=== PATIENT | female | born 1940 | race Caucasian/White ===

== ENCOUNTER 2021-12-03 12:05 | Inpatient (IN) ==
[2021-12-03 13:01] LABS: Basophils # (auto) 0.04 K/uL (0-0.2); Basophils % (auto) 0.6 %; Eosinophils # (auto) 0.21 K/uL (0-0.50); Eosinophils % (auto) 3.1 %; Hematocrit (blood only) 28.6 % (34.1-44.9); Hemoglobin 9.3 g/dl (12.0-16.0); Immature Granulocytes # (auto) 0.03 K/uL (0.00-0.02); Immature Granulocytes % (auto) 0.4 %; Lymphocytes # (auto) 0.92 K/uL (1.2-3.4); Lymphocytes % (auto) 13.4 %; Mean Corpuscular Hemoglobin 28.8 pg (25.0-34.0); Mean Corpuscular Hgb Conc 32.5 g/dL (32.0-36.0); Mean Corpuscular Volume 88.5 fL (80.0-100.0); Mean Platelet Volume 10.4 fL (9.4-12.3); Monocytes # (auto) 0.86 K/uL (0.24-0.82); Monocytes % (auto) 12.5 %; Neutrophils # (auto) 4.82 K/uL (1.4-6.5); Platelet Count 299 K/uL (130-400); RDW Standard Deviation 45.4 fL (36.4-46.3); Red Blood Count 3.23 M/uL (3.93-5.22); White Blood Count 6.88 K/ul (4.8-10.8)
--- NOTE | 2021-12-03 13:11 | XRay Report ---
XR chest 2V PA/lateral HISTORY: 81 years-old Female SOB acute shortness of breath COMPARISON: None TECHNIQUE: PA and lateral views of the chest FINDINGS: Cardiac silhouette is enlarged. Pulmonary vascular congestion. Mild reticular interstitial coarsening with trace pleural effusions. No pneumothorax or lobar airspace consolidation. Mild linear left midl shalom atelectasis versus scarring. Degenerative changes of the shoulders and spine. IMPRESSION: 1. Cardiomegaly with pulmonary vascular congestion and mild interstitial pulmonary edema. 2. Trace pleural effusions. ACT 112: Negative or not required by law. The above report was generated using voice recognition software. It may contain grammatical, syntax o r spelling errors. Electronically signed by: Helio Bennett M.D. 12/03/2021 1:09 PM
[2021-12-03 13:16] LABS: INR 1.1 (0.9-1.1); Partial Thromboplastin Time 27.1 Seconds (21.0-31.0); Prothrombin Time 11.5 Seconds (9.0-12.0)
[2021-12-03] MEDS ORDERED: ACETAMINOPHEN 1,000 MG/100 ML VIAL IV STA (13:20)
[2021-12-03] MEDS ORDERED: FUROSEMIDE 40 MG/4 ML VIAL IV ONE (13:20)
--- NOTE | 2021-12-03 13:31 | Emergency Department Note ---
Impression & Plan Acute on chronic heart failure with preserved ejection fraction (HFpEF), Atrial fibrillation, Breathlessness ED Provider Note Provider: Napoleon Nice MD DATE OF SERVICE: 12/03/2021 CHIEF COMPLAINT: Shortness of breath, swelling HISTORY OF PRESENT ILLNESS: Patient is a 81-year-old female with a history of atrial fibrillation on Eliquis, hypertension, and breast cancer presenting here today reporting worsening shortness of breath developing over the last week or 2. Some shortness of breath with exertion as well as increased swelling of both the legs. Does report she is a history of some heart failure as well and does take 40 mg of Lasix daily which has been taking including this morning. No sick contacts reported. No significant fevers reported. Denies chest pain. Has been traveling quite a bit and from the [place] originally in town visiting daughter today. Reports her last several days some increased pain around her left hip. This it has given her issues in the past related to hip replacement here but inserting a little bit more over the past 15 to 20 minutes she reports. No trauma or falls reported. Denies other significant abdominal pain. Denies chest pain again. REVIEW OF SYSTEMS: A total of 10 review of systems was obtained and negative except as stated above in the HPI. PAST MEDICAL HISTORY: As noted above MEDICATIONS: Reviewed home medications SOCIAL HISTORY: Normally lives in [place] PHYSICAL EXAM: GENERAL: alert and oriented on stretcher tachypneic Head: normocephalic and atraumatic EYES: No injection, discharge or icterus. NECK: Trachea midline. Supple. ENT: Mucous membranes pink and moist. LUNGS: Airway patent. No retractions. Breath sounds diminished with crackles in the bases and some increased work of breathing. HEART: Irregular rate and rhythm. No chest wall tenderness ABDOMEN: Soft and non-tender, without guarding or rebound. SKIN: Acyanotic, warm, dry, without rashes EXTREMITIES: 2+ lower extremity swelling from the knees down without active weeping noted. NEUROLOGICAL: No focal deficits. No aphasia. No facial droop or slurred speech. EK bpm atrial fibrillation. No acute ST segment elevation with some n onspecific T wave changes. QTc 479. CONTINUOUS CARDIAC MONITORING: was ordered and showed a heart rate of 80s-90s bpm in atrial fibrilation Patient's laboratory studies and imaging reviewed. Differential includes Reactive airway disease, pneumonia, pneumothorax, COPD, CHF, infections, cardiac ischemia, pulmonary embolism, musculoskeletal, gastrointestinal, as well as other pathologies. IMPRESSION/MEDICAL DECISION MAKING: Patient significant history of atrial fibrillation appears rate controlled at this time on amiodarone by report as well as anticoagulation which she states compliance with. Clinical evidence of fluid overload given some additional Lasix here initially. COVID test was sent. Complaining of some left hip pain as well and x-rays ordered here although history of replacement and no recent trauma; given her improvement with just Tylenol will cancel. Doubt this is in fectious or again bony in nature. She is working to breathe some at rest. Borderline hypoxia in the low 90s here on room air at rest. Blood work with some mild anemia. Creatinine 1.77 and unsure of baseline but states she has been referred to a kidney doctor to see so question if she has some underlying baseline CKD. No significant troponin elevation or LFT abnormality noted likely. Patient is anticoagulated and I doubt PE. Given her shortness of breath/work of breathing while at rest di scussed with her monitored diuresis with her CKD here at the hospital and her and her family were in agreement. Hospitalist contacted. DIAGNOSIS: CHF exacerbation, shortness of breath, atrial fibrillation, Left hip pain DISPOSITION: Hospitalist will evaluate Patient was agreeable with this plan. Past Med/Surg History Medical History Atrial fibrillation Breast cancer R breast cancer, s/p 21 XRT tx and lumpectomy Celiac disease CHF (congestive heart failure) Chronic low back pain Dermatitis herpetiformis GERD (gastroesophageal reflux disease) HTN (hypertension) Mitral valve prolapse Neuropathy RLS (restless legs syndrome) Surgical History History of left knee replacement History of right knee joint replacement History of tubal ligation Hx of foot surgery tendon release due to contracture S/P bilateral hip replacements Family History Other Family history non-contributory Social History Smoking Status: Never smoker Second Hand Exposure: No; Do You Dip or Chew Tobacco: No; Tobacco Cessation Education Requested by Patient: No Hx Alcohol Use: Yes Alcohol type: wine Alcohol Intake Frequency Comment: Socially Hx Substance Use: No Preferred Language: [place] Communication Ability: Effective Information Technology Administrator Required: No Beliefs That Will Affect Care: None marital status: / Current Living Situation: Alone Current Living Situation Comment: Lives in [place] current occupational status: retired Feels Safe at Home: Yes Safety Concerns: Feels Safe At This Time Assistive Devices: CPAP Allergies Allergies Allergy/AdvReac Type Severity Reaction Status Date / Time ferrous sulfate Allergy Diarrhea Verified 12/03/21 14:52 gluten Allergy Dermatitis Verified 12/03/21 14:52 herpetiformis pramipexole [From Mirapex] Allergy Dizziness Verified 12/03/21 14:52 Home Meds Home Medications Medication Instructions Recorded Confirmed acetaminophen 300 mg-codeine 30 mg 1 tab PO Q6H PRN Pain 12/03/21 12/03/21 tablet amiodarone 100 mg tablet 100 mg PO DAILY 12/03/21 12/03/21 apixaban 2.5 mg tablet 2.5 mg PO BID 12/03/21 12/03/21 calcium carbonate 500 mg-vitamin 1 tab PO DAILY 12/03/21 12/03/21 D3 10 mcg (400 unit) tablet carvedilol 12.5 mg tablet 12.5 mg PO BIDM 12/03/21 12/03/21 dapsone 25 mg tablet 25 mg PO DAILY PRN celiac disease 12/03/21 12/03/21 diltiazem HCl 240 mg 240 mg PO DAILY 12/03/21 12/03/21 capsule,extended release 24 hr furosemide 40 mg tablet 40 mg PO DAILY 12/03/21 12/03/21 gabapentin 400 mg capsule 400 mg PO QID 12/03/21 12/03/21 hydralazine 50 mg tablet 50 mg PO TID 12/03/21 12/03/21 lactobacillus combination no.4 3 3,000 mmu cells PO DAILY 12/03/21 12/03/21 billion cell capsule (Probiotic) multivitamin 2 tab PO DAILY 12/03/21 12/03/21 omeprazole 40 mg capsule,delayed 40 mg PO DAILY 12/03/21 12/03/21 release ropinirole 0.25 mg tablet 0.25 mg PO HS 12/03/21 12/03/21 rotigotine 1 mg/24 hour 1 mg transdermal DAILY 12/03/21 12/03/21 transdermal 24 hour patch (Neupro) zolpidem 6.25 mg tablet,extended 6.25 mg PO HS 12/03/21 12/03/21 release,multiphase Results & Data (ED) Vital Signs Vital Signs - 24 hr 12/03/21 12:06 12/03/21 12:10 12/03/21 12:37 Temperature 36.4 C L Temperature Source Temporal Artery Scan Pulse Rate 94 H Respiratory Rate 18 Respiratory Effort / Characteristics Non-Labored Respiratory Depth Normal Blood Pressure Position Sitting Pulse Oximetry 92 Oxygen Delivery Method Room Air Room Air Room Air Sepsis Recent Fever Within 48 Hours No Sepsis New/Unexplained Change in Mental Status No Sepsis Action Taken by Nursing No Action Required 12/03/21 12:37 12/03/21 12:37 12/03/21 12:37 Temperature Temperature Source Pulse Rate Respiratory Rate Respiratory Effort / Characteristics Spontaneous Respiratory Depth Blood Pressure Position Pulse Oximetry Oxygen Delivery Method Room Air Room Air Sepsis Recent Fever Within 48 Hours Sepsis New/Unexplained Change in Mental Status Sepsis Action Taken by Nursing Laboratory Data Result diagrams: 12/03/21 12:46 12/03/21 12:46 Lab Results 12/03/21 12/03/21 12/03/21 Range/Units 12:40 12:46 12:46 WBC 6.88 (4.8-10.8) K/ul RBC 3.23 L (3.93-5.22) M/uL Hgb 9.3 L (12.0-16.0) g/dl Hct 28.6 L (34.1-44.9) % MCV 88.5 (80.0-100.0) fL MCH 28.8 (25.0-34.0) pg MCHC 32.5 (32.0-36.0) g/dL RDW Std Deviation 45.4 (36.4-46.3) fL RDW Coeff of Carol Ann 14.0 (11.5-14.5) % Plt Count 299 (130-400) K/uL MPV 10.4 (9.4-12.3) fL Immature Gran % (Auto) 0.4 % Neut % (Auto) 70.0 % Lymph % (Auto) 13.4 % Pinal % (Auto) 12.5 % Eos % (Auto) 3.1 % Baso % (Auto) 0.6 % Neut # (Auto) 4.82 (1.4-6.5) K/uL Lymph # (Auto) 0.92 L (1.2-3.4) K/uL Pinal # (Auto) 0.86 H (0.24-0.82) K/uL Eos # (Auto) 0.21 (0-0.50) K/uL Baso # (Auto) 0.04 (0-0.2) K/uL Immature Gran # (Auto) 0.03 H (0.00-0.02) K/uL PT 11.5 (9.0-12.0) Seconds INR 1.1 (0.9-1.1) APTT 27.1 (21.0-31.0) Seconds PTT Ratio 1.0 Sodium (136-145) mmol/L Potassium (3.5-5.1) mmol/L Chloride (98-107) mmol/L Carbon Dioxide (21-32) mmol/L Anion Gap (3-11) BUN (6-23) mg/dl Creatinine (0.6-1.2) mg/dl Est Cr Clr Drug Dosing ml/min Est GFR ( Amer) ml/min Est GFR (Non-Af Amer) ml/min BUN/Creatinine Ratio (10-20) Glucose (70-99(Fasting)) mg/dl Calcium (8.5-10.1) mg/dl Magnesium (1.7-2.4) mg/dl Total Bilirubin (0.2-1.0) mg/dl AST (13-39) U/L ALT (7-52) U/L Alkaline Phosphatase (34-104) U/L Troponin I High Sens (0-14) pg/ml B-Natriuretic Peptide (0-100) pg/ml Total Protein (6.0-8.3) gm/dl Albumin (3.4-5.0) gm/dl Globulin (2.5-4.0) gm/dl Albumin/Globulin Ratio (0.9-2) TSH 1.333 (0.300-4.500) uIu/ml SARS-CoV-2, RNA, NAAT (NEGATIVE) 12/03/21 12/03/21 12/03/21 Range/Units 12:46 12:46 13:43 WBC (4.8-10.8) K/ul RBC (3.93-5.22) M/uL Hgb (12.0-16.0) g/dl Hct (34.1-44.9) % MCV (80.0-100.0) fL MCH (25.0-34.0) pg MCHC (32.0-36.0) g/dL RDW Std Deviation (36.4-46.3) fL RDW Coeff of Carol Ann (11.5-14.5) % Plt Count (130-400) K/uL MPV (9.4-12.3) fL Immature Gran % (Auto) % Neut % (Auto) % Lymph % (Auto) % Pinal % (Auto) % Eos % (Auto) % Baso % (Auto) % Neut # (Auto) (1.4-6.5) K/uL Lymph # (Auto) (1.2-3.4) K/uL Pinal # (Auto) (0.24-0.82) K/uL Eos # (Auto) (0-0.50) K/uL Baso # (Auto) (0-0.2) K/uL Immature Gran # (Auto) (0.00-0.02) K/uL PT (9.0-12.0) Seconds INR (0.9-1.1) APTT (21.0-31.0) Seconds PTT Ratio Sodium 136 (136-145) mmol/L Potassium 3.7 (3.5-5.1) mmol/L Chloride 101 (98-107) mmol/L Carbon Dioxide 26 (21-32) mmol/L Anion Gap 9 (3-11) BUN 44 H (6-23) mg/dl Creatinine 1.77 H (0.6-1.2) mg/dl Est Cr Clr Drug Dosing 23.7 ml/min Est GFR ( Amer) 30.7 ml/min Est GFR (Non-Af Amer) 26.5 ml/min BUN/Creatinine Ratio 24.9 H (10-20) Glucose 114 H (70-99(Fasting)) mg/dl Calcium 8.6 (8.5-10.1) mg/dl Magnesium 2.1 (1.7-2.4) mg/dl Total Bilirubin 0.4 (0.2-1.0) mg/dl AST 17 (13-39) U/L ALT 22 (7-52) U/L Alkaline Phosphatase 61 (34-104) U/L Troponin I High Sens 4.8 (0-14) pg/ml B-Natriuretic Peptide 272 H (0-100) pg/ml Total Protein 6.3 (6.0-8.3) gm/dl Albumin 3.7 (3.4-5.0) gm/dl Globulin 2.6 (2.5-4.0) gm/dl Albumin/Globulin Ratio 1.4 (0.9-2) TSH (0.300-4.500) uIu/ml SARS-CoV-2, RNA, NAAT NEGATIVE (NEGATIVE) Administered Medications Carvedilol (Carvedilol 12.5 Mg Tab) 12.5 mg PO BIDM [facility] Stop: 01/02/22 16:59 Last Admin: 12/03/21 17:18 Dose: 12.5 mg Documented By: JASPAL Amiodarone HCl/Dextrose (Nexterone / D5w) 360 mg in 200 mls @ 33.333 mls/hr IV ONE ONE Stop: 12/03/21 22:59 Last Admin: 12/03/21 17:21 Dose: 1 mg/min, 33.3 mls/hr Documented By: JASPAL Co-signed By: MS Gautam (*Neupro*Order Awaiting Action) 1 each N/A QS [facility] Stop: 01/02/22 16:59 Last Admin: 12/03/21 17:15 Dose: Not Given Documented By: JASPAL Discontinued Medications Amiodarone HCl (Amiodarone Iv Bolus & Drip) 1 each IV NOW STA; Protocol Stop: 12/03/21 16:52 Last Admin: 12/03/21 18:06 Dose: Not Given Documented By: MaribelT Furosemide (Furosemide 40 Mg/4 Ml Vial) 40 mg IV ONE ONE Stop: 12/03/21 13:21 Last Admin: 12/03/21 13:36 Dose: 40 mg Documented By: APRIL Acetaminophen (Ofirmev) 1,000 mg in 100 mls @ 400 mls/hr IV NOW STA Stop: 12/03/21 13:34 Last Infusion: 12/03/21 13:51 Dose: 0 mls/hr Documented By: Admin: 12/03/21 13:36 Dose: 400 mls/hr Documented By: APRIL Amiodarone HCl/Dextrose (Nexterone / D5w) 150 mg in 100 mls @ 600 mls/hr IV NOW STA Stop: 12/03/21 17:00 Last Infusion: 12/03/21 17:21 Dose: 0 mls/hr Documented By: JASPAL Co-signed By: Admin: 12/03/21 17:10 Dose: 600 mls/hr Documented By: JT Co-signed By: Potassium Chloride (Potassium Chloride Crtab 20 Meq Tabcr) 40 meq PO NOW STA Stop: 12/03/21 15:52 Last Admin: 12/03/21 16:28 Dose: 40 meq Documented By: JASPAL Imaging Data Radiologist's Impression: Chest X-Ray 12/03/21 12:10 XR chest 2V PA/lateral HISTORY: 81 years-old Female SOB acute shortness of breath COMPARISON: None TECHNIQUE: PA and lateral views of the chest FINDINGS: Cardiac silhouette is enlarged. Pulmonary vascular congestion. Mild reticular interstitial coarsening with trace pleural effusions. No pneumothorax or lobar airspace consolidation. Mild linear left midlung atelectasis versus scarring. Degenerative changes of the shoulders and spine. IMPRESSION: 1. Cardiomegaly with pulmonary vascular congestion and mild interstitial pulmonary edema. 2. Trace pleural effusions. ACT 112: Negative or not required by law. The above report was generated using voice recognition software. It may contain grammatical, syntax or spelling errors. Electronically signed by: Helio Bennett M.D. 12/03/2021 1:09 PM Discharge Plan Visit Data Chief Complaint: Shortness of Breath/Dyspnea Stated Complaint: CONGESTIVE HEART FAILURE, SOB, SWELLING ED Provider: Napoleon Nice Discharge Problem: Acute on chronic heart failure with preserved ejection fraction (HFpEF), Atrial fibrillation, Breathlessness Patient Disposition: Admitted As Inpatient Discharge Instructions Interventions: ED Discharge Assessment Last Done: 12/03/21 14:40
[2021-12-03 13:33] LABS: Albumin Globulin Ratio 1.4 (0.9-2); Albumin Level 3.7 gm/dl (3.4-5.0); BUN Creatinine Ratio 24.9 (10-20); Bilirubin,Total 0.4 mg/dl (0.2-1.0); Calcium 8.6 mg/dl (8.5-10.1); Creatinine Clr Calc Pharmacy 23.7 ml/min; Est GFR (African American) 30.7 ml/min; Est GFR (Non-African American) 26.5 ml/min; Globulin 2.6 gm/dl (2.5-4.0); Magnesium 2.1 mg/dl (1.7-2.4); Potassium 3.7 mmol/L (3.5-5.1); Total Protein 6.3 gm/dl (6.0-8.3); Troponin I High Sensitivity 4.8 pg/ml (0-14)
--- NOTE | 2021-12-03 14:18 | Electrocardiogram Report ---
Test Reason : Blood Pressure : / mmHG Vent. Rate : 089 BPM Atrial Rate : 300 BPM P-R Int : 000 ms QRS Dur : 086 ms QT Int : 394 ms P-R-T Axes : 000 040 053 degrees QTc Int : 479 ms Atrial fibrillation Septal infarct , age undetermined Abnormal ECG No previous ECGs available Confirmed by Amadou Cifuentes ([id number]) on 12/03/2021 2:18:02 PM Referred By: REFERRED SELF Confirmed By:Amadou Cifuentes
--- NOTE | 2021-12-03 15:08 | History & Physical Report ---
Date of Service December 03, 2021 Assessment & Plan (1) Hypoxia: (2) CHF (congestive heart failure): (3) Atrial fibrillation: (4) HTN (hypertension): Plan This is an 81-year-old female who has a significant past medical history of atrial fibrillation anticoagulated on Eliquis, CHF, chronic low back and hip pain, history of right breast cancer status postlumpectomy and radiation, RLS, neuropathy, mitral valve prolapse, GERD, celiac disease, dermatitis herpetiformis, CKD stage III with unknown baseline creatinine who presents to ED secondary worsening shortness of breath and lower extremity swelling for 2 to 3 weeks. Pt resides in [place] and is followed by PCP Sonal Bender [facility] and acetone button paster Dr. Hu Washington of [facility] in [place]. She has been having progressive dyspnea for the past 2-3 weeks. Also c/o lower extremity swelling. Admits SOB has been on going for the last several months but recently worsening. Has been traveling to see family the past 2-3 weeks. Was hosp approx 1 month ago at [facility]. Prior to that hospitalization was active and walking daily, currently unable to do so due to SOB. Mild elevation in BNP and CXR concerning for decompensated CHF. Received 40mg IV lasix in ED. Hypoxia Acute CHF - unknown type awaiting echo admit to tele pt saturating 91% RA, but dyspneic with conversation, was placed on 2L obtain echocardiogram, consult cardiology received 40mg IV lasix in ED, also took her home dose of 40mg oral lasix. Monitor output Lasix 40mg IV daily, + KCL strict intake and output anderson cath ordered daily weights, low sodium, heart healthy diet CHF likely playing role; however degree of dyspnea appears out of proportion to degree of CHF other possibilities are PE (however, pt anticoagulated on eliquis and given cr would not perform CTA as will not knife changer), intolerance to current afib, anemia, pulmonary etiology, ? amio tox obtain bilateral venous Doppler, will await echo hold home lasix obtain thyroid studies obtain records from [facility] Dr. Hu Washington as well as PCP Sonal Bender, BPM ARCHITECT-C Atrial fibrillation rate controlled on diltiazem, amiodarone and eliquis pt states normally she is in NSR continue home meds, consult cards await echo results give 40meq KCL x 1 now to keep K > 4.0, mag is adequate CKD -3 baseline cr 1.6-1.8 per PCP office bun/cr 44 and 1.77 obtaining records from PCP per pt, she is scheduled to see nephro on 12/16 to establish care monitor renal fxn given diuresis Anemia unknown baseline h/h 9.3 and 28.6 denies bleeding obtain anemia panel in a.m. Celiac Disease/Dermatitis herpetiformis dapsone prn, GF diet HTN bp controlled in ED continue coreg, hydralazine, diltiazem Chronic back/L hip pain previous L hip replacement, XR ordered pt states she follows ortho in [place], they feel it is likely bursitis PT/OT when able on apap-codeine prn, gabapentin RLS continue require and neupro patch DVT ppx: Eliquis Dispo: PCU, Pt lives alone in [place] in 1st floor setup with 2 steps to enter, typically independent of adls/iadls, here visiting in [place] with Daughter in law FULL CODE - discussed with patient at bedside PCP: Sonal Bender, [place], [place] Pt was seen and examined in collaboration with Dr. Cavanaugh, please see addendum The chart was completed utilizing [employer] Speech voice recognition software. Grammatical errors, random word insertions, pronoun errors, and incomplete sentences are an occasional consequence of this system due to software limitations, ambient noise, and hardware issues. Any formal questions or concerns about the content, text, or information contained within the body of this dictation should be directly addressed to the provider for clarification. History of Present Illness Chief Complaint: Worsening SOB/lower extremity swelling x 2-3 weeks. Primary Care Provider: PCP: Sonal Bender [place], [place] This is an 81-year-old female who has a significant past medical history of atrial fibrillation anticoagulated on Eliquis, CHF, chronic low back and hip pain, history of right breast cancer status postlumpectomy and radiation, RLS, neuropathy, mitral valve prolapse, GERD, celiac disease, dermatitis herpetiformis, CKD stage III with unknown baseline creatinine who presents to ED secondary worsening shortness of breath and lower extremity swelling for 2 to 3 weeks. Patient currently resides by herself in [place], [place]. She has been on the road for the past 3 weeks visiting family and is currently with her [id number] at bedside. Of significance she was hospitalized approximately 1 month ago at [facility] in [place]. She was monitored overnight and treated with IV diuresis due to CHF exacerbation and discharged home. Currently she is maintained on Lasix 40 mg daily. She has been unable to monitor her weights while being on the road. Over the last 6 months she has noticed an increase in pant size from a 10 to a 12. Over the last 2 to 3 weeks she has noticed a steady increase in lower extremity swelling even up to her knees. She also complains of shortness of breath at rest, with conversation and with exertion. Prior to her hospitalization 1 month ago she was walking on a regular basis for exercise. She does have known history of A. fib and states typically she is in sinus rhythm. She has been compliant with her amiodarone and Eliquis and has not missed any doses. She denies any recent fever, chills, sweats, lightheadedness, dizziness, fall, chest pain, cough, hemoptysis, URI symptoms, nausea, vomiting, abdominal pain, dysuria, increased urgency or frequency with urination, hematuria or melena. She has noticed an overall decrease in her urination. She also states her diet has fluctuated over the past 2 to 3 weeks secondary to recent travel. She does try to monitor her salt intake. She was recently placed on hydralazine, but otherwise no new meds changing. Allergies Allergy/AdvReac Type Severity Reaction Status Date / Time ferrous sulfate Allergy Diarrhea Verified 12/03/21 14:52 gluten Allergy Dermatitis Verified 12/03/21 14:52 herpetiformis pramipexole [From Mirapex] Allergy Dizziness Verified 12/03/21 14:52 Home Medications Medication Instructions Recorded Confirmed Type acetaminophen 300 mg-codeine 30 mg 1 tab PO Q6H PRN Pain 12/03/21 12/03/21 Hi story tablet amiodarone 100 mg tablet 100 mg PO DAILY 12/03/21 12/03/21 History apixaban 2.5 mg tablet 2.5 mg PO BID 12/03/21 12/03/21 History calcium carbonate 500 mg-vitamin 1 tab PO DAILY 12/03/21 12/03/21 History D3 10 mcg (400 unit) tablet carvedilol 12.5 mg tablet 12.5 mg PO BIDM 12/03/21 12/03/21 History dapsone 25 mg tablet 25 mg PO DAILY PRN celiac disease 12/03/21 12/03/21 History diltiazem HCl 240 mg 240 mg PO DAILY 12/03/21 12/03/21 History capsule,extended release 24 hr furosemide 40 mg tablet 40 mg PO DAILY 12/03/21 12/03/21 History gabapentin 400 mg capsule 400 mg PO QID 12/03/21 12/03/21 History hydralazine 50 mg tablet 50 mg PO TID 12/03/21 12/03/21 History lactobacillus combination no.4 3 3,000 mmu cells PO DAILY 12/03/21 12/03/21 History billion cell capsule (Probiotic) multivitamin 2 tab PO DAILY 12/03/21 12/03/21 History omeprazole 40 mg capsule,delayed 40 mg PO DAILY 12/03/21 12/03/21 History release ropinirole 0.25 mg tablet 0.25 mg PO HS 12/03/21 12/03/21 History rotigotine 1 mg/24 hour 1 mg transdermal DAILY 12/03/21 12/03/21 History transdermal 24 hour patch (Neupro) zolpidem 6.25 mg tablet,extended 6.25 mg PO HS 12/03/21 12/03/21 History release,multiphase Past Med/Surg History Medical History Atrial fibrillation Breast cancer R breast cancer, s/p 21 XRT tx and lumpectomy Celiac disease CHF (congestive heart failure) Chronic low back pain Dermatitis herpetiformis GERD (gastroesophageal reflux disease) HTN (hypertension) Mitral valve prolapse Neuropathy RLS (restless legs syndrome) Surgical History History of left knee replacement History of right knee joint replacement History of tubal ligation Hx of foot surgery tendon release due to contracture S/P bilateral hip replacements Family History Other Family history non-contributory Social History Smoking Status: Never smoker Second Hand Exposure: No; Do You Dip or Chew Tobacco: No; Tobacco Cessation Education Requested by Patient: No Hx Alcohol Use: Yes Alcohol type: wine Alcohol Intake Frequency Comment: Socially Hx Substance Use: No Preferred Language: German Communication Ability: Effective General Foundry Worker Required: No Beliefs That Will Affect Care: None marital status: / Current Living Situation: Alone Current Living Situation Comment: Lives in [place] current occupational status: retired Feels Safe at Home: Yes Safety Concerns: Feels Safe At This Time Assistive Devices: CPAP Review of Systems Review of Systems: All systems reviewed & are unremarkable except as noted in HPI & below Physical Exam Physical Exam: Constitutional: WD/WN, Elderly F, vitals as above, tachypneic with conversation, NAD, sitting up in bed, pleasant Head: Normocephalic, Atraumatic Eyes: PERRL, conjunctivae normal, anicteric sclerae ENMT: external ear and nose normal, oropharynx normal Neck: trachea midline, no thyromegaly normal visual inspection Respiratory: increased respiratory effort, +tachypnea, lungs clear to auscultat ion, no wheeze, rales, rhonchi. Normal insp/exp effort, no accessory muscle use Cardiovascular: regular rate, Irregular rhythm, no murmur appreciated, trace to +1 pre tibial edema Vessels: no JVD or carotid bruit Chest: normal inspection of chest Abdomen: normal bowel sounds, soft, nontender, no hepatosplenomegaly Musculoskeletal: no cyanosis or clubbing, AROM x 4 Skin: no rashes, warm and dry normal turgor Neurologic: PERRL, EOMI, accommodation nl, no face palsy, no dysarthria CN's II-XI intact bilaterally and moves all extremities Psychiatric: A+Ox3, euthymic affect Lymphatic: no cervical or axillary lymphadenopathy : deferred Results & Data Results & Data ([facility]) Vital Signs (Past 12 Hours) Vital Signs Temp Pulse Resp BP Pulse Ox O2 Del Method 12/03/21 14:40 36.8 C 102 H 20 136/87 93 Room Air 12/03/21 12:37 Room Air 12/03/21 12:37 Room Air 12/03/21 12:37 Room Air 12/03/21 12:10 Room Air 12/03/21 12:06 36.4 C L 94 H 18 92 Room Air Laboratory Results Short CBC 12/03/21 Range/Units 12:46 WBC 6.88 (4.8-10.8) K/ul Hgb 9.3 L (12.0-16.0) g/dl Hct 28.6 L (34.1-44.9) % Plt Count 299 (130-400) K/uL BMP 12/03/21 12:46 Sodium 136 Potassium 3.7 Chloride 101 Carbon Dioxide 26 BUN 44 H Creatinine 1.77 H Glucose 114 H Calcium 8.6 Liver Function 12/03/21 Range/Units 12:46 Total Bilirubin 0.4 (0.2-1.0) mg/dl AST 17 (13-39) U/L ALT 22 (7-52) U/L Alkaline Phosphatase 61 (34-104) U/L Albumin 3.7 (3.4-5.0) gm/dl Diagnostic Findings Chest X-Ray 12/03/21 12:10 XR chest 2V PA/lateral HISTORY: 81 years-old Female SOB acute shortness of breath COMPARISON: None TECHNIQUE: PA and lateral views of the chest FINDINGS: Cardiac silhouette is enlarged. Pulmonary vascular congestion. Mild reticular interstitial coarsening with trace pleural effusions. No pneumothorax or lobar airspace consolidation. Mild linear left midlung atelectasis versus scarring. Degenerative changes of the shoulders and spine. IMPRESSION: 1. Cardiomegaly with pulmonary vascular congestion and mild interstitial pulmonary edema. 2. Trace pleural effusions. ACT 112: Negative or not required by law. The above report was generated using voice recognition software. It may contain grammatical, syntax or spelling errors. Electronically signed by: Helio Bennett M.D. 12/03/2021 1:09 PM Medications Administered Medication List Discontinued Medications Furosemide (Furosemide 40 Mg/4 Ml Vial) 40 mg IV ONE ONE Stop: 12/03/21 13:21 Last Admin: 12/03/21 13:36 Dose: 40 mg Documented By: APRIL Acetaminophen (Ofirmev) 1,000 mg in 100 mls @ 400 mls/hr IV NOW STA Stop: 12/03/21 13:34 Last Infusion: 12/03/21 13:51 Dose: 0 mls/hr Documented By: Admin: 12/03/21 13:36 Dose: 400 mls/hr Documented By: BK ECG Rate (beats per minute): 89 Rhythm: atrial fibrillation Additional Comments: qtc 479ms COVID-19 Results Results COVID-19 Adm Lab Results: RBC 3.23 M/uL (3.93-5.22) L 12/03/21 WBC 6.88 K/ul (4.8-10.8) 12/03/21 Hgb 9.3 g/dl (12.0-16.0) L 12/03/21 Hct 28.6 % (34.1-44.9) L 12/03/21 Plt Count 299 K/uL (130-400) 12/03/21 Neutrophils (%) (Auto) 70.0 % 12/03/21 Lymphocytes (%) (Auto) 13.4 % 12/03/21 Monocytes # (Auto) 0.86 K/uL (0.24-0.82) H 12/03/21 Eosinophils # (Auto) 0.21 K/uL (0-0.50) 12/03/21 Immature Granulocyte % (Auto) 0.4 % 12/03/21 Neutrophils # (Auto) 4.82 K/uL (1.4-6.5) 12/03/21 Lymphocytes # (Auto) 0.92 K/uL (1.2-3.4) L 12/03/21 Monocytes # (Auto) 0.86 K/uL (0.24-0.82) H 12/03/21 Eosinophils # (Auto) 0.21 K/uL (0-0.50) 12/03/21 Basophils # (Auto) 0.04 K/uL (0-0.2) 12/03/21 Immature Granulocyte # (Auto) 0.03 K/uL (0.00-0.02) H 12/03 Na 136 mmol/L (136-145) 12/03/21 K 3.7 mmol/L (3.5-5.1) 12/03/21 Cl 101 mmol/L (98-107) 12/03/21 CO2 26 mmol/L (21-32) 12/03/21 Anion Gap 9 (3-11) 12/03/21 BUN 44 mg/dl (6-23) H 12/03/21 Creatinine 1.77 mg/dl (0.6-1.2) H 12/03/21 BUN/Creatinine Ratio 24.9 (10-20) H 12/03/21 Glucose Level 114 mg/dl (70-99(Fasting)) H 12/03/21 Ca 8.6 mg/dl (8.5-10.1) 12/03/21 Total Bilirubin 0.4 mg/dl (0.2-1.0) 12/03/21 AST/SGOT 17 U/L (13-39) 12/03/21 ALT/SGPT 22 U/L (7-52) 12/03/21 Alkaline Phosphatase 61 U/L (34-104) 12/03/21 Total Protein 6.3 gm/dl (6.0-8.3) 12/03/21 Albumin 3.7 gm/dl (3.4-5.0) 12/03/21 Globulin 2.6 gm/dl (2.5-4.0) 12/03/21 Albumin/Globulin Ratio 1.4 (0.9-2) 12/03/21 PTT 27.1 Seconds (21.0-31.0) 12/03/21 INR 1.1 (0.9-1.1) 12/03/21 SARS-CoV-2, RNA, NAAT NEGATIVE (NEGATIVE) 12/03/21 Chest X-Ray 12/03/21 Code Status & VTE Plan Code Status FULL CODE VTE Prophylaxis Plan VTE Prophylaxis will be ordered: No Supervising Physician Co-Signing Physician Notes I have seen and examined the patient and have discussed the case with the provider above. I agree with the assessment and plan as stated with the following exceptions. 81 yo F presents with overt SOB and hypoxia with minimal movement worse over the past 6 days. She is in atrial fibrillation and is unknown to us with no records, but this is not a new diagnosis for her. Heart rate is minimally elevated in the 90s-low 100s. She denies cough, fevers, chills or other signs/symptoms of infection. She is on anticoagulation making PE/DVT less likely but considered given the acute presentation. She has a normal HS troponin and no chest pain with atrial fibrillation without ST changes to suggest ischemia; ACS seems less likely. BNP only minimally elevated in the 200s. CXR reveals pulmonary vascular congestion but this severity does not appear to match the clinical picture. On physical exam she is dyspneic with conversation and with minimal movement, such as leaning forward, she dropped to 85% oxygen saturation. Lungs with minimal crackles at bases bilaterally and good airflow throughout. CV: S1/2 heard without m/g/r/ and no edema present (compression stockings taken off with this evaluation) in legs or feet bilaterally. Neuro: no gross focal deficits PSych: alert and oriented. Per cardiology who performed an echo this evening, she has a preserved ejection fraction. She received Lasix in the ER and a anderson was being placed for accurate I/Os. She was started on an amio drip. Cont to monitor in PCU. Records were requested from hospital stay and PCP notes. DO [facility] Hospital[facility] (1) CHF (congestive heart failure) Heart failure type: diastolic Heart failure chronicity: acute Qualified Code(s): I50.31 - Acute diastolic (congestive) heart failure (2) Atrial fibrillation Atrial fibrillation type: unspecified chronic Qualified Code(s): I48.20 - Chr onic atrial fibrillation, unspecified (3) HTN (hypertension) Hypertension type: unspecified Qualified Code(s): I10 - Essential (primary) hypertension
[2021-12-03] MEDS ORDERED: POTASSIUM CHLORIDE CRTAB 20 MEQ TABCR PO STA (15:51)
--- NOTE | 2021-12-03 16:06 | Cardiology Consultation ---
Date of Consultation December 03, 2021 Assessment & Plan (1) Acute on chronic heart failure with preserved ejection fraction (HFpEF): * Echocardiogram performed today reviewed independently reveals preserved LVEF. Atrial fibrillation with mildly elevated ventricular rate in the range of 100 110 bpm noted at the time of echo. * Agree with furosemide 40 mg IV daily, and substitute for 40 mg p.o. daily. Her creatinine of 1.7 appears to be relatively similar to her baseline. * Continue carvedilol. Patient is not on NARA/ARB at baseline. (2) Atrial fibrillation: * As noted, patient believes she has been on oral amiodarone for at least 6 years. No recent cardioversions but feels that perhaps this had occurred in the remote past. * Will hold oral amiodarone and start IV amiodarone to see if we can facilitate better rate control and may be from rhythm control. * Continue anticoagulation with Eliquis dose is already appropriately adjusted to 2.5 mg twice daily for her age and kidney function. * Continue carvedilol, diltiazem. * May consider cardioversion this admission, but will wait until volume status is improved. History of Present Illness Attending Physician: Ada Mead is an 81-year-old female seen in cardiology consultation per the request of Yvette Garcia PA-C for the evaluation of congestive heart failure. Patient is accompanied by her [id number], Peri, who lives locally and is actually a patient of [facility]. Patient resides in [place], [place] and has a history of congestive heart failure, atrial fibrillation, hypertension, and stage III chronic kidney disease. Patient has been traveling for the last 3 weeks with noted slow, progressive, worsening lower extremity edema and has developed progressive shortness of breath with walking even with minimal distances of about 10 feet. She had been hospitalized a [facility] in [place] about a month ago for similar symptoms. She believes she was in sinus rhythm at the time of that hospital stay. She does not recall how long she has had atrial fibrillation for, but notes that she has been on amiodarone for at least 6 years since she had moved from [place] to [facility] She denies any past history of known coronary heart disease, coronary stenting, bypass surgery, or valve surgery. Allergies Allergy/AdvReac Type Severity Reaction Status Date / Time ferrous sulfate Allergy Diarrhea Verified 12/03/21 14:52 gluten Allergy Dermatitis Verified 12/03/21 14:52 herpetiformis pramipexole [From Mirapex] Allergy Dizziness Verified 12/03/21 14:52 Home Medications Medication Instructions Recorded Confirmed Type acetaminophen 300 mg-codeine 30 mg 1 tab PO Q6H PRN Pain 12/03/21 12/03/21 History tablet amiodarone 100 mg tablet 100 mg PO DAILY 12/03/21 12/03/21 History apixaban 2.5 mg tablet 2.5 mg PO BID 12/03/21 12/03/21 History calcium carbonate 500 mg-vitamin 1 tab PO DAILY 12/03/21 12/03/21 History D3 10 mcg (400 unit) tablet carvedilol 12.5 mg tablet 12.5 mg PO BIDM 12/03/21 12/03/21 History dapsone 25 mg tablet 25 mg PO DAILY PRN celiac disease 12/03/21 12/03/21 History diltiazem HCl 240 mg 240 mg PO DAILY 12/03/21 12/03/21 History capsule,extended release 24 hr furosemide 40 mg tablet 40 mg PO DAILY 12/03/21 12/03/21 History gabapentin 400 mg capsule 400 mg PO QID 12/03/21 12/03/21 History hydralazine 50 mg tablet 50 mg PO TID 12/03/21 12/03/21 History lactobacillus combination no.4 3 3,000 mmu cells PO DAILY 12/03/21 12/03/21 History billion cell capsule (Probiotic) multivitamin 2 tab PO DAILY 12/03/21 12/03/21 History omeprazole 40 mg capsule,delayed 40 mg PO DAILY 12/03/21 12/03/21 History release ropinirole 0.25 mg tablet 0.25 mg PO HS 12/03/21 12/03/21 History rotigotine 1 mg/24 hour 1 mg transdermal DAILY 12/03/21 12/03/21 History transdermal 24 hour patch (Neupro) zolpidem 6.25 mg tablet,extended 6.25 mg PO HS 12/03/21 12/03/21 History release,multiphase Patient History Medical History Atrial fibrillation Breast cancer R breast cancer, s/p 21 XRT tx and lumpectomy Celiac disease CHF (congestive heart failure) Chronic low back pain Dermatitis herpetiformis GERD (gastroesophageal reflux disease) HTN (hypertension) Mitral valve prolapse Neuropathy RLS (restless legs syndrome) Surgical History History of left knee replacement History of right knee joint replacement History of tubal ligation Hx of foot surgery tendon release due to contracture S/P bilateral hip replacements Family History Other Family history non-contributory Social History Smoking Status: Never smoker Second Hand Exposure: Yes (); Hx Alcohol Use: Yes Alcohol Intake Frequency Comment: Socially Hx Substance Use: No Preferred Language: Belarusian Communication Ability: Effective marital status: / Current Living Situation: Alone Current Living Situation Comment: Lives in [place], [place] current occupational status: retired Feels Safe at Home: Yes Review of Systems Review of Systems: All systems reviewed & are unremarkable except as noted in HPI & below Physical Exam Constitutional: WD/WN, vitals as above Neck: trachea midline Respiratory: Auscultation: + diminished lung sounds (Mildly reduced breath sounds the bases) Cardiovascular: Rate/Rhythm: + tachycardic and + irregularly irregular Heart Sounds: no murmur Extremities: + edema (1+ lower extremity edema) Neurologic: PERRL, EOMI, accommodation nl, no face palsy, no dysarthria Genitourinary: Gonzalez catheter in place draining clear yellow urine Results & Data ([facility]) Vital Signs (Past 12 Hours) Vital Signs Temp Pulse Resp BP Pulse Ox O2 Del Method 12/03/21 14:40 36.8 C 102 H 20 136/87 93 Room Air 12/03/21 12:37 Room Air 12/03/21 12:37 Room Air 12/03/21 12:37 Room Air 12/03/21 12:10 Room Air 12/03/21 12:06 36.4 C L 94 H 18 92 Room Air Laboratory Results Cardiac Enzymes 12/03/21 12/03/21 Range/Units 12:46 12:46 AST 17 (13-39) U/L Troponin I High Sens 4.8 (0-14) pg/ml B-Natriuretic Peptide 272 H (0-100) pg/ml Coagulation 12/03/21 12/03/21 Range/Units 12:46 12:46 PT 11.5 (9.0-12.0) Seconds APTT 27.1 (21.0-31.0) Seconds B-Natriuretic Peptide 272 H (0-100) pg/ml CBC 12/03/21 Range/Units 12:46 WBC 6.88 (4.8-10.8) K/ul RBC 3.23 L (3.93-5.22) M/uL Hgb 9.3 L (12.0-16.0) g/dl Hct 28.6 L (34.1-44.9) % Plt Count 299 (130-400) K/uL Neut # (Auto) 4.82 (1.4-6.5) K/uL Lymph # (Auto) 0.92 L (1.2-3.4) K/uL Mccracken # (Auto) 0.86 H (0.24-0.82) K/uL Eos # (Auto) 0.21 (0-0.50) K/uL Baso # (Auto) 0.04 (0-0.2) K/uL Comprehensive Metabolic Panel 12/03/21 Range/Units 12:46 Sodium 136 (136-145) mmol/L Potassium 3.7 (3.5-5.1) mmol/L Chloride 101 (98-107) mmol/L Carbon Dioxide 26 (21-32) mmol/L BUN 44 H (6-23) mg/dl Creatinine 1.77 H (0.6-1.2) mg/dl Glucose 114 H (70-99(Fasting)) mg/dl Calcium 8.6 (8.5-10.1) mg/dl AST 17 (13-39) U/L ALT 22 (7-52) U/L Alkaline Phosphatase 61 (34-104) U/L Total Protein 6.3 (6.0-8.3) gm/dl Albumin 3.7 (3.4-5.0) gm/dl Intake and Output 12/03/21 12/03/21 12/03/21 06:59 14:59 22:59 Intake Total 100 / 100 Balance 100 / 100 Intake: IV 100 / 100 Acetaminophen 1,000 mg In 100 100 / 100 ml @ 400 mls/hr IV NOW STA Rx#: [id number] Other: Weight 75.3 kg Patient Weight 12/04/21 06:59 Weight 75.3 kg Diagnostic Findings EKG performed today 12/03/2021 and interpreted independently: Atrial fibrillation 89 bpm, age-indeterminate septal infarction. No previous tracings available for comparison. Chest x-ray performed today: Summary of radiology report, also image reviewed independently, no cardiac silhouette, mild pulmonary vascular congestion, trace pleural effusions
[2021-12-03] MEDS ORDERED: PROMETHAZINE HCL 6.25 MG in SODIUM CHLORIDE 0.9% 50 ML IV PRN (16:24)
[2021-12-03] MEDS ORDERED: POLYETHYLENE (MIRALAX) 17 GM PACK PO PRN (16:24)
[2021-12-03] MEDS ORDERED: ALUMINUM/MAGNESIUM SUSP 30 ML UDC PO PRN (16:24)
[2021-12-03] MEDS ORDERED: AMIODARONE / D5W 150 MG/100 ML BAG IV STA (16:51)
[2021-12-03] MEDS ORDERED: 0.2 MICRON FILTER SET 1 EACH IV STA (16:51)
[2021-12-03] MEDS ORDERED: STAT IV Infusion **Titration per Protocol STA (16:51)
[2021-12-03] MEDS ORDERED: AMIODARONE IV BOLUS & DRIP IV STA (16:51)
[2021-12-03] MEDS ORDERED: AMIODARONE / D5W 360 MG/200 ML BAG IV ONE (17:00)
--- NOTE | 2021-12-03 17:10 | Communication Note ---
Date of Service: December 03, 2021 Discussed with pharmacy Given pt eGFR recommended gabapentin dose is 200-700mg per day pt currently on 400mg QID will reduce dose for 400mg bid, if egfr persists, consider further reduction to daily. Eva Garcia PA-C
[2021-12-03] MEDS: carvediloL 12.5 MG TAB PO SCH (17:18)
[2021-12-03] MEDS: hydrALAZINE TAB 50 MG TAB PO SCH (20:33)
[2021-12-03] MEDS: ACETAMINOPHEN W/CODEINE #3 1 TAB PO PRN (20:33)
[2021-12-03] MEDS: ZOLPIDEM TARTRATE 5 MG TAB PO SCH (20:33)
[2021-12-03] MEDS: GABAPENTIN 400 MG CAP PO SCH (20:34)
[2021-12-03] MEDS: APIXABAN 2.5 MG TAB PO SCH (20:34)
[2021-12-03] MEDS ORDERED: rOPINIRole HCL 0.25 MG TABLET PO SCH (21:00)
[2021-12-03] MEDS: AMIODARONE / D5W 360 MG/200 ML BAG IV SCH (23:06)
[2021-12-04 08:13] LABS: Basophils # (auto) 0.04 K/uL (0-0.2); Basophils % (auto) 0.6 %; Eosinophils # (auto) 0.17 K/uL (0-0.50); Eosinophils % (auto) 2.4 %; Hematocrit (blood only) 27.3 % (34.1-44.9); Hemoglobin 8.9 g/dl (12.0-16.0); Immature Granulocytes # (auto) 0.02 K/uL (0.00-0.02); Immature Granulocytes % (auto) 0.3 %; Lymphocytes # (auto) 0.91 K/uL (1.2-3.4); Lymphocytes % (auto) 12.6 %; Mean Corpuscular Hemoglobin 28.1 pg (25.0-34.0); Mean Corpuscular Hgb Conc 32.6 g/dL (32.0-36.0); Mean Corpuscular Volume 86.1 fL (80.0-100.0); Mean Platelet Volume 10.6 fL (9.4-12.3); Monocytes # (auto) 0.99 K/uL (0.24-0.82); Monocytes % (auto) 13.7 %; Neutrophils # (auto) 5.09 K/uL (1.4-6.5); Neutrophils % (auto) 70.4 %; Platelet Count 304 K/uL (130-400); RDW Coefficient of Variation 14.2 % (11.5-14.5); Red Blood Count 3.17 M/uL (3.93-5.22); White Blood Count 7.22 K/ul (4.8-10.8)
[2021-12-04 08:39] LABS: BUN Creatinine Ratio 23.4 (10-20); Calcium 8.4 mg/dl (8.5-10.1); Creatinine Clr Calc Pharmacy 26.7 ml/min; Est GFR (African American) 35.2 ml/min; Est GFR (Non-African American) 30.4 ml/min; Potassium 3.8 mmol/L (3.5-5.1)
[2021-12-04 08:45] LABS: Estimated Average Glucose 131 mg/dl; Hemoglobin A1C 6.2 % (4.5-5.6)
[2021-12-04 08:56] LABS: Ferritin 39.3 ng/ml (8-388)
[2021-12-04] MEDS ORDERED: AMIODARONE 200 MG TAB PO SCH (09:00)
[2021-12-04 09:01] LABS: Folate (Folic Acid) 20.39 ng/ml (>5.38)
[2021-12-04] MEDS: carvediloL 12.5 MG TAB PO SCH ×2 (10:02→17:33)
[2021-12-04] MEDS: MULTIVITAMIN TAB PO SCH (10:03)
[2021-12-04] MEDS: dilTIAZem HCL 240 MG CAPCR PO SCH (10:03)
[2021-12-04] MEDS: CALCIUM 600MG + VIT D 400 IU TAB PO SCH (10:03)
[2021-12-04] MEDS: APIXABAN 2.5 MG TAB PO SCH ×2 (10:03→21:32)
[2021-12-04] MEDS: GABAPENTIN 400 MG CAP PO SCH ×2 (10:04→21:32)
[2021-12-04] MEDS: FUROSEMIDE 40 MG/4 ML VIAL IV SCH (10:04)
[2021-12-04] MEDS: hydrALAZINE TAB 50 MG TAB PO SCH ×3 (10:05→21:31)
[2021-12-04] MEDS: ADVANCED PROBIOTIC 1250 MG CAPSULE PO SCH (10:06)
[2021-12-04] MEDS: POTASSIUM CHLORIDE CRTAB 20 MEQ TABCR PO SCH (10:06)
[2021-12-04] MEDS: PANTOprazole 40 MG TAB PO SCH (10:06)
[2021-12-04] MEDS: ACETAMINOPHEN 325 MG TAB PO PRN (10:32)
[2021-12-04] MEDS: AMIODARONE / D5W 360 MG/200 ML BAG IV SCH ×2 (11:16→23:02)
[2021-12-04] MEDS: ACETAMINOPHEN W/CODEINE #3 1 TAB PO PRN ×2 (11:33→17:33)
--- NOTE | 2021-12-04 15:12 | XRay Report ---
XR hip LT 2V w pelvis CLINICAL HISTORY: hip pain TECHNIQUE: 2 views of the left hip and single frontal view of the pelvis were obtained. Comparison: None available at the time of this dictation. FINDINGS: There is no evidence of an acute fracture. 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 No soft tissue abnormality is seen. IMPRESSION: No evidence of acute osseous injury. Satisfactory appearance of bilateral hip arthroplasties. ACT 112: Negative or not required by law. Electronically signed by: Grant Galindo M.D. 12/04/2021 3:11 PM
[2021-12-04] MEDS: ROTIGOTINE 1 MG/24 HR TD SCH (15:47)
--- NOTE | 2021-12-04 17:03 | Hospitalist Progress Note ---
Date of Service December 04, 2021 Assessment & Plan (1) Hypoxia: Plan: - admit to tele - pt saturating 91% RA, but dyspneic with conversation, was placed on 2L - obtain echocardiogram - normal EF, in afib - consult cardiology - received 40mg IV lasix in ED, also took her home dose of 40mg oral lasix. Monitor output - continue with Lasix 40mg IV daily, + KCL - daily weights, low sodium, heart healthy diet - CHF likely playing role; however degree of dyspnea appears out of proportion to degree of CHF - other possibilities are PE (however, pt anticoagulated on eliquis and given cr would not perform CTA as will not global director air and climate change), intolerance to current jay b, anemia, pulmonary etiology - CHF and afib most likely - hold home lasix - obtain records from [employer] Dr. Hu [place] as well as PCP GABBI Corral - improving - Cardiolgy recs appreciated (2) CHF (congestive heart failure): Plan: - see above (3) Atrial fibrillation: Plan: - rate controlled - on diltiazem, amiodarone and eliquis - pt states normally she is in NSR - continue home meds but Cardiology started on amio drip - converted to NSR on amio - follow up cards for further recs (4) HTN (hypertension): Plan: - bp controlled in ED - continue coreg, hydralazine, diltiazem (5) CKD (chronic kidney disease): Plan: - baseline cr 1.6-1.8 per PCP office - bun/cr 44 and 1.77 - obtaining records from PCP - per pt, she is scheduled to see nephro on 12/16 to establish care - monitor renal fxn given diuresis (6) Anemia: Plan Celiac Disease/Dermatitis herpetiformis dapsone prn, GF diet Chronic back/L hip pain previous L hip replacement, XR ordered pt states she follows ortho in [place], they feel it is likely bursitis PT/OT when able on apap-codeine prn, gabapentin RLS continue require and neupro patch DVT ppx: Eliquis Dispo: PCU, Pt lives alone in [place], [place] in 1st floor setup with 2 steps to enter, typically independent of adls/iadls, here visiting in [place] with Daughter in law FULL CODE - discussed with patient at bedside PCP: GABBI Corral [place], [place] Admission and Anticipated Discharge Date Admission Date: December 03, 2021 Subjective Patient with Afib on AC, CHF, chronic pain, h/o right breast CA s/p lumpectomy and radiation, RLS, neuropathy, MVP, GERD, CKD who presented for shortness of breath, found to be in CHF exacerbation and afib. Started on amiodarone drip and IV lasix per Cardiology with improvement. Amio being managed by Cardiology. Patient reports improvement in her respiratory symptoms. Denies chest pain, cough, n/v/d, light headedness. Review of Systems Review of Systems: All systems reviewed & are unremarkable except as noted in Subjective Physical Exam Physical Exam: Constitutional: WD/WN, Elderly F, vitals as above, tachypneic with conversation, NAD, sitting up in bed, pleasant Head: Normocephalic, Atraumatic Eyes: PERRL, conjunctivae normal, anicteric sclerae ENMT: external ear and nose normal, oropharynx normal Neck: trachea midline, no thyromegaly normal visual inspection Respiratory: increased respiratory effort, no tachypnea, lungs clear to auscultation, no wheeze, rales, rhonchi. Normal insp/exp effort, no accessory muscle use Cardiovascular: regular rate, Irregular rhythm, no murmur appreciated, no LE edema Vessels: no JVD or carotid bruit Chest: normal inspection of chest Abdomen: normal bowel sounds, soft, nontender, no hepatosplenomegaly Musculoskeletal: no cyanosis or clubbing, AROM x 4 Skin: no rashes, warm and dry normal turgor Neurologic: PERRL, EOMI, accommodation nl, no face palsy, no dysarthria CN's II-XI intact bilaterally and moves all extremities Psychiatric: A+Ox3, euthymic affect Lymphatic: no cervical or axillary lymphadenopath Results & Data Results & Data ([facility]) Vital Signs (Past 12 Hours) Vital Signs Temp Pulse Resp BP Pulse Ox O2 Del Method O2 Flow Rate 12/04/21 15:42 36.6 C 66 22 123/65 92 Nasal Cannula 2 12/04/21 08:15 Nasal Cannula 2 12/04/21 11:44 36.7 C 87 20 106/62 95 Nasal Cannula 2 12/04/21 07:51 37.1 C 109 H 19 116/63 92 Nasal Cannula 2 Laboratory Results Short CBC 12/04/21 Range/Units 07:43 WBC 7.22 (4.8-10.8) K/ul Hgb 8.9 L (12.0-16.0) g/dl Hct 27.3 L (34.1-44.9) % Plt Count 304 (130-400) K/uL BMP 12/04/21 07:43 Sodium 134 L Potassium 3.8 Chloride 100 Carbon Dioxide 26 BUN 37 H Creatinine 1.58 H Glucose 105 H Calcium 8.4 L Medications Administered Current Inpatient Medications Acetaminophen (Acetaminophen 325 Mg Tab) 650 mg PO Q4H PRN PRN Reason: Pain or Fever Stop: 01/02/22 16:23 Last Admin: 12/04/21 10:32 Dose: 650 mg Acetaminophen/Codeine Phosphate (Acetaminophen W/Codeine #3 1 Tab) 1 tab PO Q6H PRN PRN Reason: Pain Stop: 01/02/22 16:23 Last Admin: 12/04/21 11:33 Dose: 1 tab Al Hydrox/Mg Hydrox/Simethicone (Aluminum/Magnesium Susp 30 Ml Udc) 15 ml PO Q4H PRN PRN Reason: Dyspepsia Stop: 01/02/22 16:23 Apixaban (Apixaban 2.5 Mg Tab) 2.5 mg PO BID [facility] Stop: 01/02/22 20:59 Last Admin: 12/04/21 10:03 Dose: 2.5 mg Carvedilol (Carvedilol 12.5 Mg Tab) 12.5 mg PO BIDM [facility] Stop: 01/02/22 16:59 Last Admin: 12/04/21 10:02 Dose: 12.5 mg Diltiazem HCl (Diltiazem Hcl 240 Mg Capcr) 240 mg PO DAILY [facility] Stop: 01/03/22 08:59 Last Admin: 12/04/21 10:03 Dose: 240 mg Furosemide (Furosemide 40 Mg/4 Ml Vial) 40 mg IV DAILY [facility] Stop: 01/03/22 08:59 Last Admin: 12/04/21 10:04 Dose: 40 mg Gabapentin (Gabapentin 400 Mg Cap) 400 mg PO BID [facility]; Protocol Stop: 01/02/22 20:59 Last Admin: 12/04/21 10:04 Dose: 400 mg Hydralazine HCl (Hydralazine Tab 50 Mg Tab) 50 mg PO TID [facility] Stop: 01/02/22 20:59 Last Admin: 12/04/21 13:37 Dose: 50 mg Promethazine HCl 6.25 mg/ (Sodium Chloride) 50.25 mls @ 201 mls/hr IV Q6H PRN PRN Reason: Nausea And Vomiting Stop: 01/02/22 16:23 Last Infusion: 12/04/21 10:48 Dose: Infused Amiodarone HCl/Dextrose (Nexterone / D5w) 360 mg in 200 mls @ 16.667 mls/hr IV .Q12H [facility] Stop: 01/02/22 22:59 Last Admin: 12/04/21 11:16 Dose: 0.5 mg/min, 16.7 mls/hr Lactobacillus Acidophilus (Advanced Probiotic 1250 Mg Capsule) 2 cap PO DAILY [facility] Stop: 01/03/22 08:59 Last Admin: 12/04/21 10:06 Dose: 2 cap Multivitamins (Multivitamin Tab) 2 tab PO DAILY [facility] Stop: 01/03/22 08:59 Last Admin: 12/04/21 10:03 Dose: 2 tab Multivitamins/Minerals (Calcium 600mg + Vit D 400 Iu Tab) 1 tab PO DAILY [facility] Stop: 01/03/22 08:59 Last Admin: 12/04/21 10:03 Dose: 1 tab Pantoprazole Sodium (Pantoprazole 40 Mg Tab) 40 mg PO DAILY [facility]; Protocol Stop: 01/03/22 08:59 Last Admin: 12/04/21 10:06 Dose: 40 mg Polyethylene Glycol (Polyethylene (Miralax) 17 Gm Pack) 17 gm PO DAILY PRN PRN Reason: Constipation Stop: 01/02/22 16:23 Potassium Chloride (Potassium Chloride Crtab 20 Meq Tabcr) 20 meq PO QAM [facility] Stop: 01/03/22 08:59 Last Admin: 12/04/21 10:06 Dose: 20 meq Ropinirole HCl (Ropinirole Hcl 0.25 Mg Tablet) 0.25 mg PO BID [facility] Stop: 01/03/22 20:59 Rotigotine (Rotigotine Patch 1 Mg/24 Hours *Patients Own Med*) 1 patch TD QD [facility] Stop: 01/03/22 14:59 Last Admin: 12/04/21 15:47 Dose: 1 patch Zolpidem Tartrate (Zolpidem Tartrate 5 Mg Tab) 5 mg PO HS [facility] Stop: 01/02/22 20:59 Last Admin: 12/03/21 20:33 Dose: 5 mg (1) CHF (congestive heart failure) Heart failure type: diastolic Heart failure chronicity: acute Qualified Code(s): I50.31 - Acute diastolic (congestive) heart failure (2) Atrial fibrillation Atrial fibrillation type: unspecified chronic Qualified Code(s): I48.20 - Ch ronic atrial fibrillation, unspecified (3) HTN (hypertension) Hypertension type: unspecified Qualified Code(s): I10 - Essential (primary) hypertension
--- NOTE | 2021-12-04 19:14 | Cardiology Progress Note ---
Date of Service December 04, 2021 Assessment & Plan (1) Acute on chronic heart failure with preserved ejection fraction (HFpEF): Plan: * Continue furosemide 40 mg daily. (2) Atrial fibrillation: Plan: * As noted, patient believes she has been on oral amiodarone for at least 6 years. No recent cardioversions but feels that perhaps this had occurred in the remote past. * Will continue IV amiodarone (reload) * Continue Eliquis for stroke prophylaxis Admission and Anticipated Discharge Date Admission Date: December 03, 2021 Subjective Patient seen in cardiology follow-up. Please her breathing has improved. Lower extremity edema improved on exam. She is currently sitting in bedside chair, she is experiencing an intermittent pain that she has in her left groin she has this pain at home and it typically improves with Tylenol and lying supine on her couch. An x-ray had been performed earlier today with stable appearance of bilateral hip arthroplasties per review of radiology report. Telemetry reviewed, patient had been in atrial fibrillation in the 90s first thing this morning. Overnight, she had converted to sinus rhythm from 2359 until just after 2 AM, but reverted back to atrial fibrillation. Upon follow-up later this afternoon, sinus rhythm in the 80s to 90s noted, with baseline artifact. Patient remains on amiodarone infusion. Review of Systems Review of Systems: All systems reviewed & are unremarkable except as noted in HPI & below Physical Exam Constitutional: WD/WN, vitals as above Neck: trachea midline Respiratory: Auscultation: + diminished lung sounds (Mildly reduced breath sounds the bases) Cardiovascular: Rate/Rhythm: + tachycardic and + irregularly irregular Heart Sounds: no murmur Extremities: + edema (Trace to 1+ lower extremity edema) Neurologic: PERRL, EOMI, accommodation nl, no face palsy, no dysarthria Results & Data ([facility]) Vital Signs (Past 12 Hours) Vital Signs Temp Pulse Pulse Resp BP Pulse Ox O2 Del Method 12/04/21 14:57 64 12/04/21 15:42 36.6 C 66 22 123/65 92 Nasal Cannula 12/04/21 08:15 Nasal Cannula 12/04/21 11:44 36.7 C 87 20 106/62 95 Nasal Cannula 12/04/21 07:51 37.1 C 109 H 19 116/63 92 Nasal Cannula O2 Flow Rate 12/04/21 14:57 12/04/21 15:42 2 12/04/21 08:15 2 12/04/21 11:44 2 12/04/21 07:51 2 Laboratory Results Creatinine 1.58, improved compared to 1.77 TSH performed 12/03/2021 was within normal limits 1.333, microunits units per liter Liver function test within normal limits Chest x-ray on admission revealed pulmonary vascular congestion, trace pleural effusions. (1) Atrial fibrillation Atrial fibrillation type: unspecified chronic Qualified Code(s): I48.20 - Chronic atrial fibrillation, unspecified
[2021-12-04] MEDS: rOPINIRole HCL 0.25 MG TABLET PO SCH (21:31)
[2021-12-04] MEDS: ZOLPIDEM TARTRATE 5 MG TAB PO SCH (21:33)
--- NOTE | 2021-12-05 08:11 | Hospitalist Progress Note ---
Date of Service December 05, 2021 Assessment & Plan (1) Hypoxia: Plan: - admit to tele - pt saturating 91% RA, but dyspneic with conversation, was placed on 2L - obtain echocardiogram - normal EF, in afib - consult cardiology - received 40mg IV lasix in ED, also took her home dose of 40mg oral lasix. Monitor output - continue with Lasix 40mg IV daily, + KCL - daily weights, low sodium, heart healthy diet - CHF likely playing role; however degree of dyspnea appears out of proportion to degree of CHF - other possibilities are PE (however, pt anticoagulated on eliquis and given cr would not perform CTA as will not car changer), intolerance to current jay b, anemia, pulmonary etiology - CHF and afib most likely - intermittently reverts to NSR then back to afib, was in afib this morning - continues on lasix and amio drip per Cardiology - obtain records from [employer] Dr. Hu [place] as well as PCP GABBI Corral - improving - Cardiolgy recs appreciated (2) CHF (congestive heart failure): Plan: - see above (3) Atrial fibrillation: Plan: - rate controlled - on diltiazem, amiodarone and eliquis - pt states normally she is in NSR - continue home meds but Cardiology started on amio drip - converted to NSR on amio but reverts back to afib ultimately - continues on amio drip - follow up cards for further recs (4) HTN (hypertension): Plan: - bp controlled in ED - continue coreg, hydralazine, diltiazem (5) CKD (chronic kidney disease): Plan: - baseline cr 1.6-1.8 per PCP office - initially thought to possibly be Acute kidney injury but likely just baseline CKD - bun/cr 44 and 1.77 - obtaining records from PCP - per pt, she is scheduled to see nephro on 12/16 to establish care - monitor renal fxn given diuresis (6) Anemia: Plan: - stable, no signs of bleeding - monitor for now Plan Celiac Disease/Dermatitis herpetiformis dapsone prn, GF diet Chronic back/L hip pain previous L hip replacement, XR ordered pt states she follows ortho in [place], they feel it is likely bursitis PT/OT when able on apap-codeine prn, gabapentin - x-ray without pathology or abnormality in hip arthroplasties RLS continue require and neupro patch DVT ppx: Missy Dispo: PCU, Pt lives alone in [place], [place] in 1st floor setup with 2 steps to enter, typically independent of adls/iadls, here visiting in [place] with Daughter in law FULL CODE - discussed with patient at bedside PCP: Sonal Bender, GABBI [place], [place] Admission and Anticipated Discharge Date Admission Date: December 04, 2021 Subjective Patient with Afib on AC, CHF, chronic pain, h/o right breast CA s/p lumpectomy and radiation, RLS, neuropathy, MVP, GERD, CKD who presented for shortness of breath, found to be in CHF exacerbation and afib. Started on amiodarone drip and IV lasix per Cardiology with improvement. Amio being managed by Cardiology. Patient reports improvement in her respiratory symptoms. Denies chest pain, cough, n/v/d, light headedness. Review of Systems Review of Systems: All systems reviewed & are unremarkable except as noted in Subjective Physical Exam Physical Exam: Constitutional: WD/WN, Elderly F, vitals as above, tachypneic with conversation, NAD, sitting up in bed, pleasant Head: Normocephalic, Atraumatic Eyes: PERRL, conjunctivae normal, anicteric sclerae ENMT: external ear and nose normal, oropharynx normal Neck: trachea midline, no thyromegaly normal visual inspection Respiratory: increased respiratory effort, no tachypnea, lungs clear to auscultation in upper cruz, some crackles in lower cruz, no wheeze, rales, rhonchi. Normal insp/exp effort, no accessory muscle use Cardiovascular: regular rate, Irregular rhythm, no murmur appreciated, no LE edema Vessels: no JVD or carotid bruit Chest: normal inspection of chest Abdomen: normal bowel sounds, soft, nontender, no hepatosplenomegaly Musculoskeletal: no cyanosis or clubbing, AROM x 4 Skin: no rashes, warm and dry normal turgor Neurologic: PERRL, EOMI, accommodation nl, no face palsy, no dysarthria CN's II-XI intact bilaterally and moves all extremities Psychiatric: A+Ox3, euthymic affect Lymphatic: no cervical or axillary lymphadenopath Results & Data Results & Data ([facility]) Vital Signs (Past 12 Hours) Vital Signs Temp Pulse Resp BP Pulse Ox O2 Del Method O2 Flow Rate 12/05/21 07:07 36.7 C 85 18 107/65 96 Nasal CPAP 12/05/21 02:52 36.6 C 79 18 105/62 96 Nasal CPAP 12/04/21 23:15 36.5 C 69 18 104/56 L 94 Nasal CPAP 12/04/21 22:42 Nasal Cannula 2 Laboratory Results Short CBC 12/05/21 Range/Units 09:05 WBC 7.48 (4.8-10.8) K/ul Hgb 9.2 L (12.0-16.0) g/dl Hct 27.9 L (34.1-44.9) % Plt Count 336 (130-400) K/uL BMP 12/05/21 09:05 Sodium 130 L Potassium 4.0 Chloride 95 L Carbon Dioxide 25 BUN 36 H Creatinine 1.83 H Glucose 173 H Calcium 8.6 Diagnostic Findings reviewed Medications Administered Current Inpatient Medications Acetaminophen (Acetaminophen 325 Mg Tab) 650 mg PO Q4H PRN PRN Reason: Pain or Fever Stop: 01/02/22 16:23 Last Admin: 12/04/21 10:32 Dose: 650 mg Acetaminophen/Codeine Phosphate (Acetaminophen W/Codeine #3 1 Tab) 1 tab PO Q6H PRN PRN Reason: Pain Stop: 01/02/22 16:23 Last Admin: 12/04/21 17:33 Dose: 1 tab Al Hydrox/Mg Hydrox/Simethicone (Aluminum/Magnesium Susp 30 Ml Udc) 15 ml PO Q4H PRN PRN Reason: Dyspepsia Stop: 01/02/22 16:23 Apixaban (Apixaban 2.5 Mg Tab) 2.5 mg PO BID [facility] Stop: 01/02/22 20:59 Last Admin: 12/05/21 08:32 Dose: 2.5 mg Carvedilol (Carvedilol 12.5 Mg Tab) 12.5 mg PO BIDM [facility] Stop: 01/02/22 16:59 Last Admin: 12/05/21 08:34 Dose: 12.5 mg Diltiazem HCl (Diltiazem Hcl 240 Mg Capcr) 240 mg PO DAILY [facility] Stop: 01/03/22 08:59 Last Admin: 12/05/21 08:33 Dose: 240 mg Furosemide (Furosemide 40 Mg/4 Ml Vial) 40 mg IV DAILY [facility] Stop: 01/03/22 08:59 Last Admin: 12/05/21 08:32 Dose: 40 mg Gabapentin (Gabapentin 400 Mg Cap) 400 mg PO BID [facility]; Protocol Stop: 01/02/22 20:59 Last Admin: 12/05/21 08:32 Dose: 400 mg Hydralazine HCl (Hydralazine Tab 50 Mg Tab) 50 mg PO TID [facility] Stop: 01/02/22 20:59 Last Admin: 12/05/21 08:32 Dose: 50 mg Promethazine HCl 6.25 mg/ (Sodium Chloride) 50.25 mls @ 201 mls/hr IV Q6H PRN PRN Reason: Nausea And Vomiting Stop: 01/02/22 16:23 Last Infusion: 12/04/21 10:48 Dose: Infused Amiodarone HCl/Dextrose (Nexterone / D5w) 360 mg in 200 mls @ 16.667 mls/hr IV .Q12H [facility] Stop: 01/02/22 22:59 Last Admin: 12/05/21 11:48 Dose: 0.5 mg/min, 16.7 mls/hr Lactobacillus Acidophilus (Advanced Probiotic 1250 Mg Capsule) 2 cap PO DAILY [facility] Stop: 01/03/22 08:59 Last Admin: 12/05/21 08:33 Dose: 2 cap Multivitamins (Multivitamin Tab) 2 tab PO DAILY [facility] Stop: 01/03/22 08:59 Last Admin: 12/05/21 08:33 Dose: 2 tab Multivitamins/Minerals (Calcium 600mg + Vit D 400 Iu Tab) 1 tab PO DAILY [facility] Stop: 01/03/22 08:59 Last Admin: 12/05/21 09:50 Dose: 1 tab Pantoprazole Sodium (Pantoprazole 40 Mg Tab) 40 mg PO DAILY [facility]; Protocol Stop: 01/03/22 08:59 Last Admin: 12/05/21 08:33 Dose: 40 mg Polyethylene Glycol (Polyethylene (Miralax) 17 Gm Pack) 17 gm PO DAILY PRN PRN Reason: Constipation Stop: 01/02/22 16:23 Potassium Chloride (Potassium Chloride Crtab 20 Meq Tabcr) 20 meq PO QAM [facility] Stop: 01/03/22 08:59 Last Admin: 12/05/21 08:33 Dose: 20 meq Ropinirole HCl (Ropinirole Hcl 0.25 Mg Tablet) 0.25 mg PO BID [facility] Stop: 01/03/22 20:59 Last Admin: 12/05/21 08:33 Dose: 0.25 mg Rotigotine (Rotigotine Patch 1 Mg/24 Hours *Patients Own Med*) 1 patch TD QD [facility] Stop: 01/03/22 14:59 Last Admin: 12/04/21 15:47 Dose: 1 patch Zolpidem Tartrate (Zolpidem Tartrate 5 Mg Tab) 5 mg PO HS [facility] Stop: 01/02/22 20:59 Last Admin: 12/04/21 21:33 Dose: 5 mg (1) CHF (congestive heart failure) Heart failure chronicity: acute Heart failure type: diastolic Qualified Code(s): I50.31 - Acute diastolic (congestive) heart failure (2) Atrial fibrillation Atrial fibrillation type: unspecified chronic Qualified Code(s): I48.20 - Chronic atrial fibrillation, unspecified (3) HTN (hypertension) Hypertension type: unspecified Qualified Code(s): I10 - Essential (primary) hypertension
[2021-12-05] MEDS: APIXABAN 2.5 MG TAB PO SCH ×2 (08:32→20:21)
[2021-12-05] MEDS: hydrALAZINE TAB 50 MG TAB PO SCH ×3 (08:32→20:30)
[2021-12-05] MEDS: FUROSEMIDE 40 MG/4 ML VIAL IV SCH (08:32)
[2021-12-05] MEDS: GABAPENTIN 400 MG CAP PO SCH ×2 (08:32→20:22)
[2021-12-05] MEDS: MULTIVITAMIN TAB PO SCH (08:33)
[2021-12-05] MEDS: POTASSIUM CHLORIDE CRTAB 20 MEQ TABCR PO SCH (08:33)
[2021-12-05] MEDS: rOPINIRole HCL 0.25 MG TABLET PO SCH ×2 (08:33→20:22)
[2021-12-05] MEDS: dilTIAZem HCL 240 MG CAPCR PO SCH (08:33)
[2021-12-05] MEDS: PANTOprazole 40 MG TAB PO SCH (08:33)
[2021-12-05] MEDS: ADVANCED PROBIOTIC 1250 MG CAPSULE PO SCH (08:33)
[2021-12-05] MEDS: carvediloL 12.5 MG TAB PO SCH ×2 (08:34→16:03)
[2021-12-05 09:21] LABS: Basophils # (auto) 0.04 K/uL (0-0.2); Basophils % (auto) 0.5 %; Eosinophils % (auto) 2.7 %; Hematocrit (blood only) 27.9 % (34.1-44.9); Hemoglobin 9.2 g/dl (12.0-16.0); Immature Granulocytes # (auto) 0.02 K/uL (0.00-0.02); Immature Granulocytes % (auto) 0.3 %; Lymphocytes # (auto) 0.68 K/uL (1.2-3.4); Lymphocytes % (auto) 9.1 %; Mean Corpuscular Hemoglobin 28.6 pg (25.0-34.0); Mean Corpuscular Volume 86.6 fL (80.0-100.0); Mean Platelet Volume 10.4 fL (9.4-12.3); Monocytes # (auto) 0.74 K/uL (0.24-0.82); Monocytes % (auto) 9.9 %; Neutrophils % (auto) 77.5 %; Platelet Count 336 K/uL (130-400); RDW Coefficient of Variation 14.3 % (11.5-14.5); RDW Standard Deviation 45.5 fL (36.4-46.3); Red Blood Count 3.22 M/uL (3.93-5.22); White Blood Count 7.48 K/ul (4.8-10.8)
[2021-12-05] MEDS: CALCIUM 600MG + VIT D 400 IU TAB PO SCH (09:50)
[2021-12-05 09:58] LABS: BUN Creatinine Ratio 19.7 (10-20); Calcium 8.6 mg/dl (8.5-10.1); Est GFR (African American) 29.5 ml/min; Est GFR (Non-African American) 25.4 ml/min; Phosphorus 3.4 mg/dl (2.5-4.9)
[2021-12-05] MEDS: AMIODARONE / D5W 360 MG/200 ML BAG IV SCH ×2 (11:48→23:31)
[2021-12-05] MEDS: ROTIGOTINE 1 MG/24 HR TD SCH (13:39)
[2021-12-05] MEDS ORDERED: FUROSEMIDE INJ 20 MG/2 ML VIAL IV ONE (13:59)
--- NOTE | 2021-12-05 14:09 | Cardiology Progress Note ---
Date of Service December 05, 2021 Assessment & Plan (1) Acute on chronic heart failure with preserved ejection fraction (HFpEF): Plan: * Patient received 40 mg IV furosemide this morning, will proceed with second dose of 20 mg this afternoon * Discontinue Gonzalez catheter 12/05/2021, 1800 (2) Atrial fibrillation: Plan: * Continue ongoing reload of amiodarone intravenously * Proceed with direct-current cardioversion, 12/06 * Continue Eliquis for stroke prophylaxis * Plan on holding diltiazem and carvedilol tomorrow morning in advance of cardioversion Admission and Anticipated Discharge Date Admission Date: December 04, 2021 Subjective Patient seen in follow-up of shortness of breath, lower extremity edema. Edema has improved. She has a Gonzalez catheter in place and has not been walking much. The left groin pain noted yesterday has resolved. She remains on 2 L nasal cannula with most recent pulse oximetry in the low 90s. Telemetry reveals rate controlled atrial fibrillation in the 90 bpm range. Physical Exam 2 Constitutional: WD/WN, vitals as above Neck: trachea midline Respiratory: Auscultation: + diminished lung sounds (Mildly reduced breath sounds the bases) Cardiovascular: Rate/Rhythm: + tachycardic and + irregularly irregular Heart Sounds: no murmur Extremities: + edema (Trace to 1+ lower extremity edema) Neurologic: PERRL, EOMI, accommodation nl, no face palsy, no dysarthria Results & Data ([facility]) Vital Signs (Past 12 Hours) Vital Signs Temp Pulse Resp BP Pulse Ox O2 Del Method O2 Flow Rate 12/05/21 08:00 20 92 Nasal Cannula 2 12/05/21 08:00 Nasal Cannula 2 12/05/21 10:58 37.0 C 96 H 18 120/68 91 Nasal Cannula 2 12/05/21 07:07 36.7 C 85 18 107/65 96 Nasal CPAP 12/05/21 02:52 36.6 C 79 18 105/62 96 Nasal CPAP Laboratory Results CBC 12/05/21 Range/Units 09:05 WBC 7.48 (4.8-10.8) K/ul RBC 3.22 L (3.93-5.22) M/uL Hgb 9.2 L (12.0-16.0) g/dl Hct 27.9 L (34.1-44.9) % Plt Count 336 (130-400) K/uL Neut # (Auto) 5.80 (1.4-6.5) K/uL Lymph # (Auto) 0.68 L (1.2-3.4) K/uL Luce # (Auto) 0.74 (0.24-0.82) K/uL Eos # (Auto) 0.20 (0-0.50) K/uL Baso # (Auto) 0.04 (0-0.2) K/uL Comprehensive Metabolic Panel 12/05/21 Range/Units 09:05 Sodium 130 L (136-145) mmol/L Potassium 4.0 (3.5-5.1) mmol/L Chloride 95 L (98-107) mmol/L Carbon Dioxide 25 (21-32) mmol/L BUN 36 H (6-23) mg/dl Creatinine 1.83 H (0.6-1.2) mg/dl Glucose 173 H (70-99(Fasting)) mg/dl Calcium 8.6 (8.5-10.1) mg/dl Intake and Output 12/04/21 12/05/21 12/05/21 22:59 06:59 14:59 Intake Total 510 / 1736.753 296.503 / 1736.753 450 / 450 Output Total 250 / 900 250 / 900 400 / 400 Balance 260 / 836.753 46.503 / 836.753 50 / 50 Intake: IV 196.503 / 446.753 200 / 200 Amiodarone / D5w 360 mg In 200 196.503 / 396.503 200 / 200 ml @ 0.5 MG/MIN 16.667 mls/hr IV .Q12H [facility] Rx#:[id number] Oral 510 / 1290 100 / 1290 250 / 250 Output: Urine Amount (Catheter) 250 / 900 250 / 900 400 / 400 Gonzalez/Indwelling 250 / 900 250 / 900 400 / 400 Other: Weight 76 kg (1) Atrial fibrillation Atrial fibrillation type: unspecified chronic Qualified Code(s): I48.20 - Chronic atrial fibrillation, unspecified
--- NOTE | 2021-12-05 14:10 | Communication Note ---
Date of Service: December 05, 2021 Discussed updates with patient's son, Todd, per her request. Discussed rationale, benefits/risks of cardioversion in detail.
[2021-12-05] MEDS: ACETAMINOPHEN W/CODEINE #3 1 TAB PO PRN (16:52)
[2021-12-05] MEDS: ZOLPIDEM TARTRATE 5 MG TAB PO SCH (20:21)
--- NOTE | 2021-12-06 05:34 | Electrocardiogram Report ---
Test Reason : Blood Pressure : / mmHG Vent. Rate : 093 BPM Atrial Rate : 250 BPM P-R Int : 000 ms QRS Dur : 084 ms QT Int : 392 ms P-R-T Axes : 106 052 074 degrees QTc Int : 488 ms Atrial fibrillation Low voltage QRS Prolonged QT Abnormal ECG When compared with ECG of 03-DEC-2021 12:35, No significant change Confirmed by Oleg Scales ([id number]) on 12/06/2021 5:33:27 AM Referred By: REFERRED SELF Confirmed By:Oleg Scales
[2021-12-06] MEDS: APIXABAN 2.5 MG TAB PO SCH (06:55)
[2021-12-06 07:05] LABS: BUN Creatinine Ratio 18.9 (10-20); Calcium 8.5 mg/dl (8.5-10.1); Creatinine Clr Calc Pharmacy 19.8 ml/min; Est GFR (African American) 24.7 ml/min; Est GFR (Non-African American) 21.3 ml/min; Phosphorus 4.2 mg/dl (2.5-4.9); Potassium 4.3 mmol/L (3.5-5.1)
[2021-12-06] MEDS ORDERED: ATROPINE SULFATE 0.1 MG/ML 10ML SYR IV PRN (07:36)
[2021-12-06] MEDS ORDERED: ePHEDrine sulfate 50 MG/ML AMP IV PRN (07:36)
--- NOTE | 2021-12-06 07:36 | Anesthesiology Consultation ---
Date of Service December 06, 2021 Assessment & Plan Chart Review Chart Review: Acceptable Risk for Surgery and Patient NOT seen in Pre Admission Testing Consults Requested none ASA ASA4 Proposed Anesthesia Anesthesia Type: General Risk / Benefits Reviewed With: PT / POA / Parent / Guardian, Accepts Plan and Informed Consent Obtained History Surgery Operation Date: 12/06/21 07:30 Proposed Procedures p Cardioversion Key Operator w/Anesthesia - Messi Horvath, Height/Weight Height: 5 ft 2 in Weight: 75.8 kg Allergies Allergy/AdvReac Type Severity Reaction Status Date / Time ferrous sulfate Allergy Diarrhea Verified 12/03/21 14:52 gluten Allergy Dermatitis Verified 12/03/21 14:52 herpetiformis pramipexole [From Mirapex] Allergy Dizziness Verified 12/03/21 14:52 Medications Home Medications Medication Instructions Recorded Confirmed Last Taken acetaminophen 300 mg-codeine 30 mg 1 tab PO Q6H PRN Pain 12/03/21 12/03/21 U nknown tablet amiodarone 100 mg tablet 100 mg PO DAILY 12/03/21 12/03/21 Unknown apixaban 2.5 mg tablet 2.5 mg PO BID 12/03/21 12/03/21 Unknown calcium carbonate 500 mg-vitamin 1 tab PO DAILY 12/03/21 12/03/21 Unknown D3 10 mcg (400 unit) tablet carvedilol 12.5 mg tablet 12.5 mg PO BIDM 12/03/21 12/03/21 Unknown dapsone 25 mg tablet 25 mg PO DAILY PRN celiac disease 12/03/21 12/03/21 Unknown diltiazem HCl 240 mg 240 mg PO DAILY 12/03/21 12/03/21 Unknown capsule,extended release 24 hr furosemide 40 mg tablet 40 mg PO DAILY 12/03/21 12/03/21 Unknown gabapentin 400 mg capsule 400 mg PO QID 12/03/21 12/03/21 Unknown hydralazine 50 mg tablet 50 mg PO TID 12/03/21 12/03/21 Unknown lactobacillus combination no.4 3 3,000 mmu cells PO DAILY 12/03/21 12/03/21 Unknown billion cell capsule (Probiotic) multivitamin 2 tab PO DAILY 12/03/21 12/03/21 Unknown omeprazole 40 mg capsule,delayed 40 mg PO DAILY 12/03/21 12/03/21 Unknown release ropinirole 0.25 mg tablet 0.25 mg PO HS 12/03/21 12/03/21 Unknown rotigotine 1 mg/24 hour 1 mg transdermal DAILY 12/03/21 12/03/21 12/02/21 transdermal 24 hour patch (Neupro) zolpidem 6.25 mg tablet,extended 6.25 mg PO HS 12/03/21 12/03/21 Unknown release,multiphase Active Medications Generic Name Dose Route Start Last Admin Trade Name Freq PRN Reason Stop Dose Admin Acetaminophen 650 mg 12/03/21 16:24 12/04/21 10:32 Acetaminophen 325 Mg Tab PO 01/02/22 16:23 650 mg Q4H PRN Administration Pain or Fever Acetaminophen/Codeine Phosphate 1 tab 12/03/21 16:24 12/05/21 16:52 Acetaminophen W/Codeine #3 1 Tab PO 01/02/22 16:23 1 tab Q6H PRN Administration Pain Apixaban 2.5 mg 12/03/21 21:00 12/06/21 06:55 Apixaban 2.5 Mg Tab PO 01/02/22 20:59 2.5 mg BID DIMA Administration Carvedilol 12.5 mg 12/03/21 17:00 12/05/21 16:03 Carvedilol 12.5 Mg Tab PO 01/02/22 16:59 12.5 mg BIDM DIMA Administration Diltiazem HCl 240 mg 12/04/21 09:00 12/05/21 08:33 Diltiazem Hcl 240 Mg Capcr PO 01/03/22 08:59 240 mg DAILY DIMA Administration Gabapentin 400 mg 12/03/21 21:00 12/05/21 20:22 Gabapentin 400 Mg Cap PO 01/02/22 20:59 400 mg BID DIMA Administration Protocol Hydralazine HCl 50 mg 12/03/21 21:00 12/05/21 20:30 Hydralazine Tab 50 Mg Tab PO 01/02/22 20:59 Not Given TID DIMA Promethazine HCl 6.25 mg/ 50.25 mls @ 201 mls/hr 12/03/21 16:24 12/04/21 10:48 Sodium Chloride IV 01/02/22 16:23 Infused Q6H PRN Infusion Nausea And Vomiting Amiodarone HCl/Dextrose 360 mg in 200 mls @ 16.667 mls/hr 12/03/21 23:00 12/06/21 07:21 Nexterone / D5w IV 01/02/22 22:59 0.5 mg/min .Q12H DIMA 16.7 mls/hr Infusion 0.5 MG/MIN Lactobacillus Acidophilus 2 cap 12/04/21 09:00 12/05/21 08:33 Advanced Probiotic 1250 Mg Capsule PO 01/03/22 08:59 2 cap DAILY DIMA Administration Multivitamins 2 tab 12/04/21 09:00 12/05/21 08:33 Multivitamin Tab PO 01/03/22 08:59 2 tab DAILY DIMA Administration Multivitamins/Minerals 1 tab 12/04/21 09:00 12/05/21 09:50 Calcium 600mg + Vit D 400 Iu Tab PO 01/03/22 08:59 1 tab DAILY DIMA Administration Pantoprazole Sodium 40 mg 12/04/21 09:00 12/05/21 08:33 Pantoprazole 40 Mg Tab PO 01/03/22 08:59 40 mg DAILY DIMA Administration Protocol Potassium Chloride 20 meq 12/04/21 09:00 12/05/21 08:33 Potassium Chloride Crtab 20 Meq Tabcr PO 01/03/22 08:59 20 meq QAM DIMA Administration Ropinirole HCl 0.25 mg 12/04/21 21:00 12/05/21 20:22 Ropinirole Hcl 0.25 Mg Tablet PO 01/03/22 20:59 0.25 mg BID DIMA Administration Rotigotine 1 patch 12/04/21 15:00 12/05/21 13:39 Rotigotine Patch 1 Mg/24 Hours *Patients Own Med* TD 01/03/22 14:59 1 patch QD DIMA Administration Zolpidem Tartrate 5 mg 12/03/21 21:00 12/05/21 20:21 Zolpidem Tartrate 5 Mg Tab PO 01/02/22 20:59 5 mg HS DIMA Administration NPO Date Last Intake of Fluids: 12/06/21 Time Last Intake of Fluids: 06:00 Last Intake of Fluids Comment: sip water w/ meds Date Last Intake of Solids: 12/05/21 Time Last Intake of Solids: 18:00 Past Medical History Medical History Atrial fibrillation Breast cancer R breast cancer, s/p 21 XRT tx and lumpectomy CHF (congestive heart failure) Chronic low back pain Dermatitis herpetiformis GERD (gastroesophageal reflux disease) HTN (hypertension) Mitral valve prolapse Neuropathy RLS (restless legs syndrome) Exercise / Class Metabolic Activity III < 4 Walking/Shop/Light housework Past Family History Family History Other Family history non-contributory Past Surgical History Surgical History History of left knee replacement History of right knee joint replacement History of tubal ligation Hx of foot surgery tendon release due to contracture S/P bilateral hip replacements Past Anesthesia History No Hx of Anesthesia Complications and No Family Hx of Anesthesia Complications History of PONV No Hx of PONV and No Hx of Motion Sickness Social History Smoking Status: Never smoker Do You Dip or Chew Tobacco: No Hx Alcohol Use: Yes Alcohol type: wine alcohol intake frequency: holidays/special occasions only Hx Substance Use: No substance use type: does not use Physical Exam Vital Signs Last Vital Signs Temp 36.8 C 12/06/21 03:14 Pulse 89 12/06/21 07:13 Resp 20 12/06/21 07:13 BP 140/79 12/06/21 07:13 Pulse Ox 92 12/06/21 07:13 O2 Del Method 12/06/21 03:14 O2 Flow Rate 3 12/06/21 07:13 Constitutional + obese ENMT Mouth: + dentition abnormality and + dentures Thyromental Distance: < 3.5 Finger Breadths Mallampati Class: II Neck normal visual inspection and trachea midline; neck extension not limited Respiratory + audible wheezes; + abnormal respiratory effort Auscultation: + diminished lung sounds, + crackles and + rales Cardiovascular Rate/Rhythm: + abnormal rate (irreg.) and + abnormal rhythm (irreg.) Heart Sounds: + murmur (@ apex;MR) Vessels: no carotid bruit Musculoskeletal Spine: normal cervical ROM Extremities: full ROM of extremities Neurologic moves all extremities Motor/Sensory: no sensory deficit Psychiatric Orientation: alert and oriented x 3 Testing Laboratory Results 12/05/21 09:05 12/06/21 06:16 PT 11.5 Seconds (9.0-12.0) 12/03/21 12:46 INR 1.1 (0.9-1.1) 12/03/21 12:46 APTT 27.1 Seconds (21.0-31.0) 12/03/21 12:46 Hemoglobin A1c 6.2 % (4.5-5.6) H 12/04/21 07:43
--- NOTE | 2021-12-06 07:38 | History & Physical Bridge Note ---
Date of Service December 06, 2021 History & Physical Bridge Note I have examined the patient, reviewed the History & Physical and in the interval since the performance of the History & Physical I have noted the following changes of clinical significance: Mild laboratory studies reveal worsening sodium, 127 mmol/L, worsening creatinine 2.12. Oxygen saturation stable. Cardioversion is felt to be indicated for improvement of symptoms and hemodynamics. Informed consent obtained 12/05/2021. CBC 12/05/21 Range/Units 09:05 WBC 7.48 (4.8-10.8) K/ul RBC 3.22 L (3.93-5.22) M/uL Hgb 9.2 L (12.0-16.0) g/dl Hct 27.9 L (34.1-44.9) % Plt Count 336 (130-400) K/uL Neut # (Auto) 5.80 (1.4-6.5) K/uL Lymph # (Auto) 0.68 L (1.2-3.4) K/uL Terry # (Auto) 0.74 (0.24-0.82) K/uL Eos # (Auto) 0.20 (0-0.50) K/uL Baso # (Auto) 0.04 (0-0.2) K/uL Comprehensive Metabolic Panel 12/05/21 12/06/21 Range/Units 09:05 06:16 Sodium 130 L 127 L (136-145) mmol/L Potassium 4.0 4.3 (3.5-5.1) mmol/L Chloride 95 L 93 L (98-107) mmol/L Carbon Dioxide 25 24 (21-32) mmol/L BUN 36 H 40 H (6-23) mg/dl Creatinine 1.83 H 2.12 H (0.6-1.2) mg/dl Glucose 173 H 109 H (70-99(Fasting)) mg/dl Calcium 8.6 8.5 (8.5-10.1) mg/dl Intake and Output 12/05/21 12/06/21 12/06/21 22:59 06:59 14:59 Intake Total 121.353 / 641.215 69.862 / 641.215 130.817 / 130.817 Output Total 50 / 675 225 / 675 Balance 71.353 / -33.785 -155.138 / -33.785 130.817 / 130.817 Intake: IV 121.353 / 391.215 69.862 / 391.215 130.817 / 130.817 Amiodarone / D5w 360 mg In 200 121.353 / 391.215 69.862 / 391.215 130.817 / 130.817 ml @ 0.5 MG/MIN 16.667 mls/hr IV .Q12H [facility] Rx#:[id number] Output: Urine 50 / 275 225 / 275 Other: Other Intake Source sips npo Weight 75.8 kg 75.8 kg Patient Weight 12/07/21 06:59 Weight 75.8 kg
--- NOTE | 2021-12-06 07:51 | Anesthesiology Progress Note ---
Date of Service December 06, 2021 Anesthesia Post Procedure Vital Signs Vital Signs: Temp Pulse Pulse Resp BP Pulse Ox O2 Del Method 12/06/21 07:13 89 20 140/79 92 12/06/21 03:14 36.8 C 66 18 106/60 95 Nasal CPAP 12/05/21 22:12 78 12/05/21 22:48 37 C 69 18 107/63 96 Nasal CPAP 12/05/21 19:30 Nasal Cannula 12/05/21 20:30 104/63 12/05/21 19:09 37.3 C 86 16 102/64 90 Nasal Cannula 12/05/21 16:16 36.7 C 95 H 20 115/62 91 Nasal Cannula 12/05/21 08:00 20 92 Nasal Cannula 12/05/21 08:00 Nasal Cannula 12/05/21 10:58 37.0 C 96 H 18 120/68 91 Nasal Cannula O2 Flow Rate 12/06/21 07:13 3 12/06/21 03:14 12/05/21 22:12 12/05/21 22:48 12/05/21 19:30 2 12/05/21 20:30 12/05/21 19:09 2 12/05/21 16:16 2 12/05/21 08:00 2 12/05/21 08:00 2 12/05/21 10:58 2 Pain Intensity Bilateral Lower Back: Pain Intensity: 0 Transfer of Care Handoff Completed per policy Notes Mental Status: alert / awake / arousable Patient Amnestic to Procedure: Yes Nausea / Vomiting: adequately controlled Pain: adequately controlled Airway Patency, RR, SpO2: stable & adequate BP & HR: stable & adequate Hydration State: stable & adequate Anesthetic Complications: no major complications apparent
--- NOTE | 2021-12-06 07:55 | Cardioversion ---
Date of Service December 06, 2021 Electrical Cardioversion Rpt Electrical Cardioversion Report Date of Surgery December 06, 2021 Pre & Post Diagnosis Preprocedure diagnosis: Symptomatic atrial fibrillation Post procedure diagnosis: Unsuccessful cardioversion, remained in atrial fibrillation Operation Date: 12/06/21 07:30 Procedure Direct-current cardioversion procedure: After informed consent was obtained and timeout was performed the patient was sedated with the assistance of the anesthesia service receiving a total of 30 mg of IV propofol. Patient underwent cardioversion receiving 2 doses of synchronized biphasic energy of 200 J and 300 J. After the second shock, patient still remained in a rate controlled atrial fibrillation in the 90s, no further attempts were made. Patient's hemodynamics remained stable throughout the procedure. Vein Access Technician Messi Horvath DO Knocker Out Kavita Boston RN Estimated Blood Loss 0 Anesthesia Type MAC Complications none
[2021-12-06] MEDS ORDERED: LIDOCAINE 2% MPF LOCAL 5 ML VIAL INFIL ONE (08:00)
[2021-12-06] MEDS ORDERED: PROPOFOL IV EMULSION 10 MG/ML 20 ML VIAL IV ONE (08:00)
[2021-12-06] MEDS: ADVANCED PROBIOTIC 1250 MG CAPSULE PO SCH (09:02)
[2021-12-06] MEDS: GABAPENTIN 400 MG CAP PO SCH ×2 (09:03→20:19)
[2021-12-06] MEDS: PANTOprazole 40 MG TAB PO SCH (09:03)
[2021-12-06] MEDS: rOPINIRole HCL 0.25 MG TABLET PO SCH ×2 (09:03→20:18)
[2021-12-06] MEDS: CALCIUM 600MG + VIT D 400 IU TAB PO SCH (09:03)
[2021-12-06] MEDS: MULTIVITAMIN TAB PO SCH (09:03)
[2021-12-06] MEDS: hydrALAZINE TAB 50 MG TAB PO SCH ×3 (09:03→20:19)
[2021-12-06] MEDS ORDERED: ALBUT/IPRATROP 3MG/0.5MG NEB 3 ML VIAL NEB STA (10:13)
--- NOTE | 2021-12-06 10:13 | Hospitalist Progress Note ---
Date of Service December 06, 2021 Assessment & Plan (1) Hypoxia: Plan: - admit to tele - pt saturating 91% RA, but dyspneic with conversation, was placed on 2L - obtain echocardiogram - normal EF, in afib - consulted cardiology - daily weights, low sodium, heart healthy diet - CHF likely playing role - continues on lasix and amio drip per Cardiology - now held s/p unsuccessful attempted DC cardioversion 12/06/2021 - continue rate control - more hypoxic and short of breath after procedure with increasing oxygen requirements - possible aspiration pneumonitis during procedure? - CXR ordered - duoneb ordered for upper airway wheezing (2) CHF (congestive heart failure): Plan: - see above (3) Atrial fibrillation: Plan: - rate controlled - on diltiazem, amiodarone and eliquis - pt states normally she is in NSR - s/p unsuccessful cardioverions 12/06/2021 - continue rate control - follow up cards for further recs (4) HTN (hypertension): Plan: - bp controlled in ED - continue coreg, hydralazine, diltiazem (5) CKD (chronic kidney disease): Plan: - baseline cr 1.6-1.8 per PCP office - initially thought to possibly be Acute kidney injury but likely just baseline CKD - obtaining records from PCP - per pt, she is scheduled to see nephro on 12/16 to establish care - monitor renal fxn given diuresis - holding diuresis given bump in creatinine to 2.1, Na 127 (6) Anemia: Plan: - stable, no signs of bleeding - monitor for now Plan Celiac Disease/Dermatitis herpetiformis dapsone prn, GF diet Chronic back/L hip pain previous L hip replacement, XR ordered pt states she follows ortho in [place], they feel it is likely bursitis PT/OT when able on apap-codeine prn, gabapentin - x-ray without pathology or abnormality in hip arthroplasties RLS continue require and neupro patch DVT ppx: Eliquis Dispo: PCU, Pt lives alone in [place], [place] in 1st floor setup with 2 steps to enter, typically independent of adls/iadls, here visiting in [place] with Daughter in law FULL CODE - discussed with patient at bedside PCP: GABBI Corral [place], [place] Admission and Anticipated Discharge Date Admission Date: December 04, 2021 Subjective Patient with Afib on AC, CHF, chronic pain, h/o right breast CA s/p lumpectomy and radiation, RLS, neuropathy, MVP, GERD, CKD who presented for shortness of breath, found to be in CHF exacerbation and afib. Started on amiodarone drip and IV lasix per Cardiology with improvement. Amio being managed by Cardiology, now s/p attempted DC cardioversion x2 12/06/2021 without success, patient remained in rate controlled afib. Patient reports worsening of her respiratory symptoms since the Cardioversion attempts today. Denies chest pain, cough, n/v/d, light headedness. Review of Systems Review of Systems: All systems reviewed & are unremarkable except as noted in Subjective Physical Exam Physical Exam: Constitutional: WD/WN, Elderly F, vitals as above, tachypneic with conversation, NAD, sitting up in bed, pleasant Head: Normocephalic, Atraumatic Eyes: PERRL, conjunctivae normal, anicteric sclerae ENMT: external ear and nose normal, oropharynx normal Neck: trachea midline, no thyromegaly normal visual inspection Respiratory: increased respiratory effort, + tachypnea, crackles in RLL, upper airway wheeze, rales, rhonchi. Cardiovascular: regular rate, Irregular rhythm, no murmur appreciated, no LE edema Vessels: no JVD or carotid bruit Chest: normal inspection of chest Abdomen: normal bowel sounds, soft, nontender, no hepatosplenomegaly Musculoskeletal: no cyanosis or clubbing, AROM x 4 Skin: no rashes, warm and dry normal turgor Neurologic: PERRL, EOMI, accommodation nl, no face palsy, no dysarthria CN's II-XI intact bilaterally and moves all extremities Psychiatric: A+Ox3, euthymic affect Lymphatic: no cervical or axillary lymphadenopath Results & Data Results & Data ([facility]) Vital Signs (Past 12 Hours) Vital Signs Temp Pulse Pulse Resp BP BP Pulse Ox 12/06/21 08:55 36.7 C 102 H 24 163/69 H 94 12/06/21 08:25 36.8 C 90 22 144/75 H 92 12/06/21 08:20 93 H 20 120/71 92 12/06/21 07:45 20 131/62 12 L 12/06/21 08:05 89 20 113/73 92 12/06/21 07:50 85 18 110/79 92 12/06/21 07:13 89 20 140/79 92 12/06/21 03:14 36.8 C 66 18 106/60 95 12/05/21 22:12 78 12/05/21 22:48 37 C 69 18 107/63 96 O2 Del Method O2 Flow Rate 12/06/21 08:55 Nasal Cannula 6 12/06/21 08:25 Nasal Cannula 5 12/06/21 08:20 5 12/06/21 07:45 Oxymask 12/06/21 08:05 5 12/06/21 07:50 5 12/06/21 07:13 3 12/06/21 03:14 Nasal CPAP 12/05/21 22:12 12/05/21 22:48 Nasal CPAP Laboratory Results BMP 12/06/21 06:16 Sodium 127 L Potassium 4.3 Chloride 93 L Carbon Dioxide 24 BUN 40 H Creatinine 2.12 H Glucose 109 H Calcium 8.5 Diagnostic Findings reveiwed Medications Administered Current Inpatient Medications Acetaminophen (Acetaminophen 325 Mg Tab) 650 mg PO Q4H PRN PRN Reason: Pain or Fever Stop: 01/02/22 16:23 Last Admin: 12/04/21 10:32 Dose: 650 mg Acetaminophen/Codeine Phosphate (Acetaminophen W/Codeine #3 1 Tab) 1 tab PO Q6H PRN PRN Reason: Pain Stop: 01/02/22 16:23 Last Admin: 12/05/21 16:52 Dose: 1 tab Al Hydrox/Mg Hydrox/Simethicone (Aluminum/Magnesium Susp 30 Ml Udc) 15 ml PO Q4H PRN PRN Reason: Dyspepsia Stop: 01/02/22 16:23 Albuterol (Albut/Ipratrop 3mg/0.5mg Neb 3 Ml Vial) 3 ml NEB NOW STA; Protocol Stop: 12/06/21 10:14 Apixaban (Apixaban 2.5 Mg Tab) 2.5 mg PO BID DIMA Stop: 01/02/22 20:59 Last Admin: 12/06/21 06:55 Dose: 2.5 mg Atropine Sulfate (Atropine Sulfate 0.1 Mg/Ml 10ml Syr) 0.5 mg IV Q1M PRN PRN Reason: PACU Use-HR<40 &/or Bradycardi Stop: 12/06/21 15:36 Carvedilol (Carvedilol 12.5 Mg Tab) 12.5 mg PO BIDM [facility] Stop: 01/02/22 16:59 Last Admin: 12/05/21 16:03 Dose: 12.5 mg Diltiazem HCl (Diltiazem Hcl 240 Mg Capcr) 240 mg PO DAILY [facility] Stop: 01/03/22 08:59 Last Admin: 12/05/21 08:33 Dose: 240 mg Ephedrine Sulfate (Ephedrine Sulfate 50 Mg/Ml Amp) 5 mg IV Q5M PRN PRN Reason: PACU Use Only-SBP<90 mmHg Stop: 12/06/21 15:36 Gabapentin (Gabapentin 400 Mg Cap) 400 mg PO BID [facility]; Protocol Stop: 01/02/22 20:59 Last Admin: 12/06/21 09:03 Dose: 400 mg Hydralazine HCl (Hydralazine Tab 50 Mg Tab) 50 mg PO TID [facility] Stop: 01/02/22 20:59 Last Admin: 12/06/21 09:03 Dose: 50 mg Promethazine HCl 6.25 mg/ (Sodium Chloride) 50.25 mls @ 201 mls/hr IV Q6H PRN PRN Reason: Nausea And Vomiting Stop: 01/02/22 16:23 Last Infusion: 12/04/21 10:48 Dose: Infused Lactobacillus Acidophilus (Advanced Probiotic 1250 Mg Capsule) 2 cap PO DAILY [facility] Stop: 01/03/22 08:59 Last Admin: 12/06/21 09:02 Dose: 2 cap Multivitamins (Multivitamin Tab) 2 tab PO DAILY [facility] Stop: 01/03/22 08:59 Last Admin: 12/06/21 09:03 Dose: 2 tab Multivitamins/Minerals (Calcium 600mg + Vit D 400 Iu Tab) 1 tab PO DAILY [facility] Stop: 01/03/22 08:59 Last Admin: 12/06/21 09:03 Dose: 1 tab Pantoprazole Sodium (Pantoprazole 40 Mg Tab) 40 mg PO DAILY [facility]; Protocol Stop: 01/03/22 08:59 Last Admin: 12/06/21 09:03 Dose: 40 mg Polyethylene Glycol (Polyethylene (Miralax) 17 Gm Pack) 17 gm PO DAILY PRN PRN Reason: Constipation Stop: 01/02/22 16:23 Potassium Chloride (Potassium Chloride Crtab 20 Meq Tabcr) 20 meq PO QAM DIMA Stop: 01/03/22 08:59 Last Admin: 12/05/21 08:33 Dose: 20 meq Ropinirole HCl (Ropinirole Hcl 0.25 Mg Tablet) 0.25 mg PO BID DIMA Stop: 01/03/22 20:59 Last Admin: 12/06/21 09:03 Dose: 0.25 mg Rotigotine (Rotigotine Patch 1 Mg/24 Hours *Patients Own Med*) 1 patch TD QD DIMA Stop: 01/03/22 14:59 Last Admin: 12/05/21 13:39 Dose: 1 patch Zolpidem Tartrate (Zolpidem Tartrate 5 Mg Tab) 5 mg PO HS [facility] Stop: 01/02/22 20:59 Last Admin: 12/05/21 20:21 Dose: 5 mg (1) CHF (congestive heart failure) Heart failure type: diastolic Heart failure chronicity: acute Qualified Code(s): I50.31 - Acute diastolic (congestive) heart failure (2) Atrial fibrillation Atrial fibrillation type: unspecified chronic Qualified Code(s): I48.20 - Chronic atrial fibrillation, unspecified (3) HTN (hypertension) Hypertension type: unspecified Qualified Code(s): I10 - Essential (primary) hypertension
--- NOTE | 2021-12-06 10:36 | XRay Report ---
XR chest 1V portable CLINICAL HISTORY: shortness of breath TECHNIQUE: Single frontal radiograph of the chest was obtained. Comparison: Comparison is made to chest radiograph 12/03/2021 FINDINGS: No lines and tubes are seen. Cardiomegaly is noted. Airspace opacity is in the right lower lung. Ther e is mild pulmonary edema. No evidence of pleural effusion or pneumothorax. IMPRESSION: 1. Right lower lung airspace opacity may represent atelectasis, pneumonia, and/or aspiration, increa sed from prior exam. 2. Cardiomegaly with mild pulmonary edema. ACT 112: Negative or not required by law. Electronically signed by: Grant Galindo M.D. 12/06/2021 10:35 AM
[2021-12-06] MEDS ORDERED: SODIUM CHLOR 7% 4 ML NEB NEB STA (13:13)
[2021-12-06] MEDS ORDERED: ALBUT/IPRATROP 3MG/0.5MG NEB 3 ML VIAL ONE (13:21)
--- NOTE | 2021-12-06 14:25 | Cardiology Progress Note ---
Date of Service December 06, 2021 Assessment & Plan (1) Acute on chronic heart failure with preserved ejection fraction (HFpEF): Plan: * Patient received 40 mg IV furosemide plus extra 20 mg IV x 1 on 12/05 and creatinine increased from 1.58--> 1.83--> 2.12. * Cardioversion attempted 12/06, unsuccessful x 2 shocks * Since rhythm control strategy not successful with DC IV and NURSING SCHEDULER oral amiodarone (was on 100 mg daily) * Resume NURSING SCHEDULER coreg and diltiazem doses (Coreg this evening, Diltiazem am of 917) * Remain on Eliquis (2) Atrial fibrillation: Plan: * as noted above (3) Dyspnea: Plan: * Given lack of improvement with breathing with escalated furosemide and worsening creatinine and new CXR findings of right lower lung opacity , q uestion if pneumonia also playing a role with infiltrate showing up late . * Discussed with Dr Kraft * Holding furosemide (4) EL (acute kidney injury): Plan: * as described above. * Hold furosemide * May need IVF , but for now observe and repeat BMP in am. DVT prophylaxis: Continue Eliquis. Admission and Anticipated Discharge Date Admission Date: December 04, 2021 Subjective Patient seen in follow up. Cardioversion attempted this am without success x 2 shocks. Remains in atrial fibrillation, rates ranging from 90-105 while sleeping. Review of Systems Review of Systems: All systems reviewed & are unremarkable except as noted in HPI & below Physical Exam Physical Exam: Vital Signs Temp 36.8 C 12/06/21 11:24 Pulse 97 H 12/06/21 13:28 Resp 22 12/06/21 13:28 BP 120/71 12/06/21 11:24 Pulse Ox 93 12/06/21 13:28 O2 Del Method 12/06/21 13:28 O2 Flow Rate 6 12/06/21 13:28 Constitutional: no acute distress Respiratory: diminished breath sounds at bases , mild expiratory wheezing Cardiovascular: Rate/Rhythm: + irregularly irregular Heart Sounds: no murmur Extremities: no edema Gastrointestinal (Abdomen): normal bowel sounds, soft, nontender, no hepatosplenomegaly Neurologic: PERRL, EOMI, accommodation nl, no face palsy, no dysarthria (1) Atrial fibrillation Atrial fibrillation type: unspecified chronic Qualified Code(s): I48.20 - Chronic atrial fibrillation, unspecified
[2021-12-06] MEDS ORDERED: VANCOMYCIN CONSULT ACTIVE PRN (14:27)
[2021-12-06] MEDS ORDERED: VANCOMYCIN HCL 1,500 MG in SODIUM CHLORIDE 0.9% 500 ML IV ONE (15:00)
--- NOTE | 2021-12-06 15:01 | Pharmacy Report ---
Pharmacy PK ABX Note - Date of Service December 06, 2021 - Assessment and Plan Assessment * Ms Mead is an 81 year old F receiving Vancomycin/Cefepime for empiric treatment of ?HAP. * Pertinent microbiologic data includes: MRSA Nasal Swab pending * Pt w/ increasing O2 requirements, despite good diuresis w/ lasix. CXR demonstrates increased R lung opacities. Plan Vancomycin * Loading dose: 1500mg IV x 1 * Based on patient's poor renal function (CrCl ~20mL/min), will re-dose based on vanc level(s). * Target AUC/TIM of 400-600 mg/L.hr * Random level ordered for tomorrow with AM labs. Pharmacy will continue to follow and will adjust dose/frequency as necessary. Thank you. Pharmacy has transitioned to AUC monitoring for vancomycin. AUC/TIM is the preferred PK/PD target and is associated with decreased risk of nephrotoxicity compared to traditional trough targets.
[2021-12-06] MEDS: ACETAMINOPHEN W/CODEINE #3 1 TAB PO PRN (15:27)
[2021-12-06] MEDS: ROTIGOTINE 1 MG/24 HR TD SCH (15:29)
[2021-12-06] MEDS: CEFEPIME 2,000 MG in SYRINGE 0 ML IV SCH (15:46)
--- NOTE | 2021-12-06 15:54 | Electrocardiogram Report ---
Test Reason : Blood Pressure : / mmHG Vent. Rate : 094 BPM Atrial Rate : 000 BPM P-R Int : 000 ms QRS Dur : 084 ms QT Int : 392 ms P-R-T Axes : 000 032 033 degrees QTc Int : 490 ms Atrial fibrillation Low voltage QRS Prolonged QT Abnormal ECG When compared with ECG of 05-DEC-2021 06:14, No significant change was found Confirmed by Amadou Cifuentes ([id number]) on 12/06/2021 3:53:47 PM Referred By: REFERRED SELF Confirmed By:Amadou Cifuentes
[2021-12-06] MEDS ORDERED: methylPREDNISolone 40 MG in SYRINGE 0 ML IV ONE (16:15)
[2021-12-06 17:45] LABS: Adenovirus PCR Not Detected (NotDetected); Bordetella parapertussis PCR Not Detected (NotDetected); Bordetella pertussis PCR Not Detected (NotDetected); Chlamydia pneumoniae PCR Not Detected (NotDetected); Coronavirus 229E PCR Not Detected (NotDetected); Coronavirus CoV-2 (COVID19)PCR Not Detected (NotDetected); Coronavirus HKU1 PCR Not Detected (NotDetected); Coronavirus NL63 PCR Not Detected (NotDetected); Coronavirus OC43PCR Not Detected (NotDetected); Human Metapneumovirus PCR Not Detected (NotDetected); Influenza A PCR Not Detected (NotDetected); Influenza B PCR Not Detected (NotDetected); Mycoplasma pneumoniae PCR Not Detected (NotDetected); Parainfluenza Virus 1 PCR Not Detected (NotDetected); Parainfluenza Virus 2 PCR Not Detected (NotDetected); Parainfluenza Virus 3 PCR Not Detected (NotDetected); Parainfluenza Virus 4 PCR Not Detected (NotDetected); Respiratory Syncytial VirusPCR Not Detected (NotDetected); Rhinovirus/Enterovirus PCR Not Detected (NotDetected)
[2021-12-06] MEDS: carvediloL 12.5 MG TAB PO SCH (17:48)
[2021-12-06] MEDS ORDERED: METOPROLOL TARTRATE 1 MG/ML VIAL IV STA (20:02)
--- NOTE | 2021-12-06 20:03 | Critical Care Consultation ---
Date of Consultation December 06, 2021 Assessment & Plan (1) Acute on chronic heart failure with preserved ejection fraction (HFpEF): (2) Acute respiratory failure with hypoxia: (3) Acute dyspnea: (4) Atrial fibrillation with RVR: Plan 81-year-old female with a past medical history of atrial fibrillation on Eliquis, CKD stage III and chronic anemia presenting to the hospital due to increasing shortness of breath. She underwent a cardioversion today and remained in persistent atrial fibrillation. She subsequently had increasing hypoxemia and was transferred to the ICU. She is currently on high flow oxygen. Neurologic: Avoid sedating agents. No evidence of delirium. Pulmonary: Continue high flow oxygen with low threshold to transition to BiPAP. Chest x- ray pending. Will consider CT chest without contrast depending on chest x-ray findings. We will hold on further diuresis at this time pending BMP. Place Gonzalez catheter to monitor urine output closely. Patient was started on prednisone by cardiology due to concerns of possible pneumonitis. Suspect an element of aspiration pneumonia and hypoventilation related to sedation received earlier today. Respiratory bio fire ordered. We will consider bronchoscopy if patient requires intubation to rule out alveolar hemorrhage in the context of chronic anticoagulation and worsening renal failure. Patient also received amiodarone earlier in the hospital course and amiodarone related pneumonitis remains possible although also less likely. Cardiovascular: EKG without signs of ischemia. Echo from earlier in the admission did not demonstrate any reduced systolic function. Low threshold to recall cardiology if patient has worsening chest pain to rule out active coronary ischemia with left heart cath. Troponins ordered. Gastrointestinal: N.p.o. for the time being given tenuous respiratory status. Renal: EL possibly related to cardiorenal disease versus overdiuresis. Repeat BMP pending. Renal ultrasound in the a.m if renal function continues to worsen. Infectious disease: Procalcitonin blood cultures ordered. MRSA screen negative. Cefepime to be continued at this time. Bio fire ordered as noted above. Hematologic: Patient currently on Eliquis. Will hold further doses given anemia and p ossibility of alveolar hemorrhage although unlikely. Endocrine: TSH within normal limits. Monitor glucose closely. VTE prophylaxis: Hold Eliquis. SCDs. CODE STATUS: Full code Family at bedside: Discussed with son at bedside. Disposition: ICU I have personally spent 42 minutes of critical care time in the direct management of this patient. This is a life/limb threatening event. This includes time spent evaluating patient, direct bedside care, chart review, placing orders, interpretation of diagnostic studies, discussion with consultants, patient, and family members, as well as other required patient management activities. This time is exclusive of all separately billable procedures, and teaching time and separate from and in addition to any other critical care service time. Thank you for allowing us to participate in the care of this patient. History of Present Illness Reason for Consultation: Worsening hypoxemia Attending Physician: Daniel Kraft MD History of Present Illness 81-year-old female with past medical history of diastolic heart failure and CKD stage III who presented to the hospital due to slowly progressive shortness of breath over the past 3 to 4 weeks. She was hospitalized in [place] about a month ago for the same symptoms. She underwent a cardioversion today and remained in atrial fibrillation. Since that period of time she has been having increasing shortness of breath and oxygen demands. Chest x-ray today demonstrated bilateral infiltrates consistent with pulmonary edema and possible developing pneumonia. Patient is normally independent at home. She lives alone and is able to drive. She had an echo 12/03/2021 which revealed an LVEF of 60 to 65%. Hemoglobin is 9.2. BMP suggest worsening hyponatremia with a sodium of 127. Creatinine increased to 2.12. TSH 12/03 was 1.33. proBNP 12/03/2021 was 272. Patient endorses some mild chest pressure and shortness of breath. EKG without signs of ischemia. A. fib RVR noted. Allergies Allergy/AdvReac Type Severity Reaction Status Date / Time ferrous sulfate Allergy Diarrhea Verified 12/03/21 14:52 gluten Allergy Dermatitis Verified 12/03/21 14:52 herpetiformis pramipexole [From Mirapex] Allergy Dizziness Verified 12/03/21 14:52 Home Medications Medication Instructions Recorded Confirmed Type acetaminophen 300 mg-codeine 30 mg 1 tab PO Q6H PRN Pain 12/03/21 12/03/21 History tablet amiodarone 100 mg tablet 100 mg PO DAILY 12/03/21 12/03/21 History apixaban 2.5 mg tablet 2.5 mg PO BID 12/03/21 12/03/21 History calcium carbonate 500 mg-vitamin 1 tab PO DAILY 12/03/21 12/03/21 History D3 10 mcg (400 unit) tablet carvedilol 12.5 mg tablet 12.5 mg PO BIDM 12/03/21 12/03/21 History dapsone 25 mg tablet 25 mg PO DAILY PRN celiac disease 12/03/21 12/03/21 History diltiazem HCl 240 mg 240 mg PO DAILY 12/03/21 12/03/21 History capsule,extended release 24 hr furosemide 40 mg tablet 40 mg PO DAILY 12/03/21 12/03/21 History gabapentin 400 mg capsule 400 mg PO QID 12/03/21 12/03/21 History hydralazine 50 mg tablet 50 mg PO TID 12/03/21 12/03/21 History lactobacillus combination no.4 3 3,000 mmu cells PO DAILY 12/03/21 12/03/21 History billion cell capsule (Probiotic) multivitamin 2 tab PO DAILY 12/03/21 12/03/21 History omeprazole 40 mg capsule,delayed 40 mg PO DAILY 12/03/21 12/03/21 History release ropinirole 0.25 mg tablet 0.25 mg PO HS 12/03/21 12/03/21 History rotigotine 1 mg/24 hour 1 mg transdermal DAILY 12/03/21 12/03/21 History transdermal 24 hour patch (Neupro) zolpidem 6.25 mg tablet,extended 6.25 mg PO HS 12/03/21 12/03/21 History release,multiphase Patient History Medical History (Updated 12/06/21 @ 20:11 by Clark Guardado MD) Acute dyspnea Acute respiratory failure with hypoxia Atrial fibrillation Atrial fibrillation with RVR Breast cancer R breast cancer, s/p 21 XRT tx and lumpectomy CHF (congestive heart failure) Chronic low back pain Dermatitis herpetiformis GERD (gastroesophageal reflux disease) HTN (hypertension) Mitral valve prolapse Neuropathy RLS (restless legs syndrome) Surgical History History of left knee replacement History of right knee joint replacement History of tubal ligation Hx of foot surgery tendon release due to contracture S/P bilateral hip replacements Family History Other Family history non-contributory Social History Smoking Status: Never smoker Second Hand Exposure: No; Do You Dip or Chew Tobacco: No; Tobacco Cessation Education Requested by Patient: No Hx Alcohol Use: Yes Alcohol type: wine Alcohol Intake Frequency Comment: Socially Hx Substance Use: No Preferred Language: Kiswahili Communication Ability: Effective Director Pharmacy Services Required: No Beliefs That Will Affect Care: None marital status: / Current Living Situation: Alone Current Living Situation Comment: Lives in [place] current occupational status: retired Feels Safe at Home: Yes Safety Concerns: Feels Safe At This Time Assistive Devices: Cane and Walker Review of Systems Review of Systems: All systems reviewed & are unremarkable except as noted in HPI & below Physical Exam Physical Exam: Constitutional: Elderly appearing female in moderate distress. Eyes: Pupils are equal round and reactive to light. Conjunctivae are normal. Anicteric sclera. Ears nose, mouth and throat: Mallampati class 2. Normal posterior oropharynx. Uvula is midline. Neck: Trachea is midline. Visual inspection is normal. Respiratory: Mild crackles bilaterally. Increased tachypnea. Cardiovascular: Regular rate and rhythm. No murmurs. No edema. Gastrointestinal: Normal bowel sounds, soft, nontender and nondistended. No hepatosplenomegaly noted. Musculoskeletal: No cyanosis. Patient is able to move all extremities. Strengt h is 5 out of 5 in the upper and lower extremities. Skin: No rashes, warm dry and intact. Neurologic: No obvious focal neurological deficits seen. Psychiatric: Alert and oriented x3 with a euthymic affect. Results & Data Results & Data ([facility]) Vital Signs (Past 12 Hours) Vital Signs Temp Pulse Resp BP BP Pulse Ox O2 Del Method 12/06/21 19:10 112 H 26 H 94 High Flow Nasal Cannula 12/06/21 13:28 97 H 22 93 Nasal Cannula 12/06/21 11:24 36.8 C 100 H 18 120/71 92 Nasal Cannula 12/06/21 09:00 Nasal Cannula 12/06/21 10:25 99 H 22 130/76 94 Nasal Cannula 12/06/21 11:09 36.7 C 94 H 20 116/69 92 Nasal Cannula 12/06/21 09:25 36.7 C 99 H 22 130/76 93 Nasal Cannula 12/06/21 08:55 36.7 C 102 H 24 163/69 H 94 Nasal Cannula 12/06/21 08:25 36.8 C 90 22 144/75 H 92 Nasal Cannula 12/06/21 08:20 93 H 20 120/71 92 12/06/21 08:05 89 20 113/73 92 O2 Flow Rate FiO2 12/06/21 19:10 35 65 12/06/21 13:28 6 12/06/21 11:24 12/06/21 09:00 5 12/06/21 10:25 6 12/06/21 11:09 6 12/06/21 09:25 6 12/06/21 08:55 6 12/06/21 08:25 5 12/06/21 08:20 5 12/06/21 08:05 5 Coding Level of Care Code Critical Care 1st 30-74 mins Diagnoses Acute on chronic heart failure with preserved ejection fraction (HFpEF) I50.33 Acute respiratory failure with hypoxia J96.01 Acute dyspnea R06.00 Atrial fibrillation with RVR I48.91 Time Spent (min) 42
--- NOTE | 2021-12-06 20:26 | XRay Report ---
XR chest 1V not portable HISTORY: 81 years-old Female hypoxia acute hypoxia COMPARISON: Chest radiograph of same day at 10:16 AM, chest radiograph 12/03/2021 TECHNIQUE: Portable AP view of the chest FINDINGS: Cardiac silhouette is enlarged. Pulmonary vascular congestion with interstitial coarsening redemonstr ated, similar to prior. No pneumothorax. Trace pleural effusions with mild left basilar predominant o pacities. Degenerative changes of the shoulders and spine. IMPRESSION: 1. Cardiomegaly with suggestion of pulmonary edema. 2. Trace pleural effusions with mild left lung base opacities. ACT 112: Negative or not required by law. The above report was generated using voice recognition software. It may contain grammatical, syntax o r spelling errors. Electronically signed by: Helio Bennett M.D. 12/06/2021 8:25 PM
[2021-12-06 20:47] LABS: Hemoglobin 9.4 g/dl (12.0-16.0); Mean Corpuscular Hemoglobin 28.3 pg (25.0-34.0); Mean Corpuscular Hgb Conc 33.6 g/dL (32.0-36.0); Mean Corpuscular Volume 84.3 fL (80.0-100.0); Mean Platelet Volume 10.4 fL (9.4-12.3); Platelet Count 351 K/uL (130-400); RDW Coefficient of Variation 14.2 % (11.5-14.5); RDW Standard Deviation 44.2 fL (36.4-46.3); Red Blood Count 3.32 M/uL (3.93-5.22); White Blood Count 8.59 K/ul (4.8-10.8)
[2021-12-06 21:05] LABS: Basophils # (auto) 0.02 K/uL (0-0.2); Basophils % (auto) 0.2 %; Immature Granulocytes # (auto) 0.04 K/uL (0.00-0.02); Immature Granulocytes % (auto) 0.5 %; Lymphocytes # (auto) 0.25 K/uL (1.2-3.4); Lymphocytes % (auto) 2.9 %; Monocytes # (auto) 0.25 K/uL (0.24-0.82); Monocytes % (auto) 2.9 %; Neutrophils # (auto) 8.03 K/uL (1.4-6.5); Neutrophils % (auto) 93.5 %; Polychromasia 1+
[2021-12-06 21:24] LABS: Calcium 8.7 mg/dl (8.5-10.1); Creatinine Clr Calc Pharmacy 21.6 ml/min; Est GFR (African American) 27.3 ml/min; Est GFR (Non-African American) 23.5 ml/min; Magnesium 2.1 mg/dl (1.7-2.4); Potassium 4.7 mmol/L (3.5-5.1)
--- NOTE | 2021-12-06 21:35 | CT Scan Report ---
CT chest diagnostic wo con CLINICAL HISTORY: possible pneumonitis TECHNIQUE: Multidetector row helical CT of the chest was performed. Coronal and sagittal reformations were obtained. Automated dose lowering techniques and/or adjustment according to patient size were u tilized for this exam. CT DOSE: 273.44 mGy.cm Comparison: Comparison is made to chest radiograph 12/06/2021 FINDINGS: Lungs and pleura: Bilateral pleural effusions are seen. There is underlying atelectasis as well as sm ooth interlobular septal thickening and ill-defined airspace opacities throughout. Heart and pericardium: Cardiomegaly is seen with biatrial enlargement. Vessels: Moderate atherosclerotic changes in the aorta and coronary arteries. Mediastinum and ally: Subcentimeter lymph nodes are seen. Chest wall and lower neck: Small thyroid nodules are noted which do not require follow-up by ACR evin montalvo. Abdomen: A hiatal hernia is seen. Bones: Degenerative changes in the thoracic spine. IMPRESSION: 1. Bilateral pleural effusions are seen. There is superimposed atelectasis and groundglass/consolida tive opacities which may represent infectious/inflammatory process. 2. Cardiomegaly and moderate pulmonary edema. ACT 112: Negative or not required by law. Electronically signed by: Grant Galindo M.D. 12/06/2021 9:33 PM
[2021-12-07] MEDS: ACETAMINOPHEN W/CODEINE #3 1 TAB PO PRN ×2 (01:45→21:59)
[2021-12-07 02:04] LABS: Hematocrit (blood only) 27.2 % (34.1-44.9); Hemoglobin 9.1 g/dl (12.0-16.0); Mean Corpuscular Hemoglobin 28.5 pg (25.0-34.0); Mean Corpuscular Hgb Conc 33.5 g/dL (32.0-36.0); Mean Corpuscular Volume 85.3 fL (80.0-100.0); Mean Platelet Volume 9.9 fL (9.4-12.3); Platelet Count 365 K/uL (130-400); RDW Standard Deviation 43.8 fL (36.4-46.3); Red Blood Count 3.19 M/uL (3.93-5.22); White Blood Count 6.92 K/ul (4.8-10.8)
[2021-12-07 02:24] LABS: BUN Creatinine Ratio 23.3 (10-20); Calcium 8.7 mg/dl (8.5-10.1); Creatinine Clr Calc Pharmacy 23.4 ml/min; Est GFR (African American) 30.1 ml/min; Est GFR (Non-African American) 25.9 ml/min; Magnesium 2.2 mg/dl (1.7-2.4); Phosphorus 4.7 mg/dl (2.5-4.9); Potassium 4.5 mmol/L (3.5-5.1)
[2021-12-07 02:45] LABS: Acanthocytes 1+; Echinocytes 2+; Immature Granulocytes # (auto) 0.02 K/uL (0.00-0.02); Immature Granulocytes % (auto) 0.3 %; Lymphocytes # (auto) 0.27 K/uL (1.2-3.4); Lymphocytes % (auto) 3.9 %; Monocytes # (auto) 0.07 K/uL (0.24-0.82); Neutrophils # (auto) 6.56 K/uL (1.4-6.5); Neutrophils % (auto) 94.8 %; Polychromasia 1+
--- NOTE | 2021-12-07 08:11 | XRay Report ---
XR chest 1V portable HISTORY: Shortness of breath. Follow-up. COMPARISON: Chest 12/06/2021. FINDINGS: The heart remains enlarged. There is mild interstitial pulmonary edema and small bilateral pleural effusions. This remains unchanged. No pneumothorax. Left basilar densities persist. IMPRESSION: No significant change in the cardiomegaly, mild interstitial pulmonary edema, and small bilateral ple ural effusions. ACT 112: Negative or not required by law. Electronically signed by: Boy Tidwell M.D. 12/07/2021 8:10 AM
[2021-12-07] MEDS ORDERED: FUROSEMIDE 40 MG/4 ML VIAL IV ONE (08:21)
[2021-12-07] MEDS: CALCIUM 600MG + VIT D 400 IU TAB PO SCH (09:57)
[2021-12-07] MEDS: GABAPENTIN 400 MG CAP PO SCH ×2 (09:58→20:35)
[2021-12-07] MEDS: hydrALAZINE TAB 50 MG TAB PO SCH ×3 (09:58→20:35)
[2021-12-07] MEDS: ADVANCED PROBIOTIC 1250 MG CAPSULE PO SCH (09:58)
[2021-12-07] MEDS: predniSONE 20 MG TAB PO SCH (09:58)
[2021-12-07] MEDS: rOPINIRole HCL 0.25 MG TABLET PO SCH ×2 (09:58→20:35)
[2021-12-07] MEDS: PANTOprazole 40 MG TAB PO SCH (09:58)
[2021-12-07] MEDS: MULTIVITAMIN TAB PO SCH (09:58)
--- NOTE | 2021-12-07 11:34 | Hospitalist Progress Note ---
Date of Service December 07, 2021 Assessment & Plan (1) Hypoxia: Plan: - admit to tele - pt saturating 91% RA, but dyspneic with conversation, was placed on 2L - obtain echocardiogram - normal EF, in afib - consulted cardiology - daily weights, low sodium, heart healthy diet - CHF likely playing role - continues on lasix and amio drip per Cardiology - now held s/p unsuccessful attempted DC cardioversion 12/06/2021 - continue rate control - more hypoxic and short of breath after procedure with increasing oxygen requirements - possible aspiration pneumonitis in the setting of sedation for cardioversion vs developing pneumonia - hgb stable, WBC stable - CXR with worsening right sided opacities, bilateral pleural effusions - started on empiric abx with vanc and cefepime - vanc d/c with negative MRSA nares - started on prednisone daily - ICU consulted and accepted patient now on HFNC - wean as tolerated (2) CHF (congestive heart failure): Plan: - see above (3) Atrial fibrillation: Plan: - rate controlled - on diltiazem, amiodarone and eliquis - pt states normally she is in NSR - s/p unsuccessful cardioversions 12/06/2021 - continue rate control - follow up cards for further recs (4) HTN (hypertension): Plan: - bp controlled in ED - continue coreg, hydralazine, diltiazem (5) CKD (chronic kidney disease): Plan: - baseline cr 1.6-1.8 per PCP office - initially thought to possibly be Acute kidney injury but likely just baseline CKD - obtaining records from PCP - per pt, she is scheduled to see nephro on 12/16 to establish care - monitor renal fxn given diuresis - holding diuresis given bump in creatinine to 2.1, Na 127 (6) Anemia: Plan: - stable, no signs of bleeding - monitor for now (7) Celiac disease: Plan: dapsone prn, GF diet (8) Chronic low back pain: Plan: previous L hip replacement, XR ordered pt states she follows ortho in [place], they feel it is likely bursitis PT/OT when able on apap-codeine prn, gabapentin - x-ray without pathology or abnormality in hip arthroplasties (9) RLS (restless legs syndrome): Plan: continue require and neupro patch Plan DVT ppx: Eliquis FULL CODE - discussed with patient at bedside Dispo: PCU Pt lives alone in [place] in 1st floor setup with 2 steps to enter, typically independent of adls/iadls, here visiting in [place] with Daughter in law PCP: Sonal Bender, [employer] [facility] [place], [place] Daniel Kraft [facility] Medicine Admission and Anticipated Discharge Date Admission Date: December 04, 2021 Subjective Patient with Afib on AC, CHF, chronic pain, h/o right breast CA s/p lumpectomy and radiation, RLS, neuropathy, MVP, GERD, CKD who presented for shortness of breath, found to be in CHF exacerbation and afib. Started on amiodarone drip and IV lasix per Cardiology with improvement. Amio being managed by Cardiology, now s/p attempted DC cardioversion x2 12/06/2021 without success, patient remained in rate controlled afib. 12/06/2021 after Cardioversion attempt, patient developed worsening respiratory failure and right lung opacity on CXR requiring empiric abx and steroids for pneumonitis vs pneumonia. ICU consulted for worsened respiratory status requiring HFNC and transfer to ICU. Patient transferred to ICU yesterday evening 12/06/2021 for worsening respiratory failure due to hypoxia, placed on HFNC and started on abx and steroids. Feels somewhat better this morning on HFNC and breathing is somewhat improved. She denies chest pain, cough, n/v/d, light headedness. Review of Systems Review of Systems: All systems reviewed & are unremarkable except as noted in Subjective Physical Exam Physical Exam: Constitutional: WD/WN, Elderly F, vitals as above, tachypneic with conversation, NAD, sitting up in bed, pleasant Head: Normocephalic, Atraumatic Eyes: PERRL, conjunctivae normal, anicteric sclerae ENMT: external ear and nose normal, oropharynx normal Neck: trachea midline, no thyromegaly normal visual inspection Respiratory: increased respiratory effort, + tachypnea but improved from yesterday, crackles in RLL, no rales, rhonchi. Cardiovascular: tachycardia, Irregular rhythm, no murmur appreciated, no LE edema Vessels: no JVD or carotid bruit Chest: normal inspection of chest Abdomen: normal bowel sounds, soft, nontender, no hepatosplenomegaly Musculoskeletal: no cyanosis or clubbing, AROM x 4 Skin: no rashes, warm and dry normal turgor Neurologic: PERRL, EOMI, accommodation nl, no face palsy, no dysarthria CN's II-XI intact bilaterally and moves all extremities Psychiatric: A+Ox3, euthymic affect Lymphatic: no cervical or axillary lymphadenopath Results & Data Results & Data ([facility]) Vital Signs (Past 12 Hours) Vital Signs Temp Pulse Pulse Resp BP Pulse Ox O2 Del Method 12/07/21 08:21 High Flow Nasal Cannula 12/07/21 07:40 98 H 20 98 High Flow Nasal Cannula 12/07/21 06:00 36.3 C L 87 14 98 12/07/21 06:00 119/69 12/07/21 05:30 36.3 C L 76 16 99 High Flow Nasal Cannula 12/07/21 03:28 93 H 15 98 High Flow Nasal Cannula 12/07/21 05:00 36.4 C L 90 16 97 12/07/21 05:00 117/63 12/07/21 04:30 36.6 C 100 H 15 97 High Flow Nasal Cannula 12/07/21 04:00 36.7 C 84 15 98 High Flow Nasal Cannula 12/07/21 04:00 112/63 12/07/21 03:30 36.9 C 94 H 15 98 12/07/21 03:00 37.0 C 92 H 16 98 12/07/21 03:00 114/80 12/07/21 02:30 37.0 C 100 H 19 97 12/07/21 02:00 37.0 C 96 H 19 97 12/07/21 02:00 151/73 H 12/07/21 01:30 37.0 C 94 H 16 99 12/07/21 01:00 37.0 C 100 H 18 98 12/07/21 01:00 134/76 12/07/21 00:30 37.1 C 86 16 98 12/07/21 00:00 37.1 C 100 H 18 98 12/07/21 00:00 145/81 H 12/07/21 01:50 105 H 22 96 High Flow Nasal Cannula 12/06/21 23:30 95 H 17 97 12/06/21 23:57 103 H 12/06/21 23:50 37.1 C 90 19 98 CPAP 12/06/21 23:40 37.1 C 96 H 16 98 12/06/21 23:30 37.2 C 101 H 18 98 O2 Flow Rate FiO2 12/07/21 08:21 25 0.4 12/07/21 07:40 30 50 12/07/21 06:00 12/07/21 06:00 12/07/21 05:30 30 50 12/07/21 03:28 30 50 12/07/21 05:00 12/07/21 05:00 12/07/21 04:30 30 55 12/07/21 04:00 30 55 12/07/21 04:00 12/07/21 03:30 12/07/21 03:00 12/07/21 03:00 12/07/21 02:30 12/07/21 02:00 12/07/21 02:00 12/07/21 01:30 12/07/21 01:00 12/07/21 01:00 12/07/21 00:30 12/07/21 00:00 12/07/21 00:00 12/07/21 01:50 30 55 12/06/21 23:30 55 12/06/21 23:57 12/06/21 23:50 55 12/06/21 23:40 12/06/21 23:30 Laboratory Results Short CBC 12/06/21 12/07/21 Range/Units 20:24 01:54 WBC 8.59 6.92 (4.8-10.8) K/ul Hgb 9.4 L 9.1 L (12.0-16.0) g/dl Hct 28.0 L 27.2 L (34.1-44.9) % Plt Count 351 365 (130-400) K/uL BMP 12/06/21 12/07/21 20:24 01:54 Sodium 125 L 125 L Potassium 4.7 4.5 Chloride 92 L 93 L Carbon Dioxide 22 21 BUN 41 H 42 H Creatinine 1.95 H 1.80 H Glucose 132 H 165 H Calcium 8.7 8.7 Diagnostic Findings Chest X-Ray 12/07/21 07:00 XR chest 1V portable HISTORY: Shortness of breath. Follow-up. COMPARISON: Chest 12/06/2021. FINDINGS: The heart remains enlarged. There is mild interstitial pulmonary edema and small bilateral pleural effusions. This remains unchanged. No pneumothorax. Left basilar densities persist. IMPRESSION: No significant change in the cardiomegaly, mild interstitial pulmonary edema, and small bilateral pleural effusions. ACT 112: Negative or not required by law. Electronically signed by: Boy Tidwell M.D. 12/07/2021 8:10 AM Medications Administered Current Inpatient Medications Acetaminophen (Acetaminophen 325 Mg Tab) 650 mg PO Q4H PRN PRN Reason: Pain or Fever Stop: 01/02/22 16:23 Last Admin: 12/04/21 10:32 Dose: 650 mg Acetaminophen/Codeine Phosphate (Acetaminophen W/Codeine #3 1 Tab) 1 tab PO Q6H PRN PRN Reason: Pain Stop: 01/02/22 16:23 Last Admin: 12/07/21 01:45 Dose: 1 tab Al Hydrox/Mg Hydrox/Simethicone (Aluminum/Magnesium Susp 30 Ml Udc) 15 ml PO Q4H PRN PRN Reason: Dyspepsia Stop: 01/02/22 16:23 Apixaban (Apixaban 2.5 Mg Tab) 2.5 mg PO BID [facility] Stop: 01/02/22 20:59 Last Admin: 12/06/21 06:55 Dose: 2.5 mg Carvedilol (Carvedilol 12.5 Mg Tab) 12.5 mg PO BIDM [facility] Stop: 01/02/22 16:59 Last Admin: 12/06/21 17:48 Dose: 12.5 mg Diltiazem HCl (Diltiazem Hcl 240 Mg Capcr) 240 mg PO DAILY [facility] Stop: 01/03/22 08:59 Last Admin: 12/05/21 08:33 Dose: 240 mg Gabapentin (Gabapentin 400 Mg Cap) 400 mg PO BID [facility]; Protocol Stop: 01/02/22 20:59 Last Admin: 12/07/21 09:58 Dose: 400 mg Hydralazine HCl (Hydralazine Tab 50 Mg Tab) 50 mg PO TID [facility] Stop: 01/02/22 20:59 Last Admin: 12/07/21 09:58 Dose: 50 mg Promethazine HCl 6.25 mg/ (Sodium Chloride) 50.25 mls @ 201 mls/hr IV Q6H PRN PRN Reason: Nausea And Vomiting Stop: 01/02/22 16:23 Last Infusion: 12/04/21 10:48 Dose: Infused Cefepime HCl 2,000 mg/ Syringe 20 mls @ 5 mls/min IV Q24H [facility]; Protocol Stop: 12/13/21 14:59 Last Admin: 12/06/21 15:46 Dose: 5 mls/min Lactobacillus Acidophilus (Advanced Probiotic 1250 Mg Capsule) 2 cap PO DAILY [facility] Stop: 01/03/22 08:59 Last Admin: 12/07/21 09:58 Dose: 2 cap Multivitamins (Multivitamin Tab) 2 tab PO DAILY [facility] Stop: 01/03/22 08:59 Last Admin: 12/07/21 09:58 Dose: 2 tab Multivitamins/Minerals (Calcium 600mg + Vit D 400 Iu Tab) 1 tab PO DAILY [facility] Stop: 01/03/22 08:59 Last Admin: 12/07/21 09:57 Dose: 1 tab Pantoprazole Sodium (Pantoprazole 40 Mg Tab) 40 mg PO DAILY [facility]; Protocol Stop: 01/03/22 08:59 Last Admin: 12/07/21 09:58 Dose: 40 mg Polyethylene Glycol (Polyethylene (Miralax) 17 Gm Pack) 17 gm PO DAILY PRN PRN Reason: Constipation Stop: 01/02/22 16:23 Potassium Chloride (Potassium Chloride Crtab 20 Meq Tabcr) 20 meq PO QAM [facility] Stop: 01/03/22 08:59 Last Admin: 12/05/21 08:33 Dose: 20 meq Prednisone (Prednisone 20 Mg Tab) 20 mg PO DAILY [facility] Stop: 01/06/22 08:59 Last Admin: 12/07/21 09:58 Dose: 20 mg Ropinirole HCl (Ropinirole Hcl 0.25 Mg Tablet) 0.25 mg PO BID [facility] Stop: 01/03/22 20:59 Last Admin: 12/07/21 09:58 Dose: 0.25 mg Rotigotine (Rotigotine Patch 1 Mg/24 Hours *Patients Own Med*) 1 patch TD QD [facility] Stop: 01/03/22 14:59 Last Admin: 12/06/21 15:29 Dose: 1 patch (1) CHF (congestive heart failure) Heart failure type: diastolic Heart failure chronicity: acute Qualified Code(s): I50.31 - Acute diastolic (congestive) heart failure (2) Atrial fibrillation Atrial fibrillation type: unspecified chronic Qualified Code(s): I48.20 - Chronic atrial fibrillation, unspecified (3) HTN (hypertension) Hypertension type: unspecified Qualified Code(s): I10 - Essential (primary) hypertension
--- NOTE | 2021-12-07 12:06 | Cardiology Progress Note ---
Date of Service December 07, 2021 Assessment & Plan (1) Acute on chronic heart failure with preserved ejection fraction (HFpEF): Plan: * Patient received 40 mg IV furosemide plus extra 20 mg IV x 1 on 12/05 and creatinine increased from 1.58--> 1.83--> 2.12. * Cardioversion attempted 12/06, unsuccessful x 2 shocks * Continue rate control strategy with carvedilol and diltiazem resumed 12/06/2021 * Eliquis held by pulmonary medicine due to concerns regarding possible pul monary hemorrhage (2) Atrial fibrillation: Plan: * Heart rates are reasonable in the setting of ongoing respiratory insufficiency (3) Dyspnea: Plan: * Given lack of improvement with breathing with escalated furosemide and worsening creatinine and new CXR findings of right lower lung opacity , question if pneumonia also playing a role with infiltrate showing up late . * Continue antibiotics per internal medicine and pulmonary. (4) EL (acute kidney injury): Plan: * as described above. * Hold furosemide * Creatinine trending downward, repeat BMP in a.m. DVT prophylaxis: Continue Eliquis. Admission and Anticipated Discharge Date Admission Date: December 04, 2021 Subjective Patient seen examined the bedside. Resting comfortably. Fluid balance mildly negative. Remains hyponatremic, creatinine trending downward. Diuretic therapy on hold. Review of Systems Review of Systems: All systems reviewed & are unremarkable except as noted in Subjective Physical Exam Constitutional: + ill appearing Respiratory: no respiratory distress Auscultation: + diminished lung sounds (Bases bilateral); no rales and no wheezes Cardiovascular: Rate/Rhythm: + irregularly irregular Heart Sounds: normal S1 and normal S2; no murmur Vessels: radial pulses present; no JVD Extremities: no edema Gastrointestinal (Abdomen): Inspection/Auscultation: normal bowel sounds; abdomen not distended Percussion/Palpation: abdomen soft; abdomen nontender, no guarding and abdomen not rigid Neurologic: CN's II-XI intact bilaterally and moves all extremities; no focal motor deficits Results & Data ([facility]) Vital Signs (Past 12 Hours) Vital Signs Temp Pulse Pulse Resp BP Pulse Ox O2 Del Method 12/07/21 08:21 High Flow Nasal Cannula 12/07/21 07:40 98 H 20 98 High Flow Nasal Cannula 12/07/21 06:00 36.3 C L 87 14 98 09/17/22 06:00 119/69 12/07/21 05:30 36.3 C L 76 16 99 High Flow Nasal Cannula 12/07/21 03:28 93 H 15 98 High Flow Nasal Cannula 12/07/21 05:00 36.4 C L 90 16 97 12/07/21 05:00 117/63 12/07/21 04:30 36.6 C 100 H 15 97 High Flow Nasal Cannula 12/07/21 04:00 36.7 C 84 15 98 High Flow Nasal Cannula 12/07/21 04:00 112/63 12/07/21 03:30 36.9 C 94 H 15 98 12/07/21 03:00 37.0 C 92 H 16 98 12/07/21 03:00 114/80 12/07/21 02:30 37.0 C 100 H 19 97 12/07/21 02:00 37.0 C 96 H 19 97 12/07/21 02:00 151/73 H 12/07/21 01:30 37.0 C 94 H 16 99 12/07/21 01:00 37.0 C 100 H 18 98 12/07/21 01:00 134/76 12/07/21 00:30 37.1 C 86 16 98 12/07/21 01:50 105 H 22 96 High Flow Nasal Cannula O2 Flow Rate FiO2 12/07/21 08:21 25 0.4 12/07/21 07:40 30 50 12/07/21 06:00 12/07/21 06:00 12/07/21 05:30 30 50 12/07/21 03:28 30 50 12/07/21 05:00 12/07/21 05:00 12/07/21 04:30 30 55 12/07/21 04:00 30 55 12/07/21 04:00 12/07/21 03:30 12/07/21 03:00 12/07/21 03:00 12/07/21 02:30 12/07/21 02:00 12/07/21 02:00 12/07/21 01:30 12/07/21 01:00 12/07/21 01:00 12/07/21 00:30 12/07/21 01:50 30 55 (1) Atrial fibrillation Atrial fibrillation type: unspecified chronic Qualified Code(s): I48.20 - Chronic atrial fibrillation, unspecified
--- NOTE | 2021-12-07 12:26 | Critical Care Progress Note ---
Date of Service December 07, 2021 Assessment & Plan (1) Acute on chronic heart failure with preserved ejection fraction (HFpEF): (2) Acute respiratory failure with hypoxia: (3) Acute dyspnea: (4) Atrial fibrillation with RVR: (5) Acute hyponatremia: Plan 81-year-old female with a past medical history of atrial fibrillation on Eliquis, CKD stage III and chronic anemia presenting to the hospital due to increasing shortness of breath. She underwent a cardioversion today and re mained in persistent atrial fibrillation. She subsequently had increasing hypoxemia and was transferred to the ICU. She is currently on high flow oxygen. Neurologic: Avoid sedating agents. No evidence of delirium. Pulmonary: Oxygen requirements improving with diuresis and low-dose prednisone. Pneumonitis remains a possibility from amiodarone, but less likely. Alveolar hemorrhage very unlikely at this point. No hemoptysis. Hemoglobin stable. CT chest reviewed with mixed groundglass findings consistent with possible pneumonitis and or atypical pulmonary edema. Wean high flow as able. CPAP at night. Cardiovascular: Troponin negative. Cardiology consultation appreciated. Patient failed cardioversion yesterday. Echo findings without systolic heart failure. Suspect element of diastolic disease. Rate control agents per cardiology. Restart Eliquis. Gastrointestinal: Advance diet as tolerated. Renal: EL on CKD stage III. Creatinine mildly improved today. IV 40 mg Lasix given with improved urine output. Sodium decreased to 125. Repeat BMP now. Infectious disease: Procalcitonin and bio fire negative. MRSA screen negative. Cefepime to be continued at this time. Hematologic: Restart Eliquis. Hemoglobin stable. Anemia of chronic disease noted. Endocrine: TSH within normal limits. Monitor glucose closely. VTE prophylaxis: Hold Eliquis. SCDs. CODE STATUS: Full code Family at bedside: Discussed with son at bedside. Disposition: Okay to transfer to PCU status if sodium levels improved or remained stable. Admission and Anticipated Discharge Date Admission Date: December 04, 2021 Subjective Patient seen and examined. Shortness of breath significantly improved. Oxygen requirements improved. Review of Systems Review of Systems: All systems reviewed & are unremarkable except as noted in HPI & below Physical Exam Physical Exam: Constitutional: Elderly appearing female in moderate distress. Eyes: Pupils are equal round and reactive to light. Conjunctivae are normal. Anicteric sclera. Ears nose, mouth and throat: Mallampati class 2. Normal posterior oropharynx. Uvula is midline. Neck: Trachea is midline. Visual inspection is normal. Respiratory: Mild crackles bilaterally. Increased tachypnea. Cardiovascular: Regular rate and rhythm. No murmurs. No edema. Gastrointestinal: Normal bowel sounds, soft, nontender and nondistended. No hepatosplenomegaly noted. Musculoskeletal: No cyanosis. Patient is able to move all extremities. St rength is 5 out of 5 in the upper and lower extremities. Skin: No rashes, warm dry and intact. Neurologic: No obvious focal neurological deficits seen. Psychiatric: Alert and oriented x3 with a euthymic affect. Results & Data Results & Data ([facility]) Vital Signs (Past 12 Hours) Vital Signs Temp Pulse Pulse Resp BP Pulse Ox O2 Del Method 12/07/21 08:21 High Flow Nasal Cannula 12/07/21 07:40 98 H 20 98 High Flow Nasal Cannula 12/07/21 06:00 36.3 C L 87 14 98 12/07/21 06:00 119/69 12/07/21 05:30 36.3 C L 76 16 99 High Flow Nasal Cannula 12/07/21 03:28 93 H 15 98 High Flow Nasal Cannula 12/07/21 05:00 36.4 C L 90 16 97 12/07/21 05:00 117/63 12/07/21 04:30 36.6 C 100 H 15 97 High Flow Nasal Cannula 12/07/21 04:00 36.7 C 84 15 98 High Flow Nasal Cannula 12/07/21 04:00 112/63 12/07/21 03:30 36.9 C 94 H 15 98 12/07/21 03:00 37.0 C 92 H 16 98 12/07/21 03:00 114/80 12/07/21 02:30 37.0 C 100 H 19 97 12/07/21 02:00 37.0 C 96 H 19 97 12/07/21 02:00 151/73 H 12/07/21 01:30 37.0 C 94 H 16 99 12/07/21 01:00 37.0 C 100 H 18 98 12/07/21 01:00 134/76 12/07/21 00:30 37.1 C 86 16 98 12/07/21 01:50 105 H 22 96 High Flow Nasal Cannula O2 Flow Rate FiO2 12/07/21 08:21 25 0.4 12/07/21 07:40 30 50 12/07/21 06:00 12/07/21 06:00 12/07/21 05:30 30 50 12/07/21 03:28 30 50 12/07/21 05:00 12/07/21 05:00 12/07/21 04:30 30 55 12/07/21 04:00 30 55 12/07/21 04:00 12/07/21 03:30 12/07/21 03:00 12/07/21 03:00 12/07/21 02:30 12/07/21 02:00 12/07/21 02:00 12/07/21 01:30 12/07/21 01:00 12/07/21 01:00 12/07/21 00:30 12/07/21 01:50 30 55 Coding Level of Care Code 58069 Subseq Hosp Care Lvl 3 Diagnoses Acute on chronic heart failure with preserved ejection fraction (HFpEF) I50.33 Acute respiratory failure with hypoxia J96.01 Acute dyspnea R06.00 Atrial fibrillation with RVR I48.91 Acute hyponatremia E87.1
[2021-12-07 13:23] LABS: BUN Creatinine Ratio 26.8 (10-20); Calcium 8.8 mg/dl (8.5-10.1); Creatinine Clr Calc Pharmacy 25.4 ml/min; Est GFR (African American) 32.7 ml/min; Est GFR (Non-African American) 28.2 ml/min; Potassium 4.5 mmol/L (3.5-5.1)
[2021-12-07] MEDS: carvediloL 12.5 MG TAB PO SCH ×2 (13:40→18:02)
--- NOTE | 2021-12-07 13:51 | Electrocardiogram Report ---
Test Reason : Blood Pressure : / mmHG Vent. Rate : 108 BPM Atrial Rate : 115 BPM P-R Int : 000 ms QRS Dur : 082 ms QT Int : 352 ms P-R-T Axes : 000 062 089 degrees QTc Int : 471 ms Poor data quality, interpretation may be adversely affected Atrial fibrillation with rapid ventricular response Abnormal ECG When compared with ECG of 06-DEC-2021 07:38, No significant change was found Confirmed by Amadou Cifuentes ([id number]) on 12/07/2021 1:51:33 PM Referred By: REFERRED SELF Confirmed By:Amadou Cifuentes
[2021-12-07] MEDS: ROTIGOTINE 1 MG/24 HR TD SCH (16:33)
[2021-12-07] MEDS: CEFEPIME 2,000 MG in SYRINGE 0 ML IV SCH (16:34)
[2021-12-07] MEDS: APIXABAN 2.5 MG TAB PO SCH (20:35)
[2021-12-07] MEDS: MELATONIN 3 MG TAB PO PRN (21:59)
[2021-12-08 05:28] LABS: BUN Creatinine Ratio 27.9 (10-20); Calcium 8.6 mg/dl (8.5-10.1); Creatinine Clr Calc Pharmacy 21.8 ml/min; Est GFR (Non-African American) 23.3 ml/min; Magnesium 2.5 mg/dl (1.7-2.4); Phosphorus 4.6 mg/dl (2.5-4.9); Potassium 4.3 mmol/L (3.5-5.1)
[2021-12-08] MEDS: carvediloL 12.5 MG TAB PO SCH ×2 (07:46→16:55)
[2021-12-08] MEDS: ADVANCED PROBIOTIC 1250 MG CAPSULE PO SCH (07:47)
[2021-12-08] MEDS: rOPINIRole HCL 0.25 MG TABLET PO SCH ×2 (07:47→20:27)
[2021-12-08] MEDS: GABAPENTIN 400 MG CAP PO SCH ×2 (07:47→20:30)
[2021-12-08] MEDS: CALCIUM 600MG + VIT D 400 IU TAB PO SCH (07:47)
[2021-12-08] MEDS: hydrALAZINE TAB 50 MG TAB PO SCH ×3 (07:48→20:28)
[2021-12-08] MEDS: predniSONE 20 MG TAB PO SCH (07:48)
[2021-12-08] MEDS: MULTIVITAMIN TAB PO SCH (07:48)
[2021-12-08] MEDS: PANTOprazole 40 MG TAB PO SCH (07:49)
[2021-12-08] MEDS: APIXABAN 2.5 MG TAB PO SCH ×2 (07:49→20:30)
--- NOTE | 2021-12-08 10:21 | Hospitalist Progress Note ---
Date of Service December 08, 2021 Assessment & Plan (1) Hypoxia: Plan: - admit to tele - pt saturating 91% RA, but dyspneic with conversation, was placed on 2L - obtain echocardiogram - normal EF, in afib - consulted cardiology - daily weights, low sodium, heart healthy diet - CHF likely playing role - continues on lasix and amio drip per Cardiology - now held s/p unsuccessful attempted DC cardioversion 12/06/2021 - continue rate control - CXR with worsening right sided opacities, bilateral pleural effusions - continue on cefepime - continue prednisone daily for total of 5 days - ok to downgrade to PCU for now - now on 2L NC with improvement in respiratory status - continue abx and steroids as above, hold lasix today given Cr bump - wean O2 as tolerated (2) CHF (congestive heart failure): Plan: - see above (3) Atrial fibrillation: Plan: - rate controlled - on diltiazem, amiodarone and eliquis - pt states normally she is in NSR - s/p unsuccessful cardioversions 12/06/2021 - continue rate control - follow up cards for further recs (4) HTN (hypertension): Plan: - bp controlled in ED - continue coreg, hydralazine, diltiazem - dilt resumed today for better rate control (5) CKD (chronic kidney disease): Plan: - baseline cr 1.6-1.8 per PCP office - initially thought to possibly be Acute kidney injury but likely just baseline CKD - obtaining records from PCP - per pt, she is scheduled to see nephro on 12/16 to establish care - monitor renal fxn given diuresis - holding diuresis given bump in creatinine to 2.1, Na 127 (6) Anemia: Plan: - stable, no signs of bleeding - monitor for now (7) Celiac disease: Plan: dapsone prn, GF diet (8) Chronic low back pain: Plan: previous L hip replacement, XR ordered pt states she follows ortho in [place], they feel it is likely bursitis PT/OT when able on apap-codeine prn, gabapentin - x-ray without pathology or abnormality in hip arthroplasties (9) RLS (restless legs syndrome): Plan: continue require and neupro patch Plan DVT ppx: Eliquis FULL CODE - discussed with patient at bedside Dispo: PCU Pt lives alone in [place], [place] in 1st floor setup with 2 steps to enter, typically independent of adls/iadls, here visiting in [place] with Daughter in law PCP: GABBI Corral Bar[place], [place] [facility] Medicine Admission and Anticipated Discharge Date Admission Date: December 04, 2021 Subjective Patient with Afib on AC, CHF, chronic pain, h/o right breast CA s/p lumpectomy and radiation, RLS, neuropathy, MVP, GERD, CKD who presented for shortness of breath, found to be in CHF exacerbation and afib. Started on amiodarone drip and IV lasix per Cardiology with improvement. Amio being managed by Cardiology, now s/p attempted DC cardioversion x2 12/06/2021 without success, patient remained in rate controlled afib. 12/06/2021 after Cardioversion attempt, patient developed worsening respiratory failure and right lung opacity on CXR requiring empiric abx and steroids for pneumonitis vs pneumonia. ICU consulted for worsened respiratory status requiring HFNC and transfer to ICU. Patient now off HFNC and on 2L NC tolerating well. She feels much better and shortness of breath has improved. Having an intermittent cough with some sputum production. She denies chest pain, n/v/d, light headedness. Review of Systems Review of Systems: All systems reviewed & are unremarkable except as noted in Subjective Physical Exam Physical Exam: Constitutional: WD/WN, Elderly F, vitals as above, tachypneic with conversation, NAD, sitting up in bed, pleasant Head: Normocephalic, Atraumatic Eyes: PERRL, conjunctivae normal, anicteric sclerae ENMT: external ear and nose normal, oropharynx normal Neck: trachea midline, no thyromegaly normal visual inspection Respiratory: increased respiratory effort, tachypnea much improved, crackles in RLL but decreased, no rales, rhonchi. Cardiovascular: regular rate, Irregular rhythm, no murmur appreciated, no LE edema Vessels: no JVD or carotid bruit Chest: normal inspection of chest Abdomen: normal bowel sounds, soft, nontender, no hepatosplenomegaly Musculoskeletal: no cyanosis or clubbing, AROM x 4 Skin: no rashes, warm and dry normal turgor Neurologic: PERRL, EOMI, accommodation nl, no face palsy, no dysarthria CN's II-XI intact bilaterally and moves all extremities Psychiatric: A+Ox3, euthymic affect Lymphatic: no cervical or axillary lymphadenopath Results & Data Results & Data ([facility]) Vital Signs (Past 12 Hours) Vital Signs Temp Pulse Resp BP Pulse Ox O2 Del Method O2 Flow Rate 12/08/21 08:00 Nasal Cannula 2 12/08/21 06:00 36.4 C L 94 H 25 H 97 12/08/21 06:00 114/78 12/08/21 05:30 36.4 C L 95 H 15 97 12/08/21 05:00 36.4 C L 93 H 28 H 96 CPAP 5 12/08/21 04:30 36.2 C L 90 17 96 12/08/21 04:00 120/56 L 12/08/21 03:50 36.1 C L 93 H 17 97 12/08/21 02:30 36.0 C L 80 34 H 97 12/08/21 02:00 36.1 C L 84 21 96 12/08/21 02:00 101/57 L 12/08/21 01:30 36.2 C L 78 19 97 12/08/21 01:00 36.3 C L 85 23 95 CPAP 5 12/08/21 00:30 36.3 C L 94 H 16 97 12/08/21 00:00 36.4 C L 84 15 95 12/08/21 00:00 95/53 L 12/07/21 23:30 36.5 C 90 15 95 12/07/21 23:28 81 12/07/21 23:00 36.6 C 91 H 16 96 12/07/21 22:30 36.8 C 89 16 98 Laboratory Results [facility] 12/07/21 12/08/21 12:46 04:43 Sodium 128 L 130 L Potassium 4.5 4.3 Chloride 94 L 96 L Carbon Dioxide 24 23 BUN 45 H 55 H Creatinine 1.68 H 1.97 H Glucose 159 H 115 H Calcium 8.8 8.6 Diagnostic Findings reviewed Medications Administered Current Inpatient Medications Acetaminophen (Acetaminophen 325 Mg Tab) 650 mg PO Q4H PRN PRN Reason: Pain or Fever Stop: 01/02/22 16:23 Last Admin: 12/04/21 10:32 Dose: 650 mg Acetaminophen/Codeine Phosphate (Acetaminophen W/Codeine #3 1 Tab) 1 tab PO Q6H PRN PRN Reason: Pain Stop: 01/02/22 16:23 Last Admin: 12/07/21 21:59 Dose: 1 tab Al Hydrox/Mg Hydrox/Simethicone (Aluminum/Magnesium Susp 30 Ml Udc) 15 ml PO Q4H PRN PRN Reason: Dyspepsia Stop: 01/02/22 16:23 Apixaban (Apixaban 2.5 Mg Tab) 2.5 mg PO BID [facility] Stop: 01/02/22 20:59 Last Admin: 12/08/21 07:49 Dose: 2.5 mg Carvedilol (Carvedilol 12.5 Mg Tab) 12.5 mg PO BIDM [facility] Stop: 01/02/22 16:59 Last Admin: 12/08/21 07:46 Dose: 12.5 mg Diltiazem HCl (Diltiazem Hcl 240 Mg Capcr) 240 mg PO DAILY [facility] Stop: 01/03/22 08:59 Last Admin: 12/05/21 08:33 Dose: 240 mg Gabapentin (Gabapentin 400 Mg Cap) 400 mg PO BID [facility]; Protocol Stop: 01/02/22 20:59 Last Admin: 12/08/21 07:47 Dose: 400 mg Hydralazine HCl (Hydralazine Tab 50 Mg Tab) 50 mg PO TID [facility] Stop: 01/02/22 20:59 Last Admin: 12/08/21 07:48 Dose: 50 mg Promethazine HCl 6.25 mg/ (Sodium Chloride) 50.25 mls @ 201 mls/hr IV Q6H PRN PRN Reason: Nausea And Vomiting Stop: 01/02/22 16:23 Last Infusion: 12/04/21 10:48 Dose: Infused Cefepime HCl 2,000 mg/ Syringe 20 mls @ 5 mls/min IV Q24H [facility]; Protocol Stop: 12/13/21 14:59 Last Admin: 12/07/21 16:34 Dose: 5 mls/min Lactobacillus Acidophilus (Advanced Probiotic 1250 Mg Capsule) 2 cap PO DAILY [facility] Stop: 01/03/22 08:59 Last Admin: 12/08/21 07:47 Dose: 2 cap Melatonin (Melatonin 3 Mg Tab) 3 mg PO HS PRN PRN Reason: Sleep Stop: 01/06/22 20:48 Last Admin: 12/07/21 21:59 Dose: 3 mg Multivitamins (Multivitamin Tab) 2 tab PO DAILY [facility] Stop: 01/03/22 08:59 Last Admin: 12/08/21 07:48 Dose: 2 tab Multivitamins/Minerals (Calcium 600mg + Vit D 400 Iu Tab) 1 tab PO DAILY [facility] Stop: 01/03/22 08:59 Last Admin: 12/08/21 07:47 Dose: 1 tab Pantoprazole Sodium (Pantoprazole 40 Mg Tab) 40 mg PO DAILY [facility]; Protocol Stop: 01/03/22 08:59 Last Admin: 12/08/21 07:49 Dose: 40 mg Polyethylene Glycol (Polyethylene (Miralax) 17 Gm Pack) 17 gm PO DAILY PRN PRN Reason: Constipation Stop: 01/02/22 16:23 Potassium Chloride (Potassium Chloride Crtab 20 Meq Tabcr) 20 meq PO QAM [facility] Stop: 01/03/22 08:59 Last Admin: 12/05/21 08:33 Dose: 20 meq Prednisone (Prednisone 20 Mg Tab) 20 mg PO DAILY [facility] Stop: 01/06/22 08:59 Last Admin: 12/08/21 07:48 Dose: 20 mg Ropinirole HCl (Ropinirole Hcl 0.25 Mg Tablet) 0.25 mg PO BID [facility] Stop: 01/03/22 20:59 Last Admin: 12/08/21 07:47 Dose: 0.25 mg Rotigotine (Rotigotine Patch 1 Mg/24 Hours *Patients Own Med*) 1 patch TD QD [facility] Stop: 01/03/22 14:59 Last Admin: 12/07/21 16:33 Dose: Not Given (1) CHF (congestive heart failure) Heart failure chronicity: acute Heart failure type: diastolic Qualified Code(s): I50.31 - Acute diastolic (congestive) heart failure (2) Atrial fibrillation Atrial fibrillation type: unspecified chronic Qualified Code(s): I48.20 - Chronic atrial fibrillation, unspecified (3) HTN (hypertension) Hypertension type: unspecified Qualified Code(s): I10 - Essential (primary) hypertension
[2021-12-08] MEDS ORDERED: FUROSEMIDE INJ 20 MG/2 ML VIAL IV ONE (10:53)
--- NOTE | 2021-12-08 10:57 | Pulmonology Progress Note ---
Date of Service December 08, 2021 Assessment & Plan (1) Acute on chronic heart failure with preserved ejection fraction (HFpEF): Plan: We will give an additional dose of IV Lasix 20 mg a day and then have the nurse remove the Gonzalez catheter. (2) Acute respiratory failure with hypoxia: Plan: Improving significantly. Possible combination of pneumonitis, pneumonia and CHF. Discontinue prednisone after 7 days. Treat empirically with antibiotics for 7-day total course. Recommend repeating a chest x-ray in about 7 days to ensure clearance of infiltrates which can be done at the PCP office. (3) Acute dyspnea: Plan: Resolving. (4) Atrial fibrillation with RVR: Plan: Resolving. (5) Acute hyponatremia: Plan: Hyponatremia improved today, but remains mildly hyponatremic. Follow closely while diuresis. Defer further work-up to primary team. Plan No further intervention from pulmonology. Appreciate the consult. Please call with questions. Admission and Anticipated Discharge Date Admission Date: December 04, 2021 Subjective Patient seen and examined. Shortness of breath significantly improved. Oxygen requirements improved as well as currently saturating in the high 90s on 2 L of oxygen. Denies any fevers, chills or night sweats. Review of Systems Review of Systems: All systems reviewed & are unremarkable except as noted in HPI & below Physical Exam Physical Exam: Constitutional: Elderly appearing female in no apparent distress Eyes: Pupils are equal round and reactive to light. Conjunctivae are normal. Anicteric sclera. Ears nose, mouth and throat: Mallampati class 2. Normal posterior oropharynx. Uvula is midline. Neck: Trachea is midline. Visual inspection is normal. Respiratory: Mild crackles bilaterally. No significant tachypnea or increased work of breathing. Cardiovascular: Regular rate and rhythm. No murmurs. No edema. Gastrointestinal: Normal bowel sounds, soft, nontender and nondistended. No hepatosplenomegaly noted. Musculoskeletal: No cyanosis. Patient is able to move all extremities. Strength is 5 out of 5 in the upper and lower extremities. Skin: No rashes, warm dry and intact. Neurologic: No obvious focal neurological deficits seen. Psychiatric: Alert and oriented x3 with a euthymic affect. Results & Data Results & Data ([facility]) Vital Signs (Past 12 Hours) Vital Signs Temp Pulse Resp BP Pulse Ox O2 Del Method O2 Flow Rate 12/08/21 08:00 Nasal Cannula 2 12/08/21 06:00 36.4 C L 94 H 25 H 97 12/08/21 06:00 114/78 12/08/21 05:30 36.4 C L 95 H 15 97 12/08/21 05:00 36.4 C L 93 H 28 H 96 CPAP 5 12/08/21 04:30 36.2 C L 90 17 96 12/08/21 04:00 120/56 L 12/08/21 03:50 36.1 C L 93 H 17 97 12/08/21 02:30 36.0 C L 80 34 H 97 12/08/21 02:00 36.1 C L 84 21 96 12/08/21 02:00 101/57 L 12/08/21 01:30 36.2 C L 78 19 97 12/08/21 01:00 36.3 C L 85 23 95 CPAP 5 12/08/21 00:30 36.3 C L 94 H 16 97 12/08/21 00:00 36.4 C L 84 15 95 12/08/21 00:00 95/53 L 12/07/21 23:30 36.5 C 90 15 95 12/07/21 23:28 81 12/07/21 23:00 36.6 C 91 H 16 96 PG Care Time/CCT Total # of Minutes Spent Total Time Spent with Patient: Total time spent is greater than 50% in coordination of care (as documented) at patient's floor/unit and/or counseling patient: Coding Level of Care Code 89951 Subseq Hosp Care Lvl 3 Diagnoses Acute on chronic heart failure with preserved ejection fraction (HFpEF) I50.33 Acute respiratory failure with hypoxia J96.01 Acute dyspnea R06.00 Atrial fibrillation with RVR I48.91 Acute hyponatremia E87.1
[2021-12-08] MEDS: ACETAMINOPHEN W/CODEINE #3 1 TAB PO PRN ×2 (12:07→17:59)
--- NOTE | 2021-12-08 12:13 | Cardiology Progress Note ---
Date of Service December 08, 2021 Assessment & Plan (1) Acute on chronic heart failure with preserved ejection fraction (HFpEF): Plan: * Agree with low-dose Lasix today. Repeat basic metabolic panel in a.m. * Monitor daily weight, fluid balance, GFR, and electrolytes. * Cardioversion attempted 12/06, unsuccessful x 2 shocks * Continue rate control strategy with carvedilol and diltiazem resumed 12/06/2021 (2) Atrial fibrillation: Plan: * Reasonable rate control noted per telemetry * Eliquis restarted (briefly held due to concerns regarding pulmonary hemorrhage) (3) EL (acute kidney injury): Plan: * Elevated creatinine today, monitor daily BMP. (4) Acute respiratory failure with hypoxia: Plan: Antibiotics and corticosteroid treatment at per pulmonary medicine. Admission and Anticipated Discharge Date Admission Date: December 04, 2021 Subjective Patient seen examined the bedside. States "I feel much better today". Fluid balance -1.8 L, however, creatinine trending upward to 1.97. Received a dose of IV Lasix yesterday. Telemetry feels atrial fibrillation in the 80s. No new concerns/complaints. Review of Systems Review of Systems: All systems reviewed & are unremarkable except as noted in Subjective Physical Exam Constitutional: + ill appearing Respiratory: no respiratory distress Auscultation: + diminished lung sounds (Bases bilateral); no rales and no wheezes Cardiovascular: Rate/Rhythm: + irregularly irregular Heart Sounds: normal S1 and normal S2; no murmur Vessels: radial pulses present; no JVD Extremities: no edema Gastrointestinal (Abdomen): Inspection/Auscultation: normal bowel sounds; abdomen not distended Percussion/Palpation: abdomen soft; abdomen nontender, no guarding and abdomen not rigid Neurologic: CN's II-XI intact bilaterally and moves all extremities; no focal motor deficits Results & Data ([facility]) Vital Signs (Past 12 Hours) Vital Signs Temp Pulse Resp BP Pulse Ox O2 Del Method O2 Flow Rate 12/08/21 08:00 Nasal Cannula 2 12/08/21 06:00 36.4 C L 94 H 25 H 97 12/08/21 06:00 114/78 12/08/21 05:30 36.4 C L 95 H 15 97 12/08/21 05:00 36.4 C L 93 H 28 H 96 CPAP 5 12/08/21 04:30 36.2 C L 90 17 96 12/08/21 04:00 120/56 L 12/08/21 03:50 36.1 C L 93 H 17 97 12/08/21 02:30 36.0 C L 80 34 H 97 12/08/21 02:00 36.1 C L 84 21 96 12/08/21 02:00 101/57 L 12/08/21 01:30 36.2 C L 78 19 97 12/08/21 01:00 36.3 C L 85 23 95 CPAP 5 12/08/21 00:30 36.3 C L 94 H 16 97 (1) Atrial fibrillation Atrial fibrillation type: unspecified chronic Qualified Code(s): I48.20 - Chronic atrial fibrillation, unspecified
[2021-12-08] MEDS: CEFEPIME 2,000 MG in SYRINGE 0 ML IV SCH (14:30)
[2021-12-08] MEDS: ROTIGOTINE 1 MG/24 HR TD SCH (14:31)
[2021-12-08] MEDS: ACETAMINOPHEN 325 MG TAB PO PRN (22:20)
[2021-12-08] MEDS: MELATONIN 3 MG TAB PO PRN (22:20)
[2021-12-09 05:47] LABS: Basophils # (auto) 0.01 K/uL (0-0.2); Basophils % (auto) 0.1 %; Eosinophils # (auto) 0.01 K/uL (0-0.50); Eosinophils % (auto) 0.1 %; Hematocrit (blood only) 25.2 % (34.1-44.9); Hemoglobin 8.4 g/dl (12.0-16.0); Immature Granulocytes # (auto) 0.04 K/uL (0.00-0.02); Immature Granulocytes % (auto) 0.5 %; Lymphocytes # (auto) 0.88 K/uL (1.2-3.4); Lymphocytes % (auto) 11.7 %; Mean Corpuscular Hemoglobin 28.1 pg (25.0-34.0); Mean Corpuscular Hgb Conc 33.3 g/dL (32.0-36.0); Mean Corpuscular Volume 84.3 fL (80.0-100.0); Mean Platelet Volume 9.8 fL (9.4-12.3); Monocytes # (auto) 0.88 K/uL (0.24-0.82); Monocytes % (auto) 11.7 %; Neutrophils # (auto) 5.72 K/uL (1.4-6.5); Neutrophils % (auto) 75.9 %; Platelet Count 439 K/uL (130-400); RDW Coefficient of Variation 14.1 % (11.5-14.5); RDW Standard Deviation 43.8 fL (36.4-46.3); Red Blood Count 2.99 M/uL (3.93-5.22); White Blood Count 7.54 K/ul (4.8-10.8)
[2021-12-09 06:13] LABS: BUN Creatinine Ratio 27.4 (10-20); Calcium 8.5 mg/dl (8.5-10.1); Creatinine Clr Calc Pharmacy 18.1 ml/min; Est GFR (African American) 21.6 ml/min; Est GFR (Non-African American) 18.6 ml/min; Magnesium 2.6 mg/dl (1.7-2.4); Phosphorus 4.3 mg/dl (2.5-4.9); Potassium 4.3 mmol/L (3.5-5.1)
[2021-12-09] MEDS: GABAPENTIN 400 MG CAP PO SCH ×2 (09:14→20:51)
[2021-12-09] MEDS: MULTIVITAMIN TAB PO SCH (09:14)
[2021-12-09] MEDS: predniSONE 20 MG TAB PO SCH (09:14)
[2021-12-09] MEDS: dilTIAZem HCL 240 MG CAPCR PO SCH (09:15)
[2021-12-09] MEDS: CALCIUM 600MG + VIT D 400 IU TAB PO SCH (09:16)
[2021-12-09] MEDS: APIXABAN 2.5 MG TAB PO SCH ×2 (09:16→20:52)
[2021-12-09] MEDS: ADVANCED PROBIOTIC 1250 MG CAPSULE PO SCH (09:16)
[2021-12-09] MEDS: PANTOprazole 40 MG TAB PO SCH (09:16)
[2021-12-09] MEDS: rOPINIRole HCL 0.25 MG TABLET PO SCH ×2 (09:16→20:52)
[2021-12-09] MEDS: carvediloL 12.5 MG TAB PO SCH ×2 (09:16→17:40)
[2021-12-09] MEDS: hydrALAZINE TAB 50 MG TAB PO SCH ×3 (09:17→20:51)
[2021-12-09] MEDS: ACETAMINOPHEN W/CODEINE #3 1 TAB PO PRN ×2 (13:17→20:54)
--- NOTE | 2021-12-09 13:40 | Cardiology Progress Note ---
Date of Service December 09, 2021 Assessment & Plan (1) Acute on chronic heart failure with preserved ejection fraction (HFpEF): Plan: * Hold Lasix. * Repeat basic metabolic panel in a.m. * Monitor daily weight, fluid balance, GFR, and electrolytes. * Cardioversion attempted 12/06, unsuccessful x 2 shocks (2) Atrial fibrillation: Plan: * Reasonable rate control noted per telemetry * Eliquis restarted (briefly held due to concerns regarding pulmonary hemorrhage) * Continue Cardizem and carvedilol (3) EL (acute kidney injury): Plan: * Creatinine trending upward, hold diuretic therapy today (4) Acute respiratory failure with hypoxia: Plan: Antibiotics and corticosteroid treatment at per pulmonary medicine. Admission and Anticipated Discharge Date Admission Date: December 04, 2021 Subjective Patient seen examined the bedside. Feeling much better today. Respiratory status improved. Denies chest pain or shortness of breath. Telemetry reveals rate controlled atrial fibrillation. Creatinine trending upward after additional IV Lasix yesterday 12/08/2021. Review of Systems Review of Systems: All systems reviewed & are unremarkable except as noted in Subjective Physical Exam Constitutional: + ill appearing Respiratory: no respiratory distress Auscultation: + diminished lung sounds (Bases bilateral); no rales and no wheezes Cardiovascular: Rate/Rhythm: + irregularly irregular Heart Sounds: normal S1 and normal S2; no murmur Vessels: radial pulses present; no JVD Extremities: no edema Gastrointestinal (Abdomen): Inspection/Auscultation: normal bowel sounds; abdomen not distended Percussion/Palpation: abdomen soft; abdomen nontender, no guarding and abdomen not rigid Neurologic: CN's II-XI intact bilaterally and moves all extremities; no focal motor deficits Results & Data ([facility]) Vital Signs (Past 12 Hours) Vital Signs Temp Pulse Resp BP BP Pulse Ox O2 Del Method 12/09/21 11:00 145/79 H 12/09/21 07:46 Nasal Cannula 12/09/21 06:00 36.6 C 84 19 95 12/09/21 04:00 36.3 C L 85 14 96 12/09/21 04:00 126/59 L 12/09/21 02:00 36.3 C L 87 13 95 O2 Flow Rate 12/09/21 11:00 12/09/21 07:46 2 12/09/21 06:00 12/09/21 04:00 12/09/21 04:00 12/09/21 02:00 (1) Atrial fibrillation Atrial fibrillation type: unspecified chronic Qualified Code(s): I48.20 - Chronic atrial fibrillation, unspecified
[2021-12-09 15:09] LABS: Hematocrit (blood only) 28.6 % (34.1-44.9); Hemoglobin 9.3 g/dl (12.0-16.0)
[2021-12-09] MEDS: ROTIGOTINE 1 MG/24 HR TD SCH (15:09)
[2021-12-09] MEDS: CEFEPIME 2,000 MG in SYRINGE 0 ML IV SCH (15:09)
--- NOTE | 2021-12-09 16:39 | Hospitalist Progress Note ---
Date of Service December 09, 2021 Assessment & Plan (1) Atrial fibrillation with RVR: Plan Acute on chronic heart failure with preserved ejection fraction: Likely triggered secondary to A. fib RVR. Acute hypoxic respiratory failure likely secondary to above Possible Pneumonia & pneumonitis on top of CHF: Pulm evaluated, cefepime, and prednisone x 5 days. At admission, patient saturating 91% on room air but dyspneic with conversation and was placed on 2 L oxygen 12/03 echo with EF of 60 to 65%, normal left ventricular wall thickness and LV wall motion, atrial fibrillation with mild elevated ventricular response noted with a rate of 100 to 110 during echocardiogram. Serial CXR with basal opacities, on cefepime, prednisone daily for 5 days --> repeat CXR in 7 days to ensure clearance per Pulm. Strict I's and O's, daily weight, telemetry monitoring. Cardiology on board, medications being optimized for diuresis, held today d/t increasing Cr Atrial fibrillation with RVR Patient with A. fib RVR initially, on amiodarone/diltiazem/Eliquis at home. Patient states normally she is in NSR, status post unsuccessful cardioversion x 2 shocks on 12/06/2021. Currently rate under control/in Afib, cardiology on board, optimizing medications for A. fib RVR. EL over CKD stage IIIb Baseline creatinine of 1.6-1.8 per PCP office Creatinine up trended today, 2.37 today, likely secondary to ongoing diuresis need BMP in a.m., continue to monitor. Patient is a scheduled to see nephro on 12/16 to establish care. Mild hyponatremia: Na stable around 130, will continue to monitor, low na diet, high protein content. Anemia: Iron low and low normal ferritin, patient had diarrhea with p.o. iron supplement in the past, patient agreeable with IV iron supplement while in here. We will put her on 2 weeks of vitamin B12 supplement as well. Hemoglobin stable, continue to monitor as needed. Celiac disease: History of, dapsone as needed, GF diet. Chronic low back pain: Continue home meds RLS: Continue home meds Full code DVT prophylaxis: Eliquis Disposition: Continue PCU care. Pt lives alone in [place], [place] in 1st floor setup with 2 steps to enter, typically independent of adls/iadls, here visiting in [place] with Daughter in law Admission and Anticipated Discharge Date Admission Date: December 04, 2021 Subjective Patient seen and examined at bedside as a follow-up of acute on chronic heart failure with preserved ejection fraction, acute respiratory failure with hypoxia, atrial fibrillation with RVR and EL over CKD stage IIIb. Patient was sitting up in chair, on 2 L nasal cannula oxygen, denies any new acute events overnight, NAD, reports eating okay, reports some shortness of breath with activity but otherwise reports feeling wonderful. Patient denies any headache/dizziness/chest pain/sore throat/cough/belly pain/other review of symptoms. Patient does seem to have irregular bowel schedule at baseline, last bowel movement on Thursday, patient made aware to ask for as needed laxatives if she needs. Physical Exam Physical Exam: GENERAL: Alert and oriented x3. NAD, on RA. HEENT: No pallor, no icterus. Pupils equal, round and reactive to light. Oral mucosa moist. NECK: No JVD, no neck masses. HEART: S1 and S2 heard. irregular rate and rhythm. No murmur, no gallop. RESPIRATORY SYSTEM: Normal AP diameter. No accessory muscle use. No wheezing, b/b crackles. ABDOMEN: Soft, bowel sounds present, nontender, no distention. CENTRAL NERVOUS SYSTEM: No facial droop. Speech is clear. Obeys simple comman ds. Moves extremities. EXTREMITIES: trace ble edema, no erythema seen. Results & Data Results & Data ([facility]) Vital Signs (Past 12 Hours) Vital Signs Temp Pulse Resp BP Pulse Ox O2 Del Method O2 Flow Rate 12/09/21 11:00 145/79 H 12/09/21 07:46 Nasal Cannula 2 12/09/21 06:00 36.6 C 84 19 95
[2021-12-09] MEDS ORDERED: IRON SUCROSE 200 MG in 0.9 % SODIUM CHLORIDE 100 ML IV ONE (16:56)
[2021-12-09] MEDS: CYANOCOBALAMIN (B-12) 100 MCG TABLET PO SCH (17:38)
[2021-12-09] MEDS: MELATONIN 3 MG TAB PO PRN (22:20)
[2021-12-10] MEDS: ACETAMINOPHEN W/CODEINE #3 1 TAB PO PRN ×3 (02:59→22:20)
[2021-12-10 07:16] LABS: Hematocrit (blood only) 26.8 % (34.1-44.9); Hemoglobin 8.6 g/dl (12.0-16.0); Mean Corpuscular Hemoglobin 27.8 pg (25.0-34.0); Mean Corpuscular Hgb Conc 32.1 g/dL (32.0-36.0); Mean Corpuscular Volume 86.7 fL (80.0-100.0); Platelet Count 476 K/uL (130-400); RDW Coefficient of Variation 14.3 % (11.5-14.5); RDW Standard Deviation 45.1 fL (36.4-46.3); Red Blood Count 3.09 M/uL (3.93-5.22); White Blood Count 7.59 K/ul (4.8-10.8)
[2021-12-10 07:46] LABS: BUN Creatinine Ratio 26.7 (10-20); Calcium 8.7 mg/dl (8.5-10.1); Creatinine Clr Calc Pharmacy 18.9 ml/min; Est GFR (Non-African American) 19.8 ml/min; Magnesium 2.7 mg/dl (1.7-2.4); Phosphorus 3.6 mg/dl (2.5-4.9); Potassium 4.4 mmol/L (3.5-5.1)
[2021-12-10] MEDS: carvediloL 12.5 MG TAB PO SCH ×2 (08:29→15:47)
[2021-12-10] MEDS: CYANOCOBALAMIN (B-12) 100 MCG TABLET PO SCH (08:29)
[2021-12-10] MEDS: hydrALAZINE TAB 50 MG TAB PO SCH ×3 (08:29→20:04)
[2021-12-10] MEDS: CALCIUM 600MG + VIT D 400 IU TAB PO SCH (08:29)
[2021-12-10] MEDS: MULTIVITAMIN TAB PO SCH (08:30)
[2021-12-10] MEDS: GABAPENTIN 400 MG CAP PO SCH ×2 (08:30→20:06)
[2021-12-10] MEDS: APIXABAN 2.5 MG TAB PO SCH ×2 (08:30→20:07)
[2021-12-10] MEDS: PANTOprazole 40 MG TAB PO SCH (08:30)
[2021-12-10] MEDS: predniSONE 20 MG TAB PO SCH (08:30)
[2021-12-10] MEDS: rOPINIRole HCL 0.25 MG TABLET PO SCH ×2 (08:30→20:04)
[2021-12-10] MEDS: dilTIAZem HCL 240 MG CAPCR PO SCH (08:31)
[2021-12-10] MEDS: ADVANCED PROBIOTIC 1250 MG CAPSULE PO SCH (08:31)
--- NOTE | 2021-12-10 11:38 | Cardiology Progress Note ---
Date of Service December 10, 2021 Assessment & Plan (1) Acute on chronic heart failure with preserved ejection fraction (HFpEF): Plan: * Hold Lasix. * Repeat basic metabolic panel in a.m. * Monitor daily weight, fluid balance, GFR, and electrolytes. * Cardioversion attempted 12/06, unsuccessful x 2 shocks (2) Atrial fibrillation: Plan: * Reasonable rate control noted per telemetry * Eliquis restarted (briefly held due to concerns regarding pulmonary hemorrhage) * Continue rate control strategy with Cardizem and carvedilol * Consider referral for external direct-current cardioversion after 4 weeks of uninterrupted anticoagulation. (3) EL (acute kidney injury): Plan: * Creatinine mildly improved today, hold diuretic therapy (4) Acute respiratory failure with hypoxia: Plan: Antibiotics and corticosteroid treatment at per pulmonary medicine. Admission and Anticipated Discharge Date Admission Date: December 04, 2021 Subjective Patient seen examined the bedside. Reports feeling winded when walking to the bathroom today. Diuretic therapy placed on hold yesterday due to worsening renal insufficiency. Denies cough, orthopnea, or PND. No lower extremity edema. Telemetry reveals rate controlled atrial fibrillation with heart rate ranging 80-90s beats per minute. Review of Systems Review of Systems: All systems reviewed & are unremarkable except as noted in Subjective Physical Exam Constitutional: + ill appearing Respiratory: no respiratory distress Auscultation: + diminished lung sounds (Bases bilateral); no rales and no wheezes Cardiovascular: Rate/Rhythm: + irregularly irregular Heart Sounds: normal S1 and normal S2; no murmur Vessels: radial pulses present; no JVD Extremities: no edema Gastrointestinal (Abdomen): Inspection/Auscultation: normal bowel sounds; abdomen not distended Percussion/Palpation: abdomen soft; abdomen nontender, no guarding and abdomen not rigid Neurologic: CN's II-XI intact bilaterally and moves all extremities; no focal motor deficits Results & Data ([facility]) Vital Signs (Past 12 Hours) Vital Signs Temp Pulse Pulse Resp BP BP Pulse Ox 12/10/21 07:50 78 12/10/21 07:40 36.3 C L 101 H 16 156/79 H 90 12/10/21 03:00 36.5 C 76 18 124/77 93 12/09/21 23:51 88 O2 Del Method 12/10/21 07:50 12/10/21 07:40 Room Air 12/10/21 03:00 Room Air 12/09/21 23:51 (1) Atrial fibrillation Atrial fibrillation type: unspecified chronic Qualified Code(s): I48.20 - Ch ronic atrial fibrillation, unspecified
[2021-12-10] MEDS: ROTIGOTINE 1 MG/24 HR TD SCH (15:46)
[2021-12-10] MEDS: CEFEPIME 2,000 MG in SYRINGE 0 ML IV SCH (15:47)
--- NOTE | 2021-12-10 16:03 | Hospitalist Progress Note ---
Date of Service December 10, 2021 Assessment & Plan (1) Atrial fibrillation with RVR: Plan Acute on chronic heart failure with preserved ejection fraction: Likely triggered secondary to A. fib RVR. Acute hypoxic respiratory failure likely secondary to above Possible Pneumonia & pneumonitis on top of CHF: Pulm evaluated, cefepime, and prednisone x 5 days. At admission, patient saturating 91% on room air but dyspneic with conversation and was placed on 2 L oxygen 12/03 echo with EF of 60 to 65%, normal left ventricular wall thickness and LV wall motion, atrial fibrillation with mild elevated ventricular response noted with a rate of 100 to 110 during echocardiogram. Serial CXR with basal opacities, on cefepime for 7 days, prednisone daily for 5 days --> repeat CXR in 7 days to ensure clearance per Pulm. Strict I's and O's, daily weight, telemetry monitoring. Cardiology on board, medications being optimized for diuresis, held again today d/t elevated Cr Atrial fibrillation with RVR Patient with A. fib RVR initially, on amiodarone/diltiazem/Eliquis at home. Patient states normally she is in NSR, status post unsuccessful cardioversion x 2 shocks on 12/06/2021. Currently rate under control/in Afib, cardiology on board, on home cardizem and carvedilol w/ reasonable rate control, recommends referral for external direct- current cardioversion after 4 weeks of uninterrupted anticoagulation. EL over CKD stage IIIb Baseline creatinine of 1.6-1.8 per PCP office; creatinine up trended on the background of ongoing diuresis need Creatinine up minimally improved, 2.2.5 today. BMP in a.m., continue to monitor. Patient is a scheduled to see nephro on 12/16 to establish care. Mild hyponatremia: Na stable above 130, will continue to monitor, low na diet, high protein content. Anemia: Iron low and low normal ferritin, patient had diarrhea with p.o. iron supplement in the past, status post IV iron supplement while in here without problem. We will put her on 2 weeks of vitamin B12 supplement as well. Hemoglobin stable, continue to monitor as needed. Celiac disease: History of, dapsone as needed, GF diet. Chronic low back pain: Continue home meds RLS: Continue home meds Full code DVT prophylaxis: Eliquis Disposition: Continue PCU care. Pt lives alone in [place], [place] in 1st floor setup with 2 steps to enter, typically independent of adls/iadls, here visiting in [place] with Daughter in law. Admission and Anticipated Discharge Date Admission Date: December 04, 2021 Subjective Patient seen examined the bedside. Reports feeling better. Diuretic therapy on hold due to worsening renal insufficiency. Denies cough, orthopnea, or PND. No lower extremity edema. Telemetry reveals rate controlled atrial fibrillation with heart rate ranging 80-90s beats per minute. Physical Exam Physical Exam: GENERAL: Alert and oriented x3. NAD, on RA. HEENT: No pallor, no icterus. Pupils equal, round and reactive to light. Oral mucosa moist. NECK: No JVD, no neck masses. HEART: S1 and S2 heard. irregular rate and rhythm. No murmur, no gallop. RESPIRATORY SYSTEM: Normal AP diameter. No accessory muscle use. No wheezing, no crackles. ABDOMEN: Soft, bowel sounds present, nontender, no distention. CENTRAL NERVOUS SYSTEM: No facial droop. Speech is clear. Obeys simple commands. Moves extremities. EXTREMITIES: trace/1+ ble edema, no erythema seen. Results & Data Results & Data ([facility]) Vital Signs (Past 12 Hours) Vital Signs Temp Pulse Pulse Resp BP BP Pulse Ox 12/10/21 11:38 36.5 C 80 16 116/67 95 12/10/21 07:50 78 12/10/21 07:40 36.3 C L 101 H 16 156/79 H 90 O2 Del Method 12/10/21 11:38 Room Air 12/10/21 07:50 12/10/21 07:40 Room Air
[2021-12-10] MEDS: MELATONIN 3 MG TAB PO PRN (22:20)
[2021-12-11] MEDS: ACETAMINOPHEN W/CODEINE #3 1 TAB PO PRN ×2 (06:08→12:22)
[2021-12-11 06:43] LABS: Hematocrit (blood only) 26.5 % (34.1-44.9); Hemoglobin 8.8 g/dl (12.0-16.0); Mean Corpuscular Hemoglobin 28.3 pg (25.0-34.0); Mean Corpuscular Hgb Conc 33.2 g/dL (32.0-36.0); Mean Corpuscular Volume 85.2 fL (80.0-100.0); Platelet Count 494 K/uL (130-400); RDW Coefficient of Variation 14.5 % (11.5-14.5); RDW Standard Deviation 45.1 fL (36.4-46.3); Red Blood Count 3.11 M/uL (3.93-5.22); White Blood Count 9.04 K/ul (4.8-10.8)
[2021-12-11 07:01] LABS: Calcium 8.9 mg/dl (8.5-10.1); Creatinine Clr Calc Pharmacy 20.5 ml/min; Est GFR (African American) 25.4 ml/min; Est GFR (Non-African American) 21.9 ml/min; Potassium 4.6 mmol/L (3.5-5.1)
[2021-12-11] MEDS: APIXABAN 2.5 MG TAB PO SCH (08:18)
[2021-12-11] MEDS: GABAPENTIN 400 MG CAP PO SCH (08:18)
[2021-12-11] MEDS: rOPINIRole HCL 0.25 MG TABLET PO SCH (08:19)
[2021-12-11] MEDS: MULTIVITAMIN TAB PO SCH (08:19)
[2021-12-11] MEDS: hydrALAZINE TAB 50 MG TAB PO SCH (08:19)
[2021-12-11] MEDS: CYANOCOBALAMIN (B-12) 100 MCG TABLET PO SCH (08:19)
[2021-12-11] MEDS: carvediloL 12.5 MG TAB PO SCH (08:20)
[2021-12-11] MEDS: ADVANCED PROBIOTIC 1250 MG CAPSULE PO SCH (08:20)
[2021-12-11] MEDS: PANTOprazole 40 MG TAB PO SCH (08:20)
[2021-12-11] MEDS: dilTIAZem HCL 240 MG CAPCR PO SCH (08:20)
[2021-12-11] MEDS: CALCIUM 600MG + VIT D 400 IU TAB PO SCH (08:20)
--- NOTE | 2021-12-11 11:11 | Cardiology Progress Note ---
Date of Service December 11, 2021 Assessment & Plan (1) Acute on chronic heart failure with preserved ejection fraction (HFpEF): Plan: * Hold Lasix. * Restart 3 days post discharge with follow-up basic metabolic panel in 1 week. * Repeat basic metabolic panel in a.m. * Monitor daily weight, fluid balance, GFR, and electrolytes. * Cardioversion attempted 12/06, unsuccessful x 2 shocks * Cardiology follow-up in [facility] (2) Atrial fibrillation: Plan: * Rate control per telemetry * Eliquis restarted (briefly held due to concerns regarding pulmonary hemorrhage) * Continue rate control strategy with Cardizem and carvedilol * Consider referral for external direct-current cardioversion after 4 weeks of uninterrupted anticoagulation. (3) EL (acute kidney injury): Plan: * Creatinine trending downward today, hold diuretic therapy (4) Acute respiratory failure with hypoxia: Plan: Antibiotics and corticosteroid treatment at per pulmonary medicine. Admission and Anticipated Discharge Date Admission Date: December 04, 2021 Subjective Patient seen examined at the bedside. Clinically improved. No longer requiring supplemental oxygen. Denies chest pain or cough. Heart rate trending downward. Telemetry reveals atrial fibrillation with heart rate ranging 70-80 bpm. No palpitations, lightheadedness, or dizziness. Requesting discharge if possible. Lasix remains on hold. Review of Systems Review of Systems: All systems reviewed & are unremarkable except as noted in Subjective Physical Exam Constitutional: + ill appearing Respiratory: no respiratory distress Auscultation: + diminished lung sounds (Bases bilateral); no rales and no wheezes Cardiovascular: Rate/Rhythm: + irregularly irregular Heart Sounds: normal S1 and normal S2; no murmur Vessels: radial pulses present; no JVD Extremities: no edema Gastrointestinal (Abdomen): Inspection/Auscultation: normal bowel sounds; abdomen not distended Percussion/Palpation: abdomen soft; abdomen nontender, no guarding and abdomen not rigid Neurologic: CN's II-XI intact bilaterally and moves all extremities; no focal motor deficits Results & Data ([facility]) Vital Signs (Past 12 Hours) Vital Signs Temp Pulse Pulse Resp BP Pulse Ox O2 Del Method 12/11/21 08:06 36.5 C 76 16 122/65 94 Room Air 12/11/21 03:30 36.8 C 84 22 151/84 H 95 Room Air 12/10/21 23:57 89 09/20/22 23:31 36.7 C 82 20 123/64 95 Room Air (1) Atrial fibrillation Atrial fibrillation type: unspecified chronic Qualified Code(s): I48.20 - Chronic atrial fibrillation, unspecified
--- NOTE | 2021-12-11 12:15 | Discharge Summary ---
Date of Service December 11, 2021 Admission HPI Per Admitting Provider This is an 81-year-old female who has a significant past medical history of atrial fibrillation anticoagulated on Eliquis, CHF, chronic low back and hip pain, history of right breast cancer status postlumpectomy and radiation, RLS, neuropathy, mitral valve prolapse, GERD, celiac disease, dermatitis herpetiformis, CKD stage III with unknown baseline creatinine who presents to ED secondary worsening shortness of breath and lower extremity swelling for 2 to 3 weeks. Patient currently resides by herself in [place], [place]. She has been on the road for the past 3 weeks visiting family and is currently with her [id number] at bedside. Of significance she was hospitalized approximately 1 month ago at [facility] in [place]. She was monitored overnight and treated with IV diuresis due to CHF exacerbation and discharged home. Currently she is maintained on Lasix 40 mg daily. She has been unable to monitor her weights while being on the road. Over the last 6 months she has noticed an increase in pant size from a 10 to a 12. Over the last 2 to 3 weeks she has noticed a steady increase in lower extremity swelling even up to her knees. She also complains of shortness of breath at rest, with conversation and with exertion. Prior to her hospitalization 1 month ago she was walking on a regular basis for exercise. She does have known history of A. fib and states typically she is in sinus rhythm. She has been compliant with her amiodarone and Eliquis and has not missed any doses. She denies any recent fever, chills, sweats, lightheadedness, dizziness, fall, chest pain, cough, hemoptysis, URI symptoms, nausea, vomiting, abdominal pain, dysuria, increased urgency or frequency with urination, hematuria or melena. She has noticed an overall decrease in her urination. She also states her diet has fluctuated over the past 2 to 3 weeks secondary to recent travel. She does try to monitor her salt intake. She was recently placed on hydralazine, but otherwise no new meds changing. Admission Exam Per Admitting Provider Constitutional: WD/WN, Elderly F, vitals as above, tachypneic with conversation, NAD, sitting up in bed, pleasant Head: Normocephalic, Atraumatic Eyes: PERRL, conjunctivae normal, anicteric sclerae ENMT: external ear and nose normal, oropharynx normal Neck: trachea midline, no thyromegaly normal visual inspection Respiratory: increased respiratory effort, +tachypnea, lungs clear to auscultation, no wheeze, rales, rhonchi. Normal insp/exp effort, no accessory muscle use Cardiovascular: regular rate, Irregular rhythm, no murmur appreciated, trace to +1 pre tibial edema Vessels: no JVD or carotid bruit Chest: normal inspection of chest Abdomen: normal bowel sounds, soft, nontender, no hepatosplenomegaly Musculoskeletal: no cyanosis or clubbing, AROM x 4 Skin: no rashes, warm and dry normal turgor Neurologic: PERRL, EOMI, accommodation nl, no face palsy, no dysarthria CN's II-XI intact bilaterally and moves all extremities Psychiatric: A+Ox3, euthymic affect Lymphatic: no cervical or axillary lymphadenopathy : deferred Principal Diagnosis Acute on chronic heart failure with preserved ejection fraction Acute hypoxic respiratory failure Possible pneumonia and pneumonitis A. fib with RVR EL over CKD stage IIIb Discharge Exam GENERAL: Alert and oriented x3. NAD, on RA. HEENT: No pallor, no icterus. Pupils equal, round and reactive to light. Oral mucosa moist. NECK: No JVD, no neck masses. HEART: S1 and S2 heard. irregular rate and rhythm. No murmur, no gallop. RESPIRATORY SYSTEM: Normal AP diameter. No accessory muscle use. No wheezing, no crackles. ABDOMEN: Soft, bowel sounds present, nontender, no distention. CENTRAL NERVOUS SYSTEM: No facial droop. Speech is clear. Obeys simple commands. Moves extremities. EXTREMITIES: trace/1+ ble edema, no erythema seen. Discharge Data Allergies Allergy/AdvReac Type Severity Reaction Status Date / Time ferrous sulfate Allergy Diarrhea Verified 12/03/21 14:52 gluten Allergy Dermatitis Verified 12/03/21 14:52 herpetiformis pramipexole [From Mirapex] Allergy Dizziness Verified 12/03/21 14:52 Consultations 12/03/21 14:08 ED Decision to Admit Stat 12/03/21 14:51 Consult Cardiology Routine 12/03/21 15:02 HIM [Consult Health Information Management] Routine 12/05/21 14:04 Consult Anesthesiology Routine 12/06/21 18:22 Consult Online Marketing Analyst Stat Procedures Performed Operation Date: 12/06/21 07:30 Actual Procedures p Cardioversion - Messi Horvath DO Ordered Studies 12/06/21 20:13 CT chest diagnostic wo con Urgent Hospital Course (1) Atrial fibrillation with RVR: Plan 81 yo F was managed for the following: Acute on chronic heart failure with preserved ejection fraction: Likely triggered secondary to A. fib RVR. Acute hypoxic respiratory failure likely secondary to above Possible Pneumonia & pneumonitis on top of CHF: Pulm evaluated, cefepime/antibiotic for 7 days, and s/p prednisone x 5 days. At admission, patient saturating 91% on room air but dyspneic with conversation and was placed on 2 L oxygen 12/03 echo with EF of 60 to 65%, normal left ventricular wall thickness and LV wall motion, atrial fibrillation with mild elevated ventricular response noted with a rate of 100 to 110 during echocardiogram. Serial CXR with basal opacities, on cefepime for 7 days, prednisone daily for 5 days --> repeat CXR in 7 days to ensure clearance per Pulm. Patient reports moving around okay, no shortness of breath on exertion, reports feeling better, on room air, hemodynamically stable, patient to hold her Lasix for 3 days postdischarge [patient made aware], patient to complete the course of antibiotic starting 12/12/2021. Atrial fibrillation with RVR Patient with A. fib RVR initially, on amiodarone/diltiazem/Eliquis at home. Patient states normally she is in NSR, status post unsuccessful cardioversion x 2 shocks on 12/06/2021. Currently rate under control/in Afib, cardiology on board, continue with home cardizem and carvedilol, reasonable rate control, recommends referral for external direct-current cardioversion after 4 weeks of uninterrupted anticoagulation. EL over CKD stage IIIb Baseline creatinine of 1.6-1.8 per PCP office; creatinine up trended on the background of ongoing diuresis need Creatinine downtrending, BMP in a week time after visiting PCP office for transition of care evaluation. Patient made aware. Patient to hold Lasix for 3 days post discharge. Patient is a scheduled to see nephro on 12/16 to establish care. Mild hyponatremia: Na stable above 130, will continue to monitor, low na diet, high protein content. Anemia: Iron low and low normal ferritin, patient had diarrhea with p.o. iron supplement in the past, status post IV iron supplement while in here without problem. We will put her on 2 weeks of vitamin B12 supplement as well. Hemoglobin stable, continue to monitor as needed. Celiac disease: History of, dapsone as needed, GF diet. Chronic low back pain: Continue home meds RLS: Continue home meds Full code DVT prophylaxis: Eliquis Disposition: Continue PCU care. Pt lives alone in [place], [place] in 1st floor setup with 2 steps to enter, typically independent of adls/iadls, here visiting in [employer] with Daughter in law. Patient being discharged home with following instruction at the point of discharge: Follow-up with your primary care physician within a week time and likely will need BMP/Mg level drawn. You were evaluated by cardiology for acute on chronic heart failure and atrial fibrillation with RVR. Because of your slightly worsened kidney function [was on improving trend at the time of discharge], you will need to hold your Lasix for 3 days post discharge, maintain adequate fluid hydration of 1.5 to 2 L/day as discussed at bedside, and you will need repeat blood test as in point #1 in coordination with your PCP. You were also managed for possible pneumonia and pneumonitis, you completed the steroid course while in hospital, you will be discharged on antibiotic to complete the course. You will need a repeat chest x-ray in a week time to ensure clearance of your basilar opacities in the chest x-ray. Pulmonology evaluated you while inpatient. For your atrial fibrillation with RVR, cardiology recommends referral for external direct-current cardioversion after 4 weeks of uninterrupted anticoagulation. Please coordinate with your primary care physician regarding this matter. For your kidney injury, maintain fluid hydration as above, hold Lasix for 3 days post discharge, maintain follow-up with your kidney doctor on December 16. Take your medications as prescribed. Total Time Total Time Spent Total Time Spent (In Minutes): 40 Discharge Plan Discharge Items Patient Disposition: Home - Self-Care Reason For Visit: CHF Discharge Diagnosis: Acute on chronic heart failure with preserved ejection fraction Acute hypoxic respiratory failure Possible pneumonia and pneumonitis A. fib with RVR EL over CKD stage IIIb Activity: Resume your previous activity Non-emergency contact: Primary Care Provider Call non-emergency contact if: you have any medication questions, your symptoms worsen and your temperature is above 101 Follow-up/Referrals: PCP,NO [Primary Care Provider] - Diet: Gluten Free, Heart Healthy and Low Potassium (2gm) Addtl Attending Provider Instructions: Follow-up with your primary care physician within a week time and likely will need BMP/Mg level drawn. You were evaluated by cardiology for acute on chronic heart failure and atrial fibrillation with RVR. Because of your slightly worsened kidney function [was on improving trend at the time of discharge], you will need to hold your Lasix for 3 days post discharge, maintain adequate fluid hydration of 1.5 to 2 L/day as discussed at bedside, and you will need repeat blood test as in point #1 in coordination with your PCP. You were also managed for possible pneumonia and pneumonitis, you completed the steroid course while in hospital, you will be discharged on antibiotic to complete the course. You will need a repeat chest x-ray in a week time to ensure clearance of your basilar opacities in the chest x-ray. Pulmonology evaluated you while inpatient. For your atrial fibrillation with RVR, cardiology recommends referral for external direct-current cardioversion after 4 weeks of uninterrupted anticoagulation. Please coordinate with your primary care physician regarding this matter. For your kidney injury, maintain fluid hydration as above, hold Lasix for 3 days post discharge, maintain follow-up with your kidney doctor on December 16. Take your medications as prescribed. Pending Studies at Discharge: Yes (12/06 blood culture final results.) Stand-Alone Forms: My [facility] [employer], Smoking Cessation Medications and DC Order Prescriptions: New cyanocobalamin (vitamin B-12) [Vitamin B-12] 100 mcg Tablet 100 mcg PO QAM 14 Days Qty: 14 0RF cefdinir 300 mg capsule 300 mg PO DAILY 2 Days Qty: 2 0RF Continued multivitamin Tablet 2 tab PO DAILY carvedilol 12.5 mg Tablet 12.5 mg PO BIDM Rx Instructions: must administer with a meal/food diltiazem HCl 240 mg capsule,extended release 24hr 240 mg PO DAILY gabapentin 400 mg capsule 400 mg PO QID Rx Instructions: morning, afternoon, evening, bedtime acetaminophen-codeine 300-30 mg tablet 1 tab PO Q6H PRN (Reason: Pain) Rx Instructions: pain > or = 5/10 omeprazole 40 mg Capsule,Delayed Release(Dr/Ec) 40 mg PO DAILY ropinirole 0.25 mg Tablet 0.25 mg PO HS Rx Instructions: administer 1-3 hours before bedtime dapsone 25 mg Tablet 25 mg PO DAILY PRN (Reason: celiac disease) hydralazine 50 mg Tablet 50 mg PO TID zolpidem 6.25 mg Tablet,Ext Release Multiphase 6.25 mg PO HS calcium carbonate-vitamin D3 500 mg-10 mcg (400 unit) Tablet 1 tab PO DAILY Neupro 1 mg/24 hour patch 24 hour 1 mg transdermal DAILY apixaban 2.5 mg Tablet 2.5 mg PO BID Probiotic 3 billion cell Capsule 3,000 mmu cells PO DAILY Rx Instructions: administer with a meal furosemide 40 mg Tablet 40 mg PO DAILY Qty: 30 0RF Rx Instructions: Hold your lasix for 3 days after discharge as discussed at bedside. Discontinued amiodarone 100 mg tablet 100 mg PO DAILY Discharge Orders: Discharge Order (Routine); Ordered 12/11/21 Ordered By: Chester Medrano/Other Patient Handouts: A1C Admission Data Admit Date/Time: 12/04/21 13:02 Attending Provider: Chester Aponte Admit Provider: Sabrina Cavanaugh Primary Care Provider: PCP,NO Other Providers: aSbrina Cavanaugh ; Messi Horvath ; Farhan Kenny ; Clark Guardado
== END 2021-12-11 14:02 | disposition home or self-care (01) | DRG 291 ==
LOC: 4W 12:05 → ED 12:05 → SUATTDRO 14:11 → 4W 14:40 → SUATTDRO 12-04 13:02 → 1E 12-06 18:35 → 2S 12-09 21:37